=== PATIENT | female | born 1965 | race African-American/Black ===

== ENCOUNTER 2021-06-02 13:00 | Inpatient (IN) | payer OTHER ==
[2021-06-02 16:01] VITALS: BMI 20.9
[2021-06-02] MEDS ORDERED: MAGNESIUM CITRATE 300 ML BOTTLE PO PRN (17:17)
[2021-06-02] MEDS ORDERED: P-EPHED 60MG/TRIPROLIDI 2.5MG TABLET PO PRN (17:17)
[2021-06-02] MEDS ORDERED: MAGNESIUM HYDROX 2400MG/30ML ORAL SUSPENSION 30 ML CUP PO PRN (17:17)
[2021-06-02] MEDS ORDERED: LOPERAMIDE HCL 2 MG CAPSULE PO PRN (17:17)
[2021-06-02] MEDS ORDERED: NICOTINE 10 MG CARTRIDGE (INHALER) IH PRN (17:17)
[2021-06-02] MEDS ORDERED: guaiFENesin 200 MG/10 ML 10 ML UNIT-DOSE CUPS PO PRN (17:17)
[2021-06-02] MEDS ORDERED: ALBUTEROL SO4 HFA INHALER IH PRN (17:30)
[2021-06-02] MEDS ORDERED: SIMETHICONE 125 MG PO PRN (17:43)
[2021-06-02] MEDS ORDERED: diphenhydrAMINE HCL 25 MG CAPSULE (FP) PO PRN (17:43)
[2021-06-02] MEDS ORDERED: EMTRICITABINE 200MG/TENOFOVIR 300MG PO SCH (17:45)
[2021-06-02] MEDS ORDERED: ATAZANAVIR SO4 300 MG CAPSULE PO SCH (18:00)
[2021-06-02] MEDS ORDERED: SIMETHICONE 80 MG TAB.CHEW (FP) PO PRN (18:10)
[2021-06-02] MEDS: PANTOPRAZOLE 40 MG TABLET PO SCH (18:44)
[2021-06-02] MEDS: hydrOXYzine PAMOATE 25 MG CAPSULE (FP) PO SCH ×2 (18:44→21:10)
[2021-06-02] MEDS: BICTEGRAV/EMTRICIT/TENOFOV (BIKTARVY) 50-200-25 MG TABLET PO SCH (19:36)
[2021-06-02] MEDS: ACETAMINOPHEN 325 MG TABLET (FP) PO PRN (19:57)
[2021-06-02] MEDS: MELATONIN 5 MG TABLETS PO SCH (21:09)
[2021-06-02] MEDS: THIAMINE HCL 100 MG TABLET (FP) PO SCH (21:09)
[2021-06-02] MEDS ORDERED: PATIENT'S OWN MEDICATION (NON-FORMULARY) (Omeprazole 20 MG Capsule.Dr) PO SCH (22:00)
[2021-06-02 22:39] LABS: EPI CELLS 3 /uL (0-25.1); HYALINE CASTS 0 /uL (0-3.1); URINE APPEARANCE CLEAR; URINE BACTERIA 34 /uL (0-1359); URINE BILIRUBIN NEGATIVE (NEGATIVE); URINE COLOR YELLOW; URINE GLUCOSE (UA) NEGATIVE (NEGATIVE); URINE KETONE NEGATIVE (NEGATIVE); URINE LEUK ESTERASE 1+ (NEGATIVE); URINE NITRITE NEGATIVE (NEGATIVE); URINE PROTEIN NEGATIVE (NEGATIVE); URINE RBC 4 /uL (0-23.9); URINE UROBILINOGEN 0.2 mg/dL (0.2-1.0); URINE WBC 30 /uL (0-25.8)
[2021-06-03] MEDS: hydrOXYzine PAMOATE 25 MG CAPSULE (FP) PO SCH ×3 (06:42→13:25)
[2021-06-03 10:09] LABS: HEMATOCRIT 35.9 % (32.4-45.2); HEMOGLOBIN 12.4 GM/dL (10.7-15.3); MCHC 34.6 g/dl (32.0-36.0); MEAN CELL VOLUME 98.2 fl (80-96); MEAN PLT VOLUME 8.1 fl (7.5-11.1); PLATELET COUNT 321 10^3/uL (134-434); RBC 3.66 M/mm3 (3.60-5.2); WHITE BLOOD COUNT 4.4 K/mm3 (4.0-10.0)
[2021-06-03 10:29] LABS: CALCIUM 8.8 mg/dL (8.5-10.1)
[2021-06-03 10:30] LABS: ALBUMIN 3.4 g/dl (3.4-5.0); BLOOD UREA NITROGEN 16.5 mg/dL (7-18)
[2021-06-03 10:33] LABS: CREATININE 0.8 mg/dL (0.55-1.3)
[2021-06-03 10:35] LABS: TOT PROT 7.2 g/dl (6.4-8.2)
[2021-06-03] MEDS: PRENATAL VITAMINS W/ FOLIC ACID TABLET (FP) PO SCH (11:24)
[2021-06-03] MEDS: PANTOPRAZOLE 40 MG TABLET PO SCH (11:25)
[2021-06-03] MEDS: BICTEGRAV/EMTRICIT/TENOFOV (BIKTARVY) 50-200-25 MG TABLET PO SCH (11:25)
[2021-06-03] MEDS: IBUPROFEN 400 MG TABLET (FP) PO PRN ×2 (11:44→18:15)
[2021-06-03] MEDS: hydrOXYzine HCL 10 MG/5 ML LIQUID BULK BOTTLE PO PRN (18:15)
[2021-06-03] MEDS: MELATONIN 5 MG TABLETS PO SCH (21:33)
[2021-06-03] MEDS: THIAMINE HCL 100 MG TABLET (FP) PO SCH (21:33)
[2021-06-03] MEDS: ACETAMINOPHEN 325 MG TABLET (FP) PO PRN (21:34)
[2021-06-04] MEDS ORDERED: diphenhydrAMINE HCL 25 MG CAPSULE (FP) PO ONE (01:40)
[2021-06-04] MEDS: ACETAMINOPHEN 325 MG TABLET (FP) PO PRN (01:45)
[2021-06-04] MEDS: IBUPROFEN 400 MG TABLET (FP) PO PRN ×2 (10:30→19:02)
[2021-06-04] MEDS: PRENATAL VITAMINS W/ FOLIC ACID TABLET (FP) PO SCH (10:30)
[2021-06-04] MEDS: PANTOPRAZOLE 40 MG TABLET PO SCH (10:30)
[2021-06-04] MEDS: hydrOXYzine HCL 10 MG/5 ML LIQUID BULK BOTTLE PO PRN ×2 (10:32→21:58)
[2021-06-04] MEDS ORDERED: PT OWN MED DRAWER 7, Y5N ONE (10:33)
[2021-06-04] MEDS: BICTEGRAV/EMTRICIT/TENOFOV (BIKTARVY) 50-200-25 MG TABLET PO SCH (11:35)
[2021-06-04] MEDS: MELATONIN 5 MG TABLETS PO SCH (21:12)
[2021-06-04] MEDS: THIAMINE HCL 100 MG TABLET (FP) PO SCH (21:13)
[2021-06-05] MEDS: IBUPROFEN 400 MG TABLET (FP) PO PRN ×2 (10:07→18:45)
[2021-06-05] MEDS: PRENATAL VITAMINS W/ FOLIC ACID TABLET (FP) PO SCH (10:07)
[2021-06-05] MEDS: PANTOPRAZOLE 40 MG TABLET PO SCH (10:07)
[2021-06-05] MEDS: BICTEGRAV/EMTRICIT/TENOFOV (BIKTARVY) 50-200-25 MG TABLET PO SCH (11:06)
[2021-06-05] MEDS: THIAMINE HCL 100 MG TABLET (FP) PO SCH (21:14)
[2021-06-05] MEDS: MELATONIN 5 MG TABLETS PO SCH (21:14)
[2021-06-05] MEDS: hydrOXYzine HCL 10 MG/5 ML LIQUID BULK BOTTLE PO PRN (21:15)
[2021-06-05] MEDS: ACETAMINOPHEN 325 MG TABLET (FP) PO PRN (22:40)
[2021-06-06] MEDS: IBUPROFEN 400 MG TABLET (FP) PO PRN (06:56)
[2021-06-06] MEDS: BICTEGRAV/EMTRICIT/TENOFOV (BIKTARVY) 50-200-25 MG TABLET PO SCH (10:08)
[2021-06-06] MEDS: PRENATAL VITAMINS W/ FOLIC ACID TABLET (FP) PO SCH (10:08)
[2021-06-06] MEDS: PANTOPRAZOLE 40 MG TABLET PO SCH (10:08)
[2021-06-06] MEDS: ACETAMINOPHEN 325 MG TABLET (FP) PO PRN ×3 (10:09→19:51)
[2021-06-06] MEDS: THIAMINE HCL 100 MG TABLET (FP) PO SCH (21:13)
[2021-06-06] MEDS: MELATONIN 5 MG TABLETS PO SCH (21:13)
[2021-06-06] MEDS: hydrOXYzine HCL 10 MG/5 ML LIQUID BULK BOTTLE PO PRN (21:14)
[2021-06-07] MEDS: ACETAMINOPHEN 325 MG TABLET (FP) PO PRN ×3 (06:50→21:25)
[2021-06-07] MEDS: PRENATAL VITAMINS W/ FOLIC ACID TABLET (FP) PO SCH (10:05)
[2021-06-07] MEDS: PANTOPRAZOLE 40 MG TABLET PO SCH (10:05)
[2021-06-07] MEDS: BICTEGRAV/EMTRICIT/TENOFOV (BIKTARVY) 50-200-25 MG TABLET PO SCH (10:05)
[2021-06-07] MEDS: IBUPROFEN 400 MG TABLET (FP) PO PRN (10:06)
[2021-06-07] MEDS: THIAMINE HCL 100 MG TABLET (FP) PO SCH (21:22)
[2021-06-07] MEDS: MELATONIN 5 MG TABLETS PO SCH (21:22)
[2021-06-07] MEDS: MAG HYDROX/AL HYDROX/SIMETH 30 ML UNIT-DOSE CUP PO PRN (21:23)
[2021-06-07] MEDS: hydrOXYzine HCL 10 MG/5 ML LIQUID BULK BOTTLE PO PRN (21:24)
[2021-06-08] MEDS: ACETAMINOPHEN 325 MG TABLET (FP) PO PRN ×2 (06:45→21:35)
[2021-06-08] MEDS ORDERED: MASKS NR ONE (06:49)
[2021-06-08] MEDS: PANTOPRAZOLE 40 MG TABLET PO SCH (09:42)
[2021-06-08] MEDS: BICTEGRAV/EMTRICIT/TENOFOV (BIKTARVY) 50-200-25 MG TABLET PO SCH (09:42)
[2021-06-08] MEDS: PRENATAL VITAMINS W/ FOLIC ACID TABLET (FP) PO SCH (09:43)
[2021-06-08] MEDS: IBUPROFEN 400 MG TABLET (FP) PO PRN (09:45)
[2021-06-08] MEDS ORDERED: COLLOIDAL OATMEAL 1 BAR EACH TP PRN (10:09)
[2021-06-08] MEDS: NAPROXEN 500 MG TABLET PO SCH ×2 (10:52→21:31)
[2021-06-08] MEDS ORDERED: PT OWN MED DRAWER 7, Y5N ONE (19:48)
[2021-06-08] MEDS: diphenhydrAMINE HCL 25 MG CAPSULE (FP) PO SCH (21:31)
[2021-06-08] MEDS: THIAMINE HCL 100 MG TABLET (FP) PO SCH (21:31)
[2021-06-08] MEDS: MELATONIN 5 MG TABLETS PO SCH (21:31)
[2021-06-08] MEDS: LIDOCAINE HCL 5% TOP OINTMENT 50 GM TUBE TP SCH (21:33)
[2021-06-08] MEDS: MAG HYDROX/AL HYDROX/SIMETH 30 ML UNIT-DOSE CUP PO PRN (23:33)
[2021-06-09] MEDS: ACETAMINOPHEN 325 MG TABLET (FP) PO PRN ×2 (06:38→10:05)
[2021-06-09] MEDS: MAG HYDROX/AL HYDROX/SIMETH 30 ML UNIT-DOSE CUP PO PRN (06:41)
[2021-06-09 07:07] VITALS: TEMP 96.9
[2021-06-09] MEDS ORDERED: PT OWN MED DRAWER 7, Y5N ONE ×2 (09:06→21:37)
[2021-06-09] MEDS: NAPROXEN 500 MG TABLET PO SCH ×2 (10:05→21:35)
[2021-06-09] MEDS: PANTOPRAZOLE 40 MG TABLET PO SCH (10:05)
[2021-06-09] MEDS: BICTEGRAV/EMTRICIT/TENOFOV (BIKTARVY) 50-200-25 MG TABLET PO SCH (10:06)
[2021-06-09] MEDS: PRENATAL VITAMINS W/ FOLIC ACID TABLET (FP) PO SCH (10:06)
[2021-06-09] MEDS: THIAMINE HCL 100 MG TABLET (FP) PO SCH (21:35)
[2021-06-09] MEDS: diphenhydrAMINE HCL 25 MG CAPSULE (FP) PO SCH (21:35)
[2021-06-09] MEDS: MELATONIN 5 MG TABLETS PO SCH (21:35)
[2021-06-09] MEDS: hydrOXYzine HCL 10 MG/5 ML LIQUID BULK BOTTLE PO PRN (21:36)
[2021-06-09] MEDS: LIDOCAINE HCL 5% TOP OINTMENT 50 GM TUBE TP SCH (21:37)
[2021-06-10] MEDS: ACETAMINOPHEN 325 MG TABLET (FP) PO PRN ×2 (06:10→17:17)
[2021-06-10] MEDS: MAG HYDROX/AL HYDROX/SIMETH 30 ML UNIT-DOSE CUP PO PRN (06:10)
[2021-06-10 06:33] VITALS: BP 123/80; PULSE 82
[2021-06-10] MEDS: PANTOPRAZOLE 40 MG TABLET PO SCH (09:58)
[2021-06-10] MEDS: NAPROXEN 500 MG TABLET PO SCH ×2 (09:58→21:22)
[2021-06-10] MEDS: BICTEGRAV/EMTRICIT/TENOFOV (BIKTARVY) 50-200-25 MG TABLET PO SCH (09:58)
[2021-06-10] MEDS: PRENATAL VITAMINS W/ FOLIC ACID TABLET (FP) PO SCH (09:58)
[2021-06-10] MEDS ORDERED: PT OWN MED DRAWER 7, Y5N ONE ×3 (10:01→19:23)
[2021-06-10] MEDS: diphenhydrAMINE HCL 25 MG CAPSULE (FP) PO SCH (21:22)
[2021-06-10] MEDS: MELATONIN 5 MG TABLETS PO SCH (21:24)
[2021-06-10] MEDS: THIAMINE HCL 100 MG TABLET (FP) PO SCH (21:24)
[2021-06-10] MEDS: LIDOCAINE HCL 5% TOP OINTMENT 50 GM TUBE TP SCH (21:25)
[2021-06-11] MEDS: MAG HYDROX/AL HYDROX/SIMETH 30 ML UNIT-DOSE CUP PO PRN (03:30)
[2021-06-11] MEDS: ACETAMINOPHEN 325 MG TABLET (FP) PO PRN (03:31)
[2021-06-11] MEDS ORDERED: PT OWN MED DRAWER 7, Y5N ONE ×2 (06:07→08:52)
[2021-06-11] MEDS: PRENATAL VITAMINS W/ FOLIC ACID TABLET (FP) PO SCH (09:25)
[2021-06-11] MEDS: BICTEGRAV/EMTRICIT/TENOFOV (BIKTARVY) 50-200-25 MG TABLET PO SCH (09:26)
[2021-06-11] MEDS: PANTOPRAZOLE 40 MG TABLET PO SCH (09:26)
[2021-06-11] MEDS: NAPROXEN 500 MG TABLET PO SCH (09:26)
== END 2021-06-11 09:52 | disposition home or self-care (01) | DRG 772 ==
LOC: YASAS 13:00 → Y3W 16:51
PROVIDERS: ADMIT Allergy & Immunology; ATTEND Allergy & Immunology
PROC: HZ42ZZZ Group Counseling for Substance Abuse Treatment, Cognitive-Behavioral (ICD-10-PCS; principal; 2021-06-02)
DX: F10.20 Alcohol dependence, uncomplicated (principal); F14.20 Cocaine dependence, uncomplicated; F17.210 Nicotine dependence, cigarettes, uncomplicated; F10.24 Alcohol dependence with alcohol-induced mood disorder; F10.280 Alcohol dependence with alcohol-induced anxiety disorder; F10.282 Alcohol dependence with alcohol-induced sleep disorder; B20 Human immunodeficiency virus [HIV] disease; J45.909 Unspecified asthma, uncomplicated; K21.9 Gastro-esophageal reflux disease without esophagitis; D57.3 Sickle-cell trait; L29.9 Pruritus, unspecified; M79.10 Myalgia, unspecified site; M81.0 Age-related osteoporosis without current pathological fracture; Z86.19 Personal history of other infectious and parasitic diseases; Z56.0 Unemployment, unspecified
CPT/HCPCS: 36415; 71046-TC-FY; 80053; 81003; 85027; 86593; 86780; C9803; U0003; U0005

== ENCOUNTER 2021-07-31 13:23 | Inpatient (IN) | payer OTHER ==
[2021-07-31] MEDS ORDERED: MAGNESIUM CITRATE 300 ML BOTTLE PO PRN (15:34)
[2021-07-31] MEDS ORDERED: MENTHOL/PHENOL 1 EACH UD MM PRN (15:34)
[2021-07-31] MEDS ORDERED: MAGNESIUM HYDROX 2400MG/30ML ORAL SUSPENSION 30 ML CUP PO PRN (15:34)
[2021-07-31] MEDS ORDERED: P-EPHED 60MG/TRIPROLIDI 2.5MG TABLET PO PRN (15:34)
[2021-07-31] MEDS ORDERED: guaiFENesin 200 MG/10 ML 10 ML UNIT-DOSE CUPS PO PRN (15:34)
[2021-07-31] MEDS ORDERED: MAG HYDROX/AL HYDROX/SIMETH 30 ML UNIT-DOSE CUP PO PRN (15:34)
[2021-07-31] MEDS ORDERED: LOPERAMIDE HCL 2 MG CAPSULE PO PRN (15:34)
[2021-07-31] MEDS ORDERED: ALBUTEROL SO4 HFA INHALER IH PRN (15:52)
[2021-07-31 21:17] VITALS: BMI 20.5
[2021-08-01] MEDS: NAPROXEN 375 MG TABLET PO SCH ×3 (00:24→21:57)
[2021-08-01] MEDS: THIAMINE HCL 100 MG TABLET (FP) PO SCH ×2 (00:24→21:56)
[2021-08-01] MEDS: MELATONIN 5 MG TABLETS PO SCH ×2 (00:25→21:56)
[2021-08-01] MEDS ORDERED: ERGOCALCIFEROL (VIT D2) 50,000 UNIT (1.25 MG) CAPSULE PO SCH (10:00)
[2021-08-01] MEDS ORDERED: MULTIVITAMINS (DAILY MVI) TABLET (FP) PO SCH (11:00)
[2021-08-01] MEDS: PANTOPRAZOLE 40 MG TABLET PO SCH (11:15)
[2021-08-01] MEDS: COLLOIDAL OATMEAL 1 BAR EACH TP PRN (11:17)
[2021-08-01] MEDS: BICTEGRAV/EMTRICIT/TENOFOV (BIKTARVY) 50-200-25 MG TABLET PO SCH (11:18)
[2021-08-01] MEDS: PRENATAL VITAMINS W/ FOLIC ACID TABLET (FP) PO SCH (11:18)
[2021-08-01] MEDS: FLUTICASONE/SALMETEROL 100 MCG/50 MCG DISKUS IH SCH ×2 (14:28→21:56)
[2021-08-01] MEDS: ASCORBIC ACID 250 MG TABLET (FP) PO SCH (14:30)
[2021-08-01] MEDS: ACETAMINOPHEN 325 MG TABLET (FP) PO PRN (14:35)
[2021-08-01] MEDS: GABAPENTIN 300 MG CAPSULE PO SCH ×2 (14:35→21:56)
[2021-08-01 14:38] LABS: EOS % 7.7 % (0-4.5); HEMATOCRIT 33.9 % (32.4-45.2); HEMOGLOBIN 11.5 GM/dL (10.7-15.3); LYMPH % 31.2 % (8-40); MCH 33.1 pg (25.7-33.7); MEAN CELL VOLUME 97.2 fl (80-96); MEAN PLT VOLUME 8.5 fl (7.5-11.1); MONO % 10.4 % (3.8-10.2); NEUT % 49.7 % (42.8-82.8); PLATELET COUNT 387 10^3/uL (134-434); RBC 3.49 M/mm3 (3.60-5.2); RDW 14.2 % (11.6-15.6); WHITE BLOOD COUNT 4.4 K/mm3 (4.0-10.0)
[2021-08-01] MEDS: hydrOXYzine PAMOATE 25 MG CAPSULE (FP) PO PRN (21:56)
[2021-08-01] MEDS: METHYL SALICYLATE/MENTHOL OINT 30 GM TUBE TP SCH (21:56)
[2021-08-01] MEDS: SIMETHICONE 80 MG TAB.CHEW (FP) PO PRN (21:59)
[2021-08-01 23:00] LABS: BLOOD UREA NITROGEN 15.3 mg/dL (7-18); CREATININE 0.6 mg/dL (0.55-1.3)
[2021-08-01 23:01] LABS: ALBUMIN 3.6 g/dl (3.4-5.0); BILIRUBIN,TOTAL 0.2 mg/dL (0.2-1); CALCIUM 8.9 mg/dL (8.5-10.1)
[2021-08-02] MEDS: GABAPENTIN 300 MG CAPSULE PO SCH ×3 (06:57→21:52)
[2021-08-02] MEDS: PRENATAL VITAMINS W/ FOLIC ACID TABLET (FP) PO SCH (10:38)
[2021-08-02] MEDS: PANTOPRAZOLE 40 MG TABLET PO SCH (10:38)
[2021-08-02] MEDS: CALCIUM CARBONATE 650 MG TABLET PO SCH (10:39)
[2021-08-02] MEDS: VITAMIN B COMPLEX W/C COMBO TABLET (FP) PO SCH (10:39)
[2021-08-02] MEDS: FLUTICASONE/SALMETEROL 100 MCG/50 MCG DISKUS IH SCH ×2 (10:39→21:52)
[2021-08-02] MEDS: ASCORBIC ACID 250 MG TABLET (FP) PO SCH (10:39)
[2021-08-02] MEDS: NAPROXEN 375 MG TABLET PO SCH ×2 (10:40→21:54)
[2021-08-02] MEDS: METHYL SALICYLATE/MENTHOL OINT 30 GM TUBE TP SCH ×2 (10:42→21:52)
[2021-08-02] MEDS: BICTEGRAV/EMTRICIT/TENOFOV (BIKTARVY) 50-200-25 MG TABLET PO SCH (10:42)
[2021-08-02] MEDS: ACETAMINOPHEN 325 MG TABLET (FP) PO PRN (10:45)
[2021-08-02] MEDS: THIAMINE HCL 100 MG TABLET (FP) PO SCH (21:52)
[2021-08-02] MEDS: SIMETHICONE 80 MG TAB.CHEW (FP) PO PRN (21:52)
[2021-08-02] MEDS: hydrOXYzine PAMOATE 25 MG CAPSULE (FP) PO PRN (21:52)
[2021-08-02] MEDS: MELATONIN 5 MG TABLETS PO SCH (21:52)
[2021-08-03] MEDS: GABAPENTIN 300 MG CAPSULE PO SCH ×3 (06:42→21:17)
[2021-08-03] MEDS ORDERED: PT OWN MED DRAWER 7, Y5N ONE (09:23)
[2021-08-03] MEDS: BICTEGRAV/EMTRICIT/TENOFOV (BIKTARVY) 50-200-25 MG TABLET PO SCH (10:23)
[2021-08-03] MEDS: METHYL SALICYLATE/MENTHOL OINT 30 GM TUBE TP SCH (10:23)
[2021-08-03] MEDS: PRENATAL VITAMINS W/ FOLIC ACID TABLET (FP) PO SCH (10:23)
[2021-08-03] MEDS: PANTOPRAZOLE 40 MG TABLET PO SCH (10:23)
[2021-08-03] MEDS: NAPROXEN 375 MG TABLET PO SCH ×2 (10:24→21:16)
[2021-08-03] MEDS: CALCIUM CARBONATE 650 MG TABLET PO SCH (10:25)
[2021-08-03] MEDS: VITAMIN B COMPLEX W/C COMBO TABLET (FP) PO SCH (10:25)
[2021-08-03] MEDS: FLUTICASONE/SALMETEROL 100 MCG/50 MCG DISKUS IH SCH ×2 (10:26→21:17)
[2021-08-03] MEDS: ASCORBIC ACID 250 MG TABLET (FP) PO SCH (10:27)
[2021-08-03] MEDS: SIMETHICONE 80 MG TAB.CHEW (FP) PO PRN (10:30)
[2021-08-03] MEDS: ACETAMINOPHEN 325 MG TABLET (FP) PO PRN (13:55)
[2021-08-03] MEDS: LIDOCAINE 5% TOPICAL PATCH TP SCH (13:55)
[2021-08-03] MEDS: THIAMINE HCL 100 MG TABLET (FP) PO SCH (21:15)
[2021-08-03] MEDS: MELATONIN 5 MG TABLETS PO SCH (21:17)
[2021-08-03] MEDS: LIDOCAINE PATCH REMOVAL MC SCH (21:19)
[2021-08-04] MEDS: GABAPENTIN 300 MG CAPSULE PO SCH ×3 (06:27→21:02)
[2021-08-04] MEDS: ACETAMINOPHEN 325 MG TABLET (FP) PO PRN ×2 (06:32→23:34)
[2021-08-04] MEDS: PANTOPRAZOLE 40 MG TABLET PO SCH (10:28)
[2021-08-04] MEDS: PRENATAL VITAMINS W/ FOLIC ACID TABLET (FP) PO SCH (10:28)
[2021-08-04] MEDS: FLUTICASONE/SALMETEROL 100 MCG/50 MCG DISKUS IH SCH ×2 (10:29→21:03)
[2021-08-04] MEDS: BICTEGRAV/EMTRICIT/TENOFOV (BIKTARVY) 50-200-25 MG TABLET PO SCH (10:29)
[2021-08-04] MEDS: CALCIUM CARBONATE 650 MG TABLET PO SCH (10:29)
[2021-08-04] MEDS: LIDOCAINE 5% TOPICAL PATCH TP SCH (10:31)
[2021-08-04] MEDS: VITAMIN B COMPLEX W/C COMBO TABLET (FP) PO SCH (10:32)
[2021-08-04] MEDS: SIMETHICONE 80 MG TAB.CHEW (FP) PO PRN (10:59)
[2021-08-04] MEDS: NAPROXEN 375 MG TABLET PO SCH ×2 (10:59→21:02)
[2021-08-04] MEDS: ASCORBIC ACID 250 MG TABLET (FP) PO SCH (11:00)
[2021-08-04] MEDS ORDERED: PT OWN MED DRAWER 7, Y5N ONE ×2 (11:03→19:20)
[2021-08-04] MEDS: MELATONIN 5 MG TABLETS PO SCH (21:02)
[2021-08-04] MEDS: THIAMINE HCL 100 MG TABLET (FP) PO SCH (21:02)
[2021-08-04] MEDS: LIDOCAINE PATCH REMOVAL MC SCH (21:03)
[2021-08-04] MEDS: hydrOXYzine PAMOATE 25 MG CAPSULE (FP) PO PRN (23:34)
[2021-08-05] MEDS: GABAPENTIN 300 MG CAPSULE PO SCH ×3 (06:17→22:03)
[2021-08-05] MEDS: ACETAMINOPHEN 325 MG TABLET (FP) PO PRN (06:19)
[2021-08-05] MEDS: PANTOPRAZOLE 40 MG TABLET PO SCH (10:37)
[2021-08-05] MEDS: PRENATAL VITAMINS W/ FOLIC ACID TABLET (FP) PO SCH (10:37)
[2021-08-05] MEDS: NAPROXEN 375 MG TABLET PO SCH ×2 (10:38→22:02)
[2021-08-05] MEDS: FLUTICASONE/SALMETEROL 100 MCG/50 MCG DISKUS IH SCH ×2 (10:39→22:02)
[2021-08-05] MEDS: VITAMIN B COMPLEX W/C COMBO TABLET (FP) PO SCH (10:40)
[2021-08-05] MEDS: CALCIUM CARBONATE 650 MG TABLET PO SCH (10:41)
[2021-08-05] MEDS: LIDOCAINE 5% TOPICAL PATCH TP SCH (10:41)
[2021-08-05] MEDS: ASCORBIC ACID 250 MG TABLET (FP) PO SCH (10:42)
[2021-08-05] MEDS ORDERED: PT OWN MED DRAWER 7, Y5N ONE (10:55)
[2021-08-05] MEDS: BICTEGRAV/EMTRICIT/TENOFOV (BIKTARVY) 50-200-25 MG TABLET PO SCH (13:18)
[2021-08-05] MEDS: MELATONIN 5 MG TABLETS PO SCH (22:02)
[2021-08-05] MEDS: LIDOCAINE PATCH REMOVAL MC SCH (22:02)
[2021-08-05] MEDS: THIAMINE HCL 100 MG TABLET (FP) PO SCH (22:03)
[2021-08-05] MEDS: SIMETHICONE 80 MG TAB.CHEW (FP) PO PRN (22:06)
[2021-08-06] MEDS: GABAPENTIN 300 MG CAPSULE PO SCH ×3 (07:04→21:12)
[2021-08-06] MEDS: FLUTICASONE/SALMETEROL 100 MCG/50 MCG DISKUS IH SCH ×2 (10:33→21:10)
[2021-08-06] MEDS: NAPROXEN 375 MG TABLET PO SCH ×2 (10:33→21:11)
[2021-08-06] MEDS: CALCIUM CARBONATE 650 MG TABLET PO SCH (10:34)
[2021-08-06] MEDS: ASCORBIC ACID 250 MG TABLET (FP) PO SCH (10:34)
[2021-08-06] MEDS: PANTOPRAZOLE 40 MG TABLET PO SCH (10:34)
[2021-08-06] MEDS: VITAMIN B COMPLEX W/C COMBO TABLET (FP) PO SCH (10:34)
[2021-08-06] MEDS: LIDOCAINE 5% TOPICAL PATCH TP SCH (10:34)
[2021-08-06] MEDS: PRENATAL VITAMINS W/ FOLIC ACID TABLET (FP) PO SCH (10:34)
[2021-08-06] MEDS: BICTEGRAV/EMTRICIT/TENOFOV (BIKTARVY) 50-200-25 MG TABLET PO SCH (10:34)
[2021-08-06] MEDS: SIMETHICONE 80 MG TAB.CHEW (FP) PO PRN ×2 (10:36→21:13)
[2021-08-06] MEDS: BACITRACIN 0.9 GM PACKET TP SCH ×2 (12:34→22:27)
[2021-08-06] MEDS ORDERED: PT OWN MED DRAWER 7, Y5N ONE (20:02)
[2021-08-06] MEDS: MELATONIN 5 MG TABLETS PO SCH (21:11)
[2021-08-06] MEDS: THIAMINE HCL 100 MG TABLET (FP) PO SCH (21:12)
[2021-08-06] MEDS: hydrOXYzine PAMOATE 25 MG CAPSULE (FP) PO PRN (21:13)
[2021-08-06] MEDS: LIDOCAINE PATCH REMOVAL MC SCH (22:27)
[2021-08-07] MEDS: GABAPENTIN 300 MG CAPSULE PO SCH ×3 (07:15→21:24)
[2021-08-07] MEDS: BICTEGRAV/EMTRICIT/TENOFOV (BIKTARVY) 50-200-25 MG TABLET PO SCH (10:43)
[2021-08-07] MEDS: PRENATAL VITAMINS W/ FOLIC ACID TABLET (FP) PO SCH (10:43)
[2021-08-07] MEDS: PANTOPRAZOLE 40 MG TABLET PO SCH (10:43)
[2021-08-07] MEDS: BACITRACIN 0.9 GM PACKET TP SCH ×2 (10:43→21:25)
[2021-08-07] MEDS: CALCIUM CARBONATE 650 MG TABLET PO SCH (10:44)
[2021-08-07] MEDS: ASCORBIC ACID 250 MG TABLET (FP) PO SCH (10:44)
[2021-08-07] MEDS: FLUTICASONE/SALMETEROL 100 MCG/50 MCG DISKUS IH SCH ×2 (10:44→21:28)
[2021-08-07] MEDS: NAPROXEN 375 MG TABLET PO SCH ×2 (10:45→21:26)
[2021-08-07] MEDS: SIMETHICONE 80 MG TAB.CHEW (FP) PO PRN ×2 (10:46→21:29)
[2021-08-07] MEDS: VITAMIN B COMPLEX W/C COMBO TABLET (FP) PO SCH (10:47)
[2021-08-07] MEDS: LIDOCAINE 5% TOPICAL PATCH TP SCH (10:48)
[2021-08-07] MEDS: ACETAMINOPHEN 325 MG TABLET (FP) PO PRN (14:04)
[2021-08-07] MEDS: hydrOXYzine PAMOATE 25 MG CAPSULE (FP) PO PRN (21:24)
[2021-08-07] MEDS: COLLOIDAL OATMEAL 1 BAR EACH TP PRN (21:28)
[2021-08-07] MEDS: MELATONIN 5 MG TABLETS PO SCH (21:28)
[2021-08-07] MEDS: LIDOCAINE PATCH REMOVAL MC SCH (21:28)
[2021-08-07] MEDS: THIAMINE HCL 100 MG TABLET (FP) PO SCH (21:29)
[2021-08-08] MEDS: GABAPENTIN 300 MG CAPSULE PO SCH ×3 (07:11→22:05)
[2021-08-08] MEDS ORDERED: ERGOCALCIFEROL (VIT D2) 50,000 UNIT (1.25 MG) CAPSULE PO SCH (10:00)
[2021-08-08] MEDS: PRENATAL VITAMINS W/ FOLIC ACID TABLET (FP) PO SCH (10:27)
[2021-08-08] MEDS: LIDOCAINE 5% TOPICAL PATCH TP SCH (10:27)
[2021-08-08] MEDS: BACITRACIN 0.9 GM PACKET TP SCH ×2 (10:28→22:04)
[2021-08-08] MEDS: ASCORBIC ACID 250 MG TABLET (FP) PO SCH (10:29)
[2021-08-08] MEDS: NAPROXEN 375 MG TABLET PO SCH ×2 (10:29→22:06)
[2021-08-08] MEDS: VITAMIN B COMPLEX W/C COMBO TABLET (FP) PO SCH (10:29)
[2021-08-08] MEDS: CALCIUM CARBONATE 650 MG TABLET PO SCH (10:31)
[2021-08-08] MEDS: FLUTICASONE/SALMETEROL 100 MCG/50 MCG DISKUS IH SCH ×2 (10:31→22:13)
[2021-08-08] MEDS: PANTOPRAZOLE 40 MG TABLET PO SCH (10:33)
[2021-08-08] MEDS: BICTEGRAV/EMTRICIT/TENOFOV (BIKTARVY) 50-200-25 MG TABLET PO SCH (10:33)
[2021-08-08] MEDS ORDERED: PT OWN MED DRAWER 7, Y5N ONE ×2 (10:50→20:43)
[2021-08-08] MEDS: LIDOCAINE PATCH REMOVAL MC SCH (22:04)
[2021-08-08] MEDS: MELATONIN 5 MG TABLETS PO SCH (22:04)
[2021-08-08] MEDS: THIAMINE HCL 100 MG TABLET (FP) PO SCH (22:05)
[2021-08-08] MEDS: ACETAMINOPHEN 325 MG TABLET (FP) PO PRN (22:11)
[2021-08-09] MEDS: GABAPENTIN 300 MG CAPSULE PO SCH ×3 (07:23→22:10)
[2021-08-09] MEDS: PANTOPRAZOLE 40 MG TABLET PO SCH (10:29)
[2021-08-09] MEDS: PRENATAL VITAMINS W/ FOLIC ACID TABLET (FP) PO SCH (10:29)
[2021-08-09] MEDS: BICTEGRAV/EMTRICIT/TENOFOV (BIKTARVY) 50-200-25 MG TABLET PO SCH (10:29)
[2021-08-09] MEDS: BACITRACIN 0.9 GM PACKET TP SCH ×2 (10:30→22:11)
[2021-08-09] MEDS: CALCIUM CARBONATE 650 MG TABLET PO SCH (10:31)
[2021-08-09] MEDS: VITAMIN B COMPLEX W/C COMBO TABLET (FP) PO SCH (10:31)
[2021-08-09] MEDS: ASCORBIC ACID 250 MG TABLET (FP) PO SCH (10:31)
[2021-08-09] MEDS: NAPROXEN 375 MG TABLET PO SCH ×2 (10:32→22:10)
[2021-08-09] MEDS: LIDOCAINE 5% TOPICAL PATCH TP SCH (10:33)
[2021-08-09] MEDS: FLUTICASONE/SALMETEROL 100 MCG/50 MCG DISKUS IH SCH ×2 (10:35→22:12)
[2021-08-09] MEDS ORDERED: PT OWN MED DRAWER 7, Y5N ONE ×2 (10:45→20:53)
[2021-08-09] MEDS: MELATONIN 5 MG TABLETS PO SCH (22:11)
[2021-08-09] MEDS: hydrOXYzine PAMOATE 25 MG CAPSULE (FP) PO PRN (22:11)
[2021-08-09] MEDS: LIDOCAINE PATCH REMOVAL MC SCH (22:12)
[2021-08-09] MEDS: THIAMINE HCL 100 MG TABLET (FP) PO SCH (22:12)
[2021-08-10] MEDS: GABAPENTIN 300 MG CAPSULE PO SCH ×3 (06:38→21:19)
[2021-08-10] MEDS: ACETAMINOPHEN 325 MG TABLET (FP) PO PRN ×2 (06:40→23:52)
[2021-08-10] MEDS: PANTOPRAZOLE 40 MG TABLET PO SCH (10:43)
[2021-08-10] MEDS: CALCIUM CARBONATE 650 MG TABLET PO SCH (10:43)
[2021-08-10] MEDS: BACITRACIN 0.9 GM PACKET TP SCH ×2 (10:43→21:19)
[2021-08-10] MEDS: PRENATAL VITAMINS W/ FOLIC ACID TABLET (FP) PO SCH (10:43)
[2021-08-10] MEDS: BICTEGRAV/EMTRICIT/TENOFOV (BIKTARVY) 50-200-25 MG TABLET PO SCH (10:43)
[2021-08-10] MEDS: ASCORBIC ACID 250 MG TABLET (FP) PO SCH (10:43)
[2021-08-10] MEDS: NAPROXEN 375 MG TABLET PO SCH ×2 (10:44→21:19)
[2021-08-10] MEDS: LIDOCAINE 5% TOPICAL PATCH TP SCH (10:45)
[2021-08-10] MEDS: SIMETHICONE 80 MG TAB.CHEW (FP) PO PRN (10:46)
[2021-08-10] MEDS: VITAMIN B COMPLEX W/C COMBO TABLET (FP) PO SCH (10:46)
[2021-08-10] MEDS: FLUTICASONE/SALMETEROL 100 MCG/50 MCG DISKUS IH SCH ×2 (12:11→21:19)
[2021-08-10] MEDS: THIAMINE HCL 100 MG TABLET (FP) PO SCH (21:20)
[2021-08-10] MEDS: LIDOCAINE PATCH REMOVAL MC SCH (21:20)
[2021-08-10] MEDS: MELATONIN 5 MG TABLETS PO SCH (21:20)
[2021-08-11] MEDS: ACETAMINOPHEN 325 MG TABLET (FP) PO PRN ×3 (06:09→23:09)
[2021-08-11] MEDS: GABAPENTIN 300 MG CAPSULE PO SCH ×3 (06:10→21:15)
[2021-08-11] MEDS: FLUTICASONE/SALMETEROL 100 MCG/50 MCG DISKUS IH SCH ×2 (10:50→21:16)
[2021-08-11] MEDS: BACITRACIN 0.9 GM PACKET TP SCH ×2 (10:51→21:16)
[2021-08-11] MEDS: ASCORBIC ACID 250 MG TABLET (FP) PO SCH (10:51)
[2021-08-11] MEDS: VITAMIN B COMPLEX W/C COMBO TABLET (FP) PO SCH (10:51)
[2021-08-11] MEDS: PANTOPRAZOLE 40 MG TABLET PO SCH (10:51)
[2021-08-11] MEDS: PRENATAL VITAMINS W/ FOLIC ACID TABLET (FP) PO SCH (10:51)
[2021-08-11] MEDS: NAPROXEN 375 MG TABLET PO SCH ×2 (10:51→21:18)
[2021-08-11] MEDS: BICTEGRAV/EMTRICIT/TENOFOV (BIKTARVY) 50-200-25 MG TABLET PO SCH (10:51)
[2021-08-11] MEDS: CALCIUM CARBONATE 650 MG TABLET PO SCH (10:52)
[2021-08-11] MEDS: LIDOCAINE 5% TOPICAL PATCH TP SCH (10:52)
[2021-08-11] MEDS ORDERED: PT OWN MED DRAWER 7, Y5N ONE (15:39)
[2021-08-11] MEDS: SIMETHICONE 80 MG TAB.CHEW (FP) PO PRN (15:40)
[2021-08-11] MEDS: THIAMINE HCL 100 MG TABLET (FP) PO SCH (21:15)
[2021-08-11] MEDS: MELATONIN 5 MG TABLETS PO SCH (21:15)
[2021-08-11] MEDS: LIDOCAINE PATCH REMOVAL MC SCH (21:16)
[2021-08-11] MEDS: hydrOXYzine PAMOATE 25 MG CAPSULE (FP) PO PRN (21:19)
[2021-08-12] MEDS: GABAPENTIN 300 MG CAPSULE PO SCH ×3 (06:29→21:34)
[2021-08-12] MEDS: ACETAMINOPHEN 325 MG TABLET (FP) PO PRN ×2 (06:30→23:31)
[2021-08-12] MEDS ORDERED: PT OWN MED DRAWER 7, Y5N ONE (06:30)
[2021-08-12] MEDS: SIMETHICONE 80 MG TAB.CHEW (FP) PO PRN ×2 (06:31→09:43)
[2021-08-12] MEDS: FLUTICASONE/SALMETEROL 100 MCG/50 MCG DISKUS IH SCH ×2 (09:39→21:34)
[2021-08-12] MEDS: BACITRACIN 0.9 GM PACKET TP SCH ×2 (09:39→21:34)
[2021-08-12] MEDS: CALCIUM CARBONATE 650 MG TABLET PO SCH (09:40)
[2021-08-12] MEDS: NAPROXEN 375 MG TABLET PO SCH ×2 (09:40→21:34)
[2021-08-12] MEDS: BICTEGRAV/EMTRICIT/TENOFOV (BIKTARVY) 50-200-25 MG TABLET PO SCH (09:40)
[2021-08-12] MEDS: PANTOPRAZOLE 40 MG TABLET PO SCH (09:41)
[2021-08-12] MEDS: LIDOCAINE 5% TOPICAL PATCH TP SCH (09:41)
[2021-08-12] MEDS: ASCORBIC ACID 250 MG TABLET (FP) PO SCH (09:41)
[2021-08-12] MEDS: PRENATAL VITAMINS W/ FOLIC ACID TABLET (FP) PO SCH (09:41)
[2021-08-12] MEDS: VITAMIN B COMPLEX W/C COMBO TABLET (FP) PO SCH (09:41)
[2021-08-12] MEDS: THIAMINE HCL 100 MG TABLET (FP) PO SCH (21:34)
[2021-08-12] MEDS: hydrOXYzine PAMOATE 25 MG CAPSULE (FP) PO PRN (21:34)
[2021-08-12] MEDS: LIDOCAINE PATCH REMOVAL MC SCH (21:35)
[2021-08-12] MEDS: MELATONIN 5 MG TABLETS PO SCH (21:35)
[2021-08-13] MEDS: ACETAMINOPHEN 325 MG TABLET (FP) PO PRN (06:19)
[2021-08-13] MEDS: SIMETHICONE 80 MG TAB.CHEW (FP) PO PRN ×2 (06:19→09:20)
[2021-08-13] MEDS: GABAPENTIN 300 MG CAPSULE PO SCH (06:19)
[2021-08-13 07:22] VITALS: BP 125/82; PULSE 90; TEMP 94.6
[2021-08-13] MEDS: BACITRACIN 0.9 GM PACKET TP SCH (09:19)
[2021-08-13] MEDS: BICTEGRAV/EMTRICIT/TENOFOV (BIKTARVY) 50-200-25 MG TABLET PO SCH (09:19)
[2021-08-13] MEDS: FLUTICASONE/SALMETEROL 100 MCG/50 MCG DISKUS IH SCH (09:19)
[2021-08-13] MEDS: PANTOPRAZOLE 40 MG TABLET PO SCH (09:19)
[2021-08-13] MEDS: ASCORBIC ACID 250 MG TABLET (FP) PO SCH (09:19)
[2021-08-13] MEDS: VITAMIN B COMPLEX W/C COMBO TABLET (FP) PO SCH (09:20)
[2021-08-13] MEDS: CALCIUM CARBONATE 650 MG TABLET PO SCH (09:20)
[2021-08-13] MEDS: NAPROXEN 375 MG TABLET PO SCH (09:21)
[2021-08-13] MEDS: PRENATAL VITAMINS W/ FOLIC ACID TABLET (FP) PO SCH (09:22)
[2021-08-13] MEDS: LIDOCAINE 5% TOPICAL PATCH TP SCH (09:23)
== END 2021-08-13 09:30 | disposition home or self-care (01) | DRG 774 ==
LOC: YASAS 13:23 → Y5N 21:28
PROVIDERS: ADMIT Allergy & Immunology; ATTEND Allergy & Immunology
PROC: HZ2ZZZZ Detoxification Services for Substance Abuse Treatment (ICD-10-PCS; principal; 2021-07-31)
DX: F10.20 Alcohol dependence, uncomplicated (principal); F14.20 Cocaine dependence, uncomplicated; F12.20 Cannabis dependence, uncomplicated; F17.210 Nicotine dependence, cigarettes, uncomplicated; F19.282 Other psychoactive substance dependence with psychoactive substance-induced sleep disorder; F41.9 Anxiety disorder, unspecified; F32.9 Major depressive disorder, single episode, unspecified; B20 Human immunodeficiency virus [HIV] disease; J45.909 Unspecified asthma, uncomplicated; K21.9 Gastro-esophageal reflux disease without esophagitis; D57.3 Sickle-cell trait; M19.90 Unspecified osteoarthritis, unspecified site; Z99.89 Dependence on other enabling machines and devices
CPT/HCPCS: 36415; 80053; 85025; 86593; 86780; 93005; 93010; C9803; U0003; U0005

== ENCOUNTER 2021-09-10 13:27 | Inpatient (IN) | payer OTHER ==
[2021-09-10] MEDS ORDERED: IBUPROFEN 400 MG TABLET (FP) PO PRN (13:45)
[2021-09-10] MEDS ORDERED: LOPERAMIDE HCL 2 MG CAPSULE PO PRN (13:45)
[2021-09-10] MEDS ORDERED: P-EPHED 60MG/TRIPROLIDI 2.5MG TABLET PO PRN (13:45)
[2021-09-10] MEDS ORDERED: NICOTINE 10 MG CARTRIDGE (INHALER) IH PRN (13:45)
[2021-09-10] MEDS ORDERED: MAG HYDROX/AL HYDROX/SIMETH 30 ML UNIT-DOSE CUP PO PRN (13:45)
[2021-09-10] MEDS ORDERED: MAGNESIUM CITRATE 300 ML BOTTLE PO PRN (13:45)
[2021-09-10] MEDS ORDERED: guaiFENesin 200 MG/10 ML 10 ML UNIT-DOSE CUPS PO PRN (13:45)
[2021-09-10] MEDS ORDERED: MAGNESIUM HYDROX 2400MG/30ML ORAL SUSPENSION 30 ML CUP PO PRN (13:45)
[2021-09-10] MEDS ORDERED: SIMETHICONE 80 MG TAB.CHEW (FP) PO PRN (13:46)
[2021-09-10] MEDS ORDERED: PANTOPRAZOLE 20 MG TABLET PO SCH (14:00)
[2021-09-10 14:16] VITALS: BMI 21.1
[2021-09-10] MEDS ORDERED: COLLOIDAL OATMEAL 1 BAR EACH TP PRN (14:45)
[2021-09-10] MEDS ORDERED: ALBUTEROL SO4 HFA INHALER IH ONE (15:46)
[2021-09-10] MEDS: PRENATAL VITAMINS W/ FOLIC ACID TABLET (FP) PO SCH (15:56)
[2021-09-10] MEDS: hydrOXYzine PAMOATE 25 MG CAPSULE (FP) PO SCH ×3 (15:57→22:10)
[2021-09-10] MEDS: GABAPENTIN 300 MG CAPSULE PO SCH ×2 (15:57→22:10)
[2021-09-10] MEDS: ALBUTEROL SO4 HFA INHALER IH SCH ×3 (15:58→22:10)
[2021-09-10] MEDS: NICOTINE 7 MG/24 HOURS TOPICAL PATCH TD SCH (16:00)
[2021-09-10] MEDS: ACETAMINOPHEN 325 MG TABLET (FP) PO PRN (16:01)
[2021-09-10 17:39] LABS: HEMATOCRIT 35.1 % (32.4-45.2); HEMOGLOBIN 11.9 GM/dL (10.7-15.3); MEAN CELL VOLUME 94.2 fl (80-96); MEAN PLT VOLUME 7.5 fl (7.5-11.1); PLATELET COUNT 407 10^3/uL (134-434); RBC 3.73 M/mm3 (3.60-5.2); RDW 14.6 % (11.6-15.6); WHITE BLOOD COUNT 6.3 K/mm3 (4.0-10.0)
[2021-09-10 17:46] LABS: ALBUMIN 3.7 g/dl (3.4-5.0); CALCIUM 8.9 mg/dL (8.5-10.1)
[2021-09-10 17:49] LABS: CREATININE 0.8 mg/dL (0.55-1.3)
[2021-09-10 17:50] LABS: BILIRUBIN,TOTAL 0.8 mg/dL (0.2-1)
[2021-09-10 18:52] LABS: SYPHILIS W/ RPR CONF REACTIVE (NONREACTIVE)
[2021-09-10] MEDS: THIAMINE HCL 100 MG TABLET (FP) PO SCH (22:10)
[2021-09-10] MEDS: FLUTICASONE/SALMETEROL 100 MCG/50 MCG DISKUS IH SCH (22:10)
[2021-09-10] MEDS: MELATONIN 5 MG TABLETS PO SCH (22:11)
[2021-09-11] MEDS: ALBUTEROL SO4 HFA INHALER IH SCH ×7 (02:24→22:40)
[2021-09-11] MEDS: ACETAMINOPHEN 325 MG TABLET (FP) PO PRN (05:22)
[2021-09-11] MEDS: GABAPENTIN 300 MG CAPSULE PO SCH ×3 (05:24→22:41)
[2021-09-11] MEDS: hydrOXYzine PAMOATE 25 MG CAPSULE (FP) PO SCH ×5 (05:24→22:41)
[2021-09-11] MEDS: PANTOPRAZOLE 20 MG TABLET PO SCH (10:41)
[2021-09-11] MEDS: METHOCARBAMOL 500 MG TABLET PO PRN (10:41)
[2021-09-11] MEDS: CALCIUM 500MG/VIT-D 200 UNITS COMBO TABLET (FP) PO SCH (10:41)
[2021-09-11] MEDS: PRENATAL VITAMINS W/ FOLIC ACID TABLET (FP) PO SCH (10:41)
[2021-09-11] MEDS: BICTEGRAV/EMTRICIT/TENOFOV (BIKTARVY) 50-200-25 MG TABLET PO SCH (10:41)
[2021-09-11] MEDS: NICOTINE 7 MG/24 HOURS TOPICAL PATCH TD SCH (10:42)
[2021-09-11] MEDS: FLUTICASONE/SALMETEROL 100 MCG/50 MCG DISKUS IH SCH ×2 (10:42→22:40)
[2021-09-11] MEDS: THIAMINE HCL 100 MG TABLET (FP) PO SCH (22:41)
[2021-09-11] MEDS: MELATONIN 5 MG TABLETS PO SCH (22:41)
[2021-09-11] MEDS: LIDOCAINE PATCH REMOVAL MC SCH (22:49)
[2021-09-12] MEDS: ALBUTEROL SO4 HFA INHALER IH SCH ×6 (02:00→21:59)
[2021-09-12] MEDS: hydrOXYzine PAMOATE 25 MG CAPSULE (FP) PO SCH ×5 (05:40→21:59)
[2021-09-12] MEDS: GABAPENTIN 300 MG CAPSULE PO SCH ×3 (05:40→21:59)
[2021-09-12] MEDS: LIDOCAINE 5% TOPICAL PATCH TP SCH (10:49)
[2021-09-12] MEDS: METHOCARBAMOL 500 MG TABLET PO PRN ×2 (10:50→22:00)
[2021-09-12] MEDS: CALCIUM 500MG/VIT-D 200 UNITS COMBO TABLET (FP) PO SCH (10:50)
[2021-09-12] MEDS: BICTEGRAV/EMTRICIT/TENOFOV (BIKTARVY) 50-200-25 MG TABLET PO SCH (10:50)
[2021-09-12] MEDS: PANTOPRAZOLE 20 MG TABLET PO SCH (10:50)
[2021-09-12] MEDS: FLUTICASONE/SALMETEROL 100 MCG/50 MCG DISKUS IH SCH ×2 (10:50→21:59)
[2021-09-12] MEDS: PRENATAL VITAMINS W/ FOLIC ACID TABLET (FP) PO SCH (10:50)
[2021-09-12] MEDS: NICOTINE 7 MG/24 HOURS TOPICAL PATCH TD SCH (10:51)
[2021-09-12] MEDS ORDERED: ONDANSETRON *ODT* 4 MG TABLET SL PRN (13:12)
[2021-09-12] MEDS: PATIENT'S OWN MEDICATION (NON-FORMULARY) (Meloxicam [Meloxicam] 15 MG Tablet) PO SCH ×2 (13:42→13:48)
[2021-09-12] MEDS: MELATONIN 5 MG TABLETS PO SCH (21:59)
[2021-09-12] MEDS: THIAMINE HCL 100 MG TABLET (FP) PO SCH (21:59)
[2021-09-12] MEDS: LIDOCAINE PATCH REMOVAL MC SCH (21:59)
[2021-09-13] MEDS: ALBUTEROL SO4 HFA INHALER IH SCH ×6 (03:46→21:54)
[2021-09-13] MEDS: hydrOXYzine PAMOATE 25 MG CAPSULE (FP) PO SCH ×5 (06:08→21:53)
[2021-09-13] MEDS: GABAPENTIN 300 MG CAPSULE PO SCH ×3 (06:08→22:18)
[2021-09-13] MEDS: PRENATAL VITAMINS W/ FOLIC ACID TABLET (FP) PO SCH (10:36)
[2021-09-13] MEDS: LIDOCAINE 5% TOPICAL PATCH TP SCH (10:36)
[2021-09-13] MEDS: BICTEGRAV/EMTRICIT/TENOFOV (BIKTARVY) 50-200-25 MG TABLET PO SCH (10:37)
[2021-09-13] MEDS: PATIENT'S OWN MEDICATION (NON-FORMULARY) (Meloxicam [Meloxicam] 15 MG Tablet) PO SCH (10:37)
[2021-09-13] MEDS: METHOCARBAMOL 500 MG TABLET PO PRN (10:37)
[2021-09-13] MEDS: CALCIUM 500MG/VIT-D 200 UNITS COMBO TABLET (FP) PO SCH (10:37)
[2021-09-13] MEDS: PANTOPRAZOLE 20 MG TABLET PO SCH (10:37)
[2021-09-13] MEDS: NICOTINE 7 MG/24 HOURS TOPICAL PATCH TD SCH ×2 (10:38→10:50)
[2021-09-13] MEDS: FLUTICASONE/SALMETEROL 100 MCG/50 MCG DISKUS IH SCH ×2 (10:39→22:06)
[2021-09-13] MEDS: MELATONIN 5 MG TABLETS PO SCH (21:53)
[2021-09-13] MEDS: THIAMINE HCL 100 MG TABLET (FP) PO SCH (21:54)
[2021-09-13] MEDS: LIDOCAINE PATCH REMOVAL MC SCH (22:06)
[2021-09-14] MEDS: ALBUTEROL SO4 HFA INHALER IH SCH ×3 (02:56→10:42)
[2021-09-14] MEDS: GABAPENTIN 300 MG CAPSULE PO SCH (06:28)
[2021-09-14] MEDS: hydrOXYzine PAMOATE 25 MG CAPSULE (FP) PO SCH ×2 (06:28→10:42)
[2021-09-14 09:58] VITALS: BP 137/75; PULSE 76; TEMP 97.5
[2021-09-14] MEDS: BICTEGRAV/EMTRICIT/TENOFOV (BIKTARVY) 50-200-25 MG TABLET PO SCH (10:36)
[2021-09-14] MEDS: PRENATAL VITAMINS W/ FOLIC ACID TABLET (FP) PO SCH (10:36)
[2021-09-14] MEDS: CALCIUM 500MG/VIT-D 200 UNITS COMBO TABLET (FP) PO SCH (10:36)
[2021-09-14] MEDS: PANTOPRAZOLE 20 MG TABLET PO SCH (10:36)
[2021-09-14] MEDS: NICOTINE 7 MG/24 HOURS TOPICAL PATCH TD SCH (10:37)
[2021-09-14] MEDS: PATIENT'S OWN MEDICATION (NON-FORMULARY) (Meloxicam [Meloxicam] 15 MG Tablet) PO SCH (10:37)
[2021-09-14] MEDS: FLUTICASONE/SALMETEROL 100 MCG/50 MCG DISKUS IH SCH (10:42)
[2021-09-14] MEDS: LIDOCAINE 5% TOPICAL PATCH TP SCH (10:44)
== END 2021-09-14 12:34 | disposition other institution (70) | DRG 774 ==
LOC: YASAS 13:27 → Y6N 14:55
PROVIDERS: ADMIT Allergy & Immunology; ATTEND Allergy & Immunology
PROC: HZ2ZZZZ Detoxification Services for Substance Abuse Treatment (ICD-10-PCS; principal; 2021-09-10)
DX: F10.230 Alcohol dependence with withdrawal, uncomplicated (principal); F14.20 Cocaine dependence, uncomplicated; F17.213 Nicotine dependence, cigarettes, with withdrawal; F10.282 Alcohol dependence with alcohol-induced sleep disorder; F10.280 Alcohol dependence with alcohol-induced anxiety disorder; F10.24 Alcohol dependence with alcohol-induced mood disorder; F41.9 Anxiety disorder, unspecified; B20 Human immunodeficiency virus [HIV] disease; A53.0 Latent syphilis, unspecified as early or late; D57.3 Sickle-cell trait; J43.9 Emphysema, unspecified; J45.20 Mild intermittent asthma, uncomplicated; K21.9 Gastro-esophageal reflux disease without esophagitis; R74.8 Abnormal levels of other serum enzymes; R73.9 Hyperglycemia, unspecified; R76.11 Nonspecific reaction to tuberculin skin test without active tuberculosis; Z99.89 Dependence on other enabling machines and devices; Z86.19 Personal history of other infectious and parasitic diseases; Z86.69 Personal history of other diseases of the nervous system and sense organs; Z79.899 Other long term (current) drug therapy
CPT/HCPCS: 36415; 80053; 82962; 85027; 86593; 86780; 86803; 87811; C9803; U0003; U0005

== ENCOUNTER 2021-09-14 12:47 | Inpatient (IN) | payer OTHER ==
[~2021-09-14 12:47] MED LIST: IBUPROFEN 400 MG TABLET (FP) PO PRN; LOPERAMIDE HCL 2 MG CAPSULE PO PRN; MAG HYDROX/AL HYDROX/SIMETH 30 ML UNIT-DOSE CUP PO PRN; MAGNESIUM CITRATE 300 ML BOTTLE PO PRN; MAGNESIUM HYDROX 2400MG/30ML ORAL SUSPENSION 30 ML CUP PO PRN; NICOTINE 10 MG CARTRIDGE (INHALER) IH PRN; NICOTINE POLACRILEX 2 MG GUM BC PRN; P-EPHED 60MG/TRIPROLIDI 2.5MG TABLET PO PRN; guaiFENesin 200 MG/10 ML 10 ML UNIT-DOSE CUPS PO PRN
[2021-09-14] MEDS ORDERED: ALBUTEROL SO4 HFA INHALER IH PRN (12:49)
[2021-09-14] MEDS: GABAPENTIN 300 MG CAPSULE PO SCH ×2 (14:28→22:16)
[2021-09-14] MEDS: SIMETHICONE 80 MG TAB.CHEW (FP) PO PRN (22:16)
[2021-09-14] MEDS: MELATONIN 5 MG TABLETS PO SCH (22:16)
[2021-09-14] MEDS: THIAMINE HCL 100 MG TABLET (FP) PO SCH (22:16)
[2021-09-14] MEDS: ACETAMINOPHEN 325 MG TABLET (FP) PO PRN (22:17)
[2021-09-14] MEDS: FLUTICASONE/SALMETEROL 100 MCG/50 MCG DISKUS IH SCH (23:14)
[2021-09-15] MEDS: SIMETHICONE 80 MG TAB.CHEW (FP) PO PRN (06:05)
[2021-09-15] MEDS: GABAPENTIN 300 MG CAPSULE PO SCH ×3 (06:05→21:57)
[2021-09-15] MEDS: BICTEGRAV/EMTRICIT/TENOFOV (BIKTARVY) 50-200-25 MG TABLET PO SCH (10:05)
[2021-09-15] MEDS: FLUTICASONE/SALMETEROL 100 MCG/50 MCG DISKUS IH SCH ×2 (10:05→21:59)
[2021-09-15] MEDS: PRENATAL VITAMINS W/ FOLIC ACID TABLET (FP) PO SCH (10:06)
[2021-09-15] MEDS: NICOTINE 7 MG/24 HOURS TOPICAL PATCH TD SCH (10:06)
[2021-09-15] MEDS: CALCIUM 500MG/VIT-D 200 UNITS COMBO TABLET (FP) PO SCH (10:06)
[2021-09-15] MEDS: PATIENT'S OWN MEDICATION (NON-FORMULARY) (Meloxicam [Meloxicam] 15 MG Tablet) PO PRN (10:07)
[2021-09-15] MEDS: ACETAMINOPHEN 325 MG TABLET (FP) PO PRN ×2 (10:09→22:01)
[2021-09-15] MEDS: LIDOCAINE 5% TOPICAL PATCH TP SCH (10:54)
[2021-09-15] MEDS: MELATONIN 5 MG TABLETS PO SCH (21:56)
[2021-09-15] MEDS: LIDOCAINE PATCH REMOVAL MC SCH (21:57)
[2021-09-15] MEDS: THIAMINE HCL 100 MG TABLET (FP) PO SCH (21:57)
[2021-09-15] MEDS: hydrOXYzine PAMOATE 25 MG CAPSULE (FP) PO PRN (22:03)
[2021-09-16] MEDS: ACETAMINOPHEN 325 MG TABLET (FP) PO PRN (06:20)
[2021-09-16] MEDS: GABAPENTIN 300 MG CAPSULE PO SCH ×3 (06:20→21:38)
[2021-09-16] MEDS: hydrOXYzine PAMOATE 25 MG CAPSULE (FP) PO PRN ×3 (06:24→21:38)
[2021-09-16] MEDS ORDERED: COLLOIDAL OATMEAL 1 BAR EACH TP PRN (09:49)
[2021-09-16] MEDS: FLUTICASONE/SALMETEROL 100 MCG/50 MCG DISKUS IH SCH ×2 (10:30→21:37)
[2021-09-16] MEDS: CALCIUM 500MG/VIT-D 200 UNITS COMBO TABLET (FP) PO SCH (10:31)
[2021-09-16] MEDS: NICOTINE 7 MG/24 HOURS TOPICAL PATCH TD SCH (10:31)
[2021-09-16] MEDS: PRENATAL VITAMINS W/ FOLIC ACID TABLET (FP) PO SCH (10:31)
[2021-09-16] MEDS: LIDOCAINE 5% TOPICAL PATCH TP SCH (10:31)
[2021-09-16] MEDS: PATIENT'S OWN MEDICATION (NON-FORMULARY) (Meloxicam [Meloxicam] 15 MG Tablet) PO PRN (10:33)
[2021-09-16] MEDS: BICTEGRAV/EMTRICIT/TENOFOV (BIKTARVY) 50-200-25 MG TABLET PO SCH (10:35)
[2021-09-16] MEDS: BACITRACIN 0.9 GM PACKET TP SCH (12:22)
[2021-09-16] MEDS: LIDOCAINE PATCH REMOVAL MC SCH (21:37)
[2021-09-16] MEDS: THIAMINE HCL 100 MG TABLET (FP) PO SCH (21:38)
[2021-09-16] MEDS: SIMETHICONE 80 MG TAB.CHEW (FP) PO PRN (21:38)
[2021-09-16] MEDS: MELATONIN 5 MG TABLETS PO SCH (21:38)
[2021-09-17] MEDS: GABAPENTIN 300 MG CAPSULE PO SCH (06:25)
[2021-09-17] MEDS: hydrOXYzine PAMOATE 25 MG CAPSULE (FP) PO PRN (06:25)
[2021-09-17 08:24] VITALS: BP 120/72; PULSE 88; TEMP 96.3
[2021-09-17] MEDS: FLUTICASONE/SALMETEROL 100 MCG/50 MCG DISKUS IH SCH (09:48)
[2021-09-17] MEDS: PATIENT'S OWN MEDICATION (NON-FORMULARY) (Meloxicam [Meloxicam] 15 MG Tablet) PO PRN (09:48)
[2021-09-17] MEDS: BACITRACIN 0.9 GM PACKET TP SCH (09:48)
[2021-09-17] MEDS: PRENATAL VITAMINS W/ FOLIC ACID TABLET (FP) PO SCH (09:48)
[2021-09-17] MEDS: CALCIUM 500MG/VIT-D 200 UNITS COMBO TABLET (FP) PO SCH (09:49)
[2021-09-17] MEDS: NICOTINE 7 MG/24 HOURS TOPICAL PATCH TD SCH (09:49)
[2021-09-17] MEDS: BICTEGRAV/EMTRICIT/TENOFOV (BIKTARVY) 50-200-25 MG TABLET PO SCH (09:50)
[2021-09-17] MEDS: LIDOCAINE 5% TOPICAL PATCH TP SCH ×2 (09:51→09:54)
== END 2021-09-17 10:50 | disposition home or self-care (01) | DRG 774 ==
LOC: YASAS 12:47 → Y5N 12:53
PROVIDERS: ADMIT Allergy & Immunology; ATTEND Allergy & Immunology
DX: F10.20 Alcohol dependence, uncomplicated (principal); F14.20 Cocaine dependence, uncomplicated; F17.210 Nicotine dependence, cigarettes, uncomplicated; B20 Human immunodeficiency virus [HIV] disease; J43.9 Emphysema, unspecified; J45.909 Unspecified asthma, uncomplicated; K21.9 Gastro-esophageal reflux disease without esophagitis; Z86.19 Personal history of other infectious and parasitic diseases; Z99.89 Dependence on other enabling machines and devices

== ENCOUNTER 2022-02-24 13:14 | Inpatient (IN) | payer OTHER ==
[2022-02-24] MEDS ORDERED: BISMUTH SUBSALICYLATE 262 MG/15 ML BTL PO PRN (13:33)
[2022-02-24] MEDS ORDERED: NICOTINE 10 MG CARTRIDGE (INHALER) IH PRN (13:33)
[2022-02-24] MEDS ORDERED: chlordiazePOXIDE HCL 25 MG CAPSULE PO PRN (13:33)
[2022-02-24] MEDS ORDERED: MAGNESIUM HYDROX 2400MG/30ML ORAL SUSPENSION 30 ML CUP PO PRN (13:33)
[2022-02-24] MEDS ORDERED: LOPERAMIDE HCL 2 MG CAPSULE PO PRN (13:33)
[2022-02-24] MEDS ORDERED: MAGNESIUM CITRATE 300 ML BOTTLE PO PRN (13:33)
[2022-02-24] MEDS ORDERED: ONDANSETRON *ODT* 4 MG TABLET SL PRN (13:33)
[2022-02-24] MEDS ORDERED: BENZOCAINE/MENTHOL (CHLORASEPTIC ) LOZENGE MM PRN (13:33)
[2022-02-24] MEDS ORDERED: ACETAMINOPHEN 325 MG TABLET (FP) PO PRN (13:33)
[2022-02-24] MEDS ORDERED: DICYCLOMINE HCL 10 MG CAPSULE PO PRN (13:33)
[2022-02-24 13:57] VITALS: BMI 20.2
[2022-02-24] MEDS ORDERED: BICTEGRAV/EMTRICIT/TENOFOV (BIKTARVY) 50-200-25 MG TABLET PO SCH (16:15)
[2022-02-24] MEDS ORDERED: PATIENT'S OWN MEDICATION (NON-FORMULARY) (Meloxicam [Meloxicam] 15 MG Tablet) PO SCH (16:15)
[2022-02-24 17:11] LABS: HEMATOCRIT 36.9 % (32.4-45.2); HEMOGLOBIN 12.4 GM/dL (10.7-15.3); MCH 32.3 pg (25.7-33.7); MCHC 33.5 g/dl (32.0-36.0); MEAN CELL VOLUME 96.4 fl (80-96); MEAN PLT VOLUME 7.8 fl (7.5-11.1); PLATELET COUNT 400 10^3/uL (134-434); RBC 3.82 M/mm3 (3.60-5.2); RDW 13.8 % (11.6-15.6)
[2022-02-24 17:41] LABS: CALCIUM 9.1 mg/dL (8.5-10.1)
[2022-02-24 17:42] LABS: ALBUMIN 3.9 g/dl (3.4-5.0); BLOOD UREA NITROGEN 14.1 mg/dL (7-18)
[2022-02-24 17:46] LABS: CREATININE 0.9 mg/dL (0.55-1.3)
[2022-02-24 17:47] LABS: BILIRUBIN,TOTAL 0.6 mg/dL (0.2-1); TOT PROT 7.8 g/dl (6.4-8.2)
[2022-02-24] MEDS ORDERED: chlordiazePOXIDE HCL 25 MG CAPSULE ONE (17:54)
[2022-02-24] MEDS ORDERED: hydrOXYzine PAMOATE 25 MG CAPSULE (FP) PO ONE (17:54)
[2022-02-24] MEDS ORDERED: IBUPROFEN 400 MG TABLET (FP) PO ONE (17:55)
[2022-02-24] MEDS: chlordiazePOXIDE HCL 25 MG CAPSULE PO SCH ×2 (18:05→23:20)
[2022-02-24] MEDS: IBUPROFEN 400 MG TABLET (FP) PO PRN (18:06)
[2022-02-24] MEDS: hydrOXYzine PAMOATE 25 MG CAPSULE (FP) PO SCH ×2 (18:07→23:20)
[2022-02-24] MEDS: MELATONIN 5 MG TABLETS PO SCH (23:19)
[2022-02-24] MEDS: BICTEGRAV/EMTRICIT/TENOFOV (BIKTARVY) 50-200-25 MG TABLET PO SCH (23:20)
[2022-02-24] MEDS: THIAMINE HCL 100 MG TABLET (FP) PO SCH (23:20)
[2022-02-24] MEDS: GABAPENTIN 300 MG CAPSULE PO SCH (23:20)
[2022-02-24] MEDS ORDERED: ACETAMINOPHEN 325 MG TABLET (FP) ONE (23:36)
[2022-02-24] MEDS: ACETAMINOPHEN 325 MG TABLET (FP) PO PRN (23:37)
[2022-02-25] MEDS: chlordiazePOXIDE HCL 25 MG CAPSULE PO SCH ×3 (06:00→19:08)
[2022-02-25] MEDS: GABAPENTIN 300 MG CAPSULE PO SCH ×2 (07:00→13:42)
[2022-02-25] MEDS: hydrOXYzine PAMOATE 25 MG CAPSULE (FP) PO SCH ×5 (07:00→19:08)
[2022-02-25] MEDS ORDERED: GABAPENTIN 100 MG CAPSULE ONE (07:52)
[2022-02-25] MEDS: PRENATAL VITAMINS W/ FOLIC ACID TABLET (FP) PO SCH ×2 (09:21→12:17)
[2022-02-25] MEDS ORDERED: hydrOXYzine PAMOATE 25 MG CAPSULE (FP) PO ONE (10:09)
[2022-02-25] MEDS ORDERED: chlordiazePOXIDE HCL 25 MG CAPSULE ONE (10:09)
[2022-02-25] MEDS ORDERED: NICOTINE 7 MG/24 HOURS TOPICAL PATCH TD ONE (10:09)
[2022-02-25] MEDS ORDERED: IBUPROFEN 400 MG TABLET (FP) PO ONE (10:13)
[2022-02-25] MEDS: NICOTINE 7 MG/24 HOURS TOPICAL PATCH TD SCH (10:16)
[2022-02-25] MEDS: IBUPROFEN 400 MG TABLET (FP) PO PRN (10:17)
[2022-02-25] MEDS: PANTOPRAZOLE 20 MG TABLET PO SCH (12:17)
[2022-02-25] MEDS: METHOCARBAMOL 500 MG TABLET PO PRN (12:18)
[2022-02-25] MEDS: BICTEGRAV/EMTRICIT/TENOFOV (BIKTARVY) 50-200-25 MG TABLET PO SCH (12:18)
[2022-02-25] MEDS: ALBUTEROL SO4 HFA INHALER IH PRN (12:20)
[2022-02-25] MEDS: FLUTICASONE/SALMETEROL 100 MCG/50 MCG DISKUS IH SCH (12:22)
[2022-02-25] MEDS ORDERED: COLLOIDAL OATMEAL 1 BAR EACH TP PRN (12:29)
[2022-02-26] MEDS: FLUTICASONE/SALMETEROL 100 MCG/50 MCG DISKUS IH SCH ×3 (00:06→22:04)
[2022-02-26] MEDS: chlordiazePOXIDE HCL 25 MG CAPSULE PO SCH ×6 (00:06→23:02)
[2022-02-26] MEDS: MELATONIN 5 MG TABLETS PO SCH ×2 (00:06→23:02)
[2022-02-26] MEDS: GABAPENTIN 300 MG CAPSULE PO SCH ×4 (00:07→23:02)
[2022-02-26] MEDS: hydrOXYzine PAMOATE 25 MG CAPSULE (FP) PO SCH ×6 (00:07→23:02)
[2022-02-26] MEDS: THIAMINE HCL 100 MG TABLET (FP) PO SCH ×2 (00:08→23:02)
[2022-02-26] MEDS: IBUPROFEN 400 MG TABLET (FP) PO PRN ×4 (00:49→19:29)
[2022-02-26] MEDS: PRENATAL VITAMINS W/ FOLIC ACID TABLET (FP) PO SCH (10:30)
[2022-02-26] MEDS: PANTOPRAZOLE 20 MG TABLET PO SCH (10:30)
[2022-02-26] MEDS: BICTEGRAV/EMTRICIT/TENOFOV (BIKTARVY) 50-200-25 MG TABLET PO SCH (10:30)
[2022-02-26] MEDS: NICOTINE 7 MG/24 HOURS TOPICAL PATCH TD SCH (10:32)
[2022-02-26] MEDS: ACETAMINOPHEN 325 MG TABLET (FP) PO PRN (10:34)
[2022-02-26] MEDS ORDERED: ZIPRASIDONE 40 MG CAPSULE PO SCH (17:00)
[2022-02-26] MEDS: ZIPRASIDONE 20 MG CAPSULE PO SCH (18:42)
[2022-02-26] MEDS: MAG HYDROX/AL HYDROX/SIMETH 30 ML UNIT-DOSE CUP PO PRN (20:44)
[2022-02-27] MEDS ORDERED: chlordiazePOXIDE HCL 10 MG CAPSULE PO PRN
[2022-02-27] MEDS: IBUPROFEN 400 MG TABLET (FP) PO PRN ×2 (04:03→17:22)
[2022-02-27] MEDS: chlordiazePOXIDE HCL 10 MG CAPSULE PO SCH ×4 (05:56→22:42)
[2022-02-27] MEDS: hydrOXYzine PAMOATE 25 MG CAPSULE (FP) PO SCH ×2 (05:56→10:18)
[2022-02-27] MEDS: GABAPENTIN 300 MG CAPSULE PO SCH ×3 (05:56→22:42)
[2022-02-27] MEDS: ZIPRASIDONE 20 MG CAPSULE PO SCH ×2 (10:17→17:21)
[2022-02-27] MEDS: PRENATAL VITAMINS W/ FOLIC ACID TABLET (FP) PO SCH (10:17)
[2022-02-27] MEDS: PANTOPRAZOLE 20 MG TABLET PO SCH (10:18)
[2022-02-27] MEDS: BICTEGRAV/EMTRICIT/TENOFOV (BIKTARVY) 50-200-25 MG TABLET PO SCH (10:18)
[2022-02-27] MEDS: FLUTICASONE/SALMETEROL 100 MCG/50 MCG DISKUS IH SCH ×2 (10:18→22:42)
[2022-02-27] MEDS: NICOTINE 7 MG/24 HOURS TOPICAL PATCH TD SCH (10:19)
[2022-02-27] MEDS: MAG HYDROX/AL HYDROX/SIMETH 30 ML UNIT-DOSE CUP PO PRN (11:13)
[2022-02-27] MEDS: LIDOCAINE 5% TOPICAL PATCH TP SCH (12:39)
[2022-02-27] MEDS: MELATONIN 5 MG TABLETS PO SCH (22:41)
[2022-02-27] MEDS: hydrOXYzine PAMOATE 25 MG CAPSULE (FP) PO PRN (22:41)
[2022-02-27] MEDS: LIDOCAINE PATCH REMOVAL MC SCH (22:42)
[2022-02-27] MEDS: THIAMINE HCL 100 MG TABLET (FP) PO SCH (22:42)
[2022-02-28] MEDS: GABAPENTIN 300 MG CAPSULE PO SCH ×3 (06:02→22:15)
[2022-02-28] MEDS: chlordiazePOXIDE HCL 10 MG CAPSULE PO SCH ×2 (06:02→18:37)
[2022-02-28] MEDS: LIDOCAINE 5% TOPICAL PATCH TP SCH (10:59)
[2022-02-28] MEDS: METHOCARBAMOL 500 MG TABLET PO PRN (11:00)
[2022-02-28] MEDS: PRENATAL VITAMINS W/ FOLIC ACID TABLET (FP) PO SCH (11:00)
[2022-02-28] MEDS: PANTOPRAZOLE 20 MG TABLET PO SCH (11:00)
[2022-02-28] MEDS: hydrOXYzine PAMOATE 25 MG CAPSULE (FP) PO PRN ×3 (11:00→22:15)
[2022-02-28] MEDS: IBUPROFEN 400 MG TABLET (FP) PO PRN ×2 (11:00→22:15)
[2022-02-28] MEDS: FLUTICASONE/SALMETEROL 100 MCG/50 MCG DISKUS IH SCH ×2 (11:01→22:53)
[2022-02-28] MEDS: ZIPRASIDONE 20 MG CAPSULE PO SCH ×2 (11:01→18:38)
[2022-02-28] MEDS: NICOTINE 7 MG/24 HOURS TOPICAL PATCH TD SCH (11:02)
[2022-02-28] MEDS: BICTEGRAV/EMTRICIT/TENOFOV (BIKTARVY) 50-200-25 MG TABLET PO SCH (12:47)
[2022-02-28] MEDS: MELATONIN 5 MG TABLETS PO SCH (22:15)
[2022-02-28] MEDS: THIAMINE HCL 100 MG TABLET (FP) PO SCH (22:15)
[2022-02-28] MEDS: LIDOCAINE PATCH REMOVAL MC SCH (22:54)
[2022-03-01] MEDS ORDERED: chlordiazePOXIDE HCL 10 MG CAPSULE PO ONE (05:00)
[2022-03-01] MEDS: GABAPENTIN 300 MG CAPSULE PO SCH ×2 (07:00→14:42)
[2022-03-01] MEDS: ZIPRASIDONE 20 MG CAPSULE PO SCH ×2 (10:23→18:26)
[2022-03-01] MEDS: FLUTICASONE/SALMETEROL 100 MCG/50 MCG DISKUS IH SCH (10:23)
[2022-03-01] MEDS: ALBUTEROL SO4 HFA INHALER IH PRN (10:24)
[2022-03-01] MEDS: LIDOCAINE 5% TOPICAL PATCH TP SCH (10:26)
[2022-03-01] MEDS: NICOTINE 7 MG/24 HOURS TOPICAL PATCH TD SCH (10:47)
[2022-03-01] MEDS: IBUPROFEN 400 MG TABLET (FP) PO PRN ×2 (10:50→18:28)
[2022-03-01] MEDS: PRENATAL VITAMINS W/ FOLIC ACID TABLET (FP) PO SCH (10:52)
[2022-03-01] MEDS: BICTEGRAV/EMTRICIT/TENOFOV (BIKTARVY) 50-200-25 MG TABLET PO SCH (11:42)
[2022-03-01] MEDS: PANTOPRAZOLE 20 MG TABLET PO SCH (11:42)
[2022-03-01 13:04] VITALS: BP 131/71; PULSE 90
[2022-03-01 18:06] VITALS: TEMP 97.8
[2022-03-01] MEDS: hydrOXYzine PAMOATE 25 MG CAPSULE (FP) PO PRN (18:26)
== END 2022-03-01 20:05 | disposition other institution (70) | DRG 774 ==
LOC: YASAS 13:14 → Y6N 02-25 11:22
PROVIDERS: ADMIT Allergy & Immunology; ATTEND Allergy & Immunology
PROC: HZ2ZZZZ Detoxification Services for Substance Abuse Treatment (ICD-10-PCS; principal; 2022-02-25)
DX: F10.230 Alcohol dependence with withdrawal, uncomplicated (principal); F14.20 Cocaine dependence, uncomplicated; F17.210 Nicotine dependence, cigarettes, uncomplicated; F25.9 Schizoaffective disorder, unspecified; F31.9 Bipolar disorder, unspecified; F19.24 Other psychoactive substance dependence with psychoactive substance-induced mood disorder; B20 Human immunodeficiency virus [HIV] disease; J43.9 Emphysema, unspecified; J45.20 Mild intermittent asthma, uncomplicated; K21.9 Gastro-esophageal reflux disease without esophagitis; D57.3 Sickle-cell trait; M25.552 Pain in left hip; Z86.69 Personal history of other diseases of the nervous system and sense organs; Z86.19 Personal history of other infectious and parasitic diseases; Z86.11 Personal history of tuberculosis; Z99.89 Dependence on other enabling machines and devices; W19.XXXA Unspecified fall, initial encounter; Y92.238 Other place in hospital as the place of occurrence of the external cause; Z91.018 Allergy to other foods
CPT/HCPCS: 36415; 80053; 85027; 86593; 86780; C9803-CS; Q0162; U0003; U0005

== ENCOUNTER 2022-03-01 21:37 | Inpatient (IN) | payer OTHER ==
[2022-03-02 07:14] VITALS: BP 156/100; PULSE 83; TEMP 97.3
[2022-03-02] MEDS ORDERED: ALBUTEROL SO4 HFA INHALER IH PRN (07:18)
[2022-03-02] MEDS ORDERED: LOPERAMIDE HCL 2 MG CAPSULE PO PRN (07:20)
[2022-03-02] MEDS ORDERED: MAGNESIUM HYDROX 2400MG/30ML ORAL SUSPENSION 30 ML CUP PO PRN (07:20)
[2022-03-02] MEDS ORDERED: NICOTINE 10 MG CARTRIDGE (INHALER) IH PRN (07:20)
[2022-03-02] MEDS ORDERED: ACETAMINOPHEN 325 MG TABLET (FP) PO PRN (07:20)
[2022-03-02] MEDS ORDERED: MAGNESIUM CITRATE 300 ML BOTTLE PO PRN (07:20)
[2022-03-02] MEDS ORDERED: MAG HYDROX/AL HYDROX/SIMETH 30 ML UNIT-DOSE CUP PO PRN (07:20)
[2022-03-02] MEDS ORDERED: BENZOCAINE/MENTHOL (CHLORASEPTIC ) LOZENGE MM PRN (07:20)
[2022-03-02] MEDS ORDERED: IBUPROFEN 400 MG TABLET (FP) PO PRN (07:20)
[2022-03-02] MEDS ORDERED: P-EPHED 60MG/TRIPROLIDI 2.5MG TABLET PO PRN (07:20)
[2022-03-02] MEDS ORDERED: guaiFENesin 200 MG/10 ML 10 ML UNIT-DOSE CUPS PO PRN (07:20)
[2022-03-02] MEDS ORDERED: cloNIDine HCL 0.1 MG TABLET PO ONE (07:30)
[2022-03-02] MEDS ORDERED: PRENATAL VITAMINS W/ FOLIC ACID TABLET (FP) PO SCH (10:00)
[2022-03-02] MEDS ORDERED: hydrOXYzine PAMOATE 25 MG CAPSULE (FP) PO SCH (10:00)
[2022-03-02] MEDS ORDERED: FLUTICASONE/SALMETEROL 100 MCG/50 MCG DISKUS IH SCH (10:00)
[2022-03-02] MEDS ORDERED: NICOTINE 7 MG/24 HOURS TOPICAL PATCH TD SCH (10:00)
[2022-03-02] MEDS ORDERED: THIAMINE HCL 100 MG TABLET (FP) PO SCH (22:00)
[2022-03-02] MEDS ORDERED: MELATONIN 5 MG TABLETS PO SCH (22:00)
== END 2022-03-02 11:13 | disposition home or self-care (01) | DRG 772 ==
LOC: YASAS 21:37 → Y5N 21:38
PROVIDERS: ADMIT Allergy & Immunology; ATTEND Allergy & Immunology
PROC: HZ42ZZZ Group Counseling for Substance Abuse Treatment, Cognitive-Behavioral (ICD-10-PCS; principal; 2022-03-01)
DX: F10.20 Alcohol dependence, uncomplicated (principal); F14.20 Cocaine dependence, uncomplicated; F17.210 Nicotine dependence, cigarettes, uncomplicated; B20 Human immunodeficiency virus [HIV] disease; J44.9 Chronic obstructive pulmonary disease, unspecified; K21.9 Gastro-esophageal reflux disease without esophagitis; Z86.19 Personal history of other infectious and parasitic diseases; Z99.89 Dependence on other enabling machines and devices
CPT/HCPCS: J0735

== ENCOUNTER 2022-03-26 13:14 | Inpatient (IN) | payer OTHER ==
[2022-03-26 15:34] VITALS: BMI 20.4
[2022-03-26] MEDS ORDERED: ALBUTEROL SO4 HFA INHALER IH PRN (16:26)
[2022-03-26] MEDS ORDERED: guaiFENesin 200 MG/10 ML 10 ML UNIT-DOSE CUPS PO PRN (16:30)
[2022-03-26] MEDS ORDERED: ONDANSETRON *ODT* 4 MG TABLET SL PRN (16:30)
[2022-03-26] MEDS ORDERED: MAGNESIUM CITRATE 300 ML BOTTLE PO PRN (16:30)
[2022-03-26] MEDS ORDERED: ACETAMINOPHEN 325 MG TABLET (FP) PO PRN (16:30)
[2022-03-26] MEDS ORDERED: P-EPHED 60MG/TRIPROLIDI 2.5MG TABLET PO PRN (16:30)
[2022-03-26] MEDS ORDERED: BISMUTH SUBSALICYLATE 524 MG/30 ML PO PRN (16:30)
[2022-03-26] MEDS ORDERED: NICOTINE POLACRILEX 2 MG GUM BUC PRN (16:30)
[2022-03-26] MEDS ORDERED: MAGNESIUM HYDROX 2400MG/30ML ORAL SUSPENSION 30 ML CUP PO PRN (16:30)
[2022-03-26] MEDS ORDERED: DICYCLOMINE HCL 10 MG CAPSULE PO PRN (16:30)
[2022-03-26] MEDS ORDERED: LOPERAMIDE HCL 2 MG CAPSULE PO PRN (16:30)
[2022-03-26] MEDS ORDERED: BENZOCAINE/MENTHOL (CHLORASEPTIC ) LOZENGE MM PRN (16:30)
[2022-03-26] MEDS: IBUPROFEN 400 MG TABLET (FP) PO PRN (21:10)
[2022-03-26] MEDS: METHOCARBAMOL 500 MG TABLET PO PRN (21:10)
[2022-03-26] MEDS: MAG HYDROX/AL HYDROX/SIMETH 30 ML UNIT-DOSE CUP PO PRN (21:14)
[2022-03-26] MEDS: diazePAM 5 MG TABLET PO SCH ×2 (21:16→22:35)
[2022-03-26] MEDS: MELATONIN 5 MG TABLETS PO PRN (22:35)
[2022-03-26] MEDS: THIAMINE HCL 100 MG TABLET (FP) PO SCH (22:35)
[2022-03-26] MEDS: FLUTICASONE/SALMETEROL 100 MCG/50 MCG DISKUS IH SCH (22:35)
[2022-03-27] MEDS: ACETAMINOPHEN 325 MG TABLET (FP) PO PRN ×2 (02:48→06:29)
[2022-03-27] MEDS: METHOCARBAMOL 500 MG TABLET PO PRN (06:29)
[2022-03-27] MEDS: diazePAM 5 MG TABLET PO SCH ×4 (06:32→22:30)
[2022-03-27] MEDS: FLUTICASONE/SALMETEROL 100 MCG/50 MCG DISKUS IH SCH ×2 (11:11→22:31)
[2022-03-27] MEDS: PRENATAL VITAMINS W/ FOLIC ACID TABLET (FP) PO SCH (11:11)
[2022-03-27] MEDS: MAG HYDROX/AL HYDROX/SIMETH 30 ML UNIT-DOSE CUP PO PRN (15:11)
[2022-03-27] MEDS: BICTEGRAV/EMTRICIT/TENOFOV (BIKTARVY) 50-200-25 MG TABLET PO SCH (16:06)
[2022-03-27] MEDS ORDERED: COLLOIDAL OATMEAL 1 BAR EACH TP PRN (18:37)
[2022-03-27] MEDS: FAMOTIDINE 20 MG TABLET PO SCH (18:49)
[2022-03-27] MEDS: GABAPENTIN 300 MG CAPSULE PO SCH (22:28)
[2022-03-27] MEDS: THIAMINE HCL 100 MG TABLET (FP) PO SCH (22:28)
[2022-03-28] MEDS: GABAPENTIN 300 MG CAPSULE PO SCH ×3 (06:10→23:08)
[2022-03-28] MEDS: diazePAM 5 MG TABLET PO SCH ×3 (06:11→23:08)
[2022-03-28] MEDS: ACETAMINOPHEN 325 MG TABLET (FP) PO PRN ×2 (06:12→18:10)
[2022-03-28] MEDS ORDERED: SIMETHICONE 80 MG TAB.CHEW (FP) PO PRN (10:09)
[2022-03-28] MEDS: FLUTICASONE/SALMETEROL 100 MCG/50 MCG DISKUS IH SCH ×2 (10:33→23:08)
[2022-03-28] MEDS: PRENATAL VITAMINS W/ FOLIC ACID TABLET (FP) PO SCH (10:34)
[2022-03-28] MEDS: FAMOTIDINE 20 MG TABLET PO SCH (10:34)
[2022-03-28] MEDS: BICTEGRAV/EMTRICIT/TENOFOV (BIKTARVY) 50-200-25 MG TABLET PO SCH (10:34)
[2022-03-28] MEDS: diazePAM 5 MG TABLET PO PRN (10:36)
[2022-03-28] MEDS: MAG HYDROX/AL HYDROX/SIMETH 30 ML UNIT-DOSE CUP PO PRN (10:38)
[2022-03-28] MEDS: THIAMINE HCL 100 MG TABLET (FP) PO SCH (23:08)
[2022-03-29] MEDS: METHOCARBAMOL 500 MG TABLET PO PRN ×2 (04:39→10:35)
[2022-03-29] MEDS: IBUPROFEN 400 MG TABLET (FP) PO PRN ×2 (04:40→17:36)
[2022-03-29] MEDS: diazePAM 5 MG TABLET PO SCH ×2 (06:29→17:35)
[2022-03-29] MEDS: GABAPENTIN 300 MG CAPSULE PO SCH ×3 (06:29→22:28)
[2022-03-29] MEDS: FLUTICASONE/SALMETEROL 100 MCG/50 MCG DISKUS IH SCH ×2 (10:32→22:28)
[2022-03-29] MEDS: BICTEGRAV/EMTRICIT/TENOFOV (BIKTARVY) 50-200-25 MG TABLET PO SCH (10:35)
[2022-03-29] MEDS: FAMOTIDINE 20 MG TABLET PO SCH (10:35)
[2022-03-29] MEDS: diazePAM 5 MG TABLET PO PRN (10:35)
[2022-03-29] MEDS: PRENATAL VITAMINS W/ FOLIC ACID TABLET (FP) PO SCH (10:35)
[2022-03-29] MEDS: THIAMINE HCL 100 MG TABLET (FP) PO SCH (22:28)
[2022-03-29] MEDS: MELATONIN 5 MG TABLETS PO PRN (22:28)
[2022-03-30] MEDS: GABAPENTIN 300 MG CAPSULE PO SCH ×2 (05:41→13:58)
[2022-03-30] MEDS: IBUPROFEN 400 MG TABLET (FP) PO PRN (05:42)
[2022-03-30] MEDS ORDERED: diazePAM 5 MG TABLET PO ONE (06:00)
[2022-03-30] MEDS: FAMOTIDINE 20 MG TABLET PO SCH (10:38)
[2022-03-30] MEDS: FLUTICASONE/SALMETEROL 100 MCG/50 MCG DISKUS IH SCH (10:38)
[2022-03-30] MEDS: PRENATAL VITAMINS W/ FOLIC ACID TABLET (FP) PO SCH (10:38)
[2022-03-30] MEDS: BICTEGRAV/EMTRICIT/TENOFOV (BIKTARVY) 50-200-25 MG TABLET PO SCH (10:38)
[2022-03-30 12:46] VITALS: BP 105/84; PULSE 91; TEMP 98.7
== END 2022-03-30 13:53 | disposition other institution (70) | DRG 774 ==
LOC: YASAS 13:14 → Y3N 19:42
PROVIDERS: ADMIT Allergy & Immunology; ATTEND Surgery
PROC: HZ2ZZZZ Detoxification Services for Substance Abuse Treatment (ICD-10-PCS; principal; 2022-03-26)
DX: F10.230 Alcohol dependence with withdrawal, uncomplicated (principal); F14.20 Cocaine dependence, uncomplicated; F12.20 Cannabis dependence, uncomplicated; F17.210 Nicotine dependence, cigarettes, uncomplicated; F25.9 Schizoaffective disorder, unspecified; B20 Human immunodeficiency virus [HIV] disease; J43.9 Emphysema, unspecified; K21.9 Gastro-esophageal reflux disease without esophagitis; M16.0 Bilateral primary osteoarthritis of hip; Z88.8 Allergy status to other drugs, medicaments and biological substances; Z91.014 Allergy to mammalian meats
CPT/HCPCS: 87811; C9803-CS; U0003; U0005

== ENCOUNTER 2022-03-30 14:05 | Inpatient (IN) | payer OTHER ==
[2022-03-30] MEDS ORDERED: P-EPHED 60MG/TRIPROLIDI 2.5MG TABLET PO PRN (15:09)
[2022-03-30] MEDS ORDERED: hydrOXYzine PAMOATE 25 MG CAPSULE (FP) PO PRN (15:09)
[2022-03-30] MEDS ORDERED: guaiFENesin 200 MG/10 ML 10 ML UNIT-DOSE CUPS PO PRN (15:09)
[2022-03-30] MEDS ORDERED: BENZOCAINE/MENTHOL (CHLORASEPTIC ) LOZENGE MM PRN (15:09)
[2022-03-30] MEDS ORDERED: LOPERAMIDE HCL 2 MG CAPSULE PO PRN (15:09)
[2022-03-30] MEDS ORDERED: MAGNESIUM HYDROX 2400MG/30ML ORAL SUSPENSION 30 ML CUP PO PRN (15:09)
[2022-03-30] MEDS ORDERED: MAGNESIUM CITRATE 300 ML BOTTLE PO PRN (15:09)
[2022-03-30] MEDS ORDERED: IBUPROFEN 400 MG TABLET (FP) PO PRN (15:09)
[2022-03-30] MEDS ORDERED: ALBUTEROL SO4 HFA INHALER IH PRN (15:11)
[2022-03-30] MEDS ORDERED: DOCUSATE SODIUM 100 MG CAPSULE (FP) PO PRN (15:11)
[2022-03-30] MEDS: MELATONIN 5 MG TABLETS PO SCH (21:22)
[2022-03-30] MEDS: GABAPENTIN 300 MG CAPSULE PO SCH (21:23)
[2022-03-30] MEDS: THIAMINE HCL 100 MG TABLET (FP) PO SCH (21:23)
[2022-03-30] MEDS: ACETAMINOPHEN 325 MG TABLET (FP) PO PRN (21:25)
[2022-03-30] MEDS: BUDESONIDE/FORMETEROL FUMARATE 80/4.5 mcg INHALER IH SCH (21:27)
[2022-03-30] MEDS ORDERED: ZIPRASIDONE 20 MG CAPSULE PO SCH (22:00)
[2022-03-31] MEDS: GABAPENTIN 300 MG CAPSULE PO SCH ×3 (06:32→21:32)
[2022-03-31] MEDS ORDERED: BICTEGRAV/EMTRICIT/TENOFOV (BIKTARVY) 50-200-25 MG TABLET PO SCH (08:00)
[2022-03-31] MEDS: NICOTINE 7 MG/24 HOURS TOPICAL PATCH TD SCH (10:05)
[2022-03-31] MEDS: FAMOTIDINE 20 MG TABLET PO SCH (10:05)
[2022-03-31] MEDS: PRENATAL VITAMINS W/ FOLIC ACID TABLET (FP) PO SCH (10:05)
[2022-03-31] MEDS: BUDESONIDE/FORMETEROL FUMARATE 80/4.5 mcg INHALER IH SCH ×2 (10:06→21:33)
[2022-03-31] MEDS: ACETAMINOPHEN 325 MG TABLET (FP) PO PRN (10:07)
[2022-03-31] MEDS ORDERED: FLUTICASONE IH SCH (11:00)
[2022-03-31] MEDS ORDERED: [UNRECOGNIZED DRUG - OTHER] IH SCH (11:00)
[2022-03-31] MEDS ORDERED: SALMETEROL IH SCH (11:00)
[2022-03-31] MEDS: CALCIUM 500MG/VIT-D 200 UNITS COMBO TABLET (FP) PO SCH (12:20)
[2022-03-31] MEDS: LIDOCAINE 5% TOPICAL PATCH TP SCH (12:20)
[2022-03-31] MEDS: DOLUTEGRAVIR SODIUM 50 MG TABLET (NON-FORMULARY) PO SCH (13:08)
[2022-03-31] MEDS: LIDOCAINE PATCH REMOVAL MC SCH (21:32)
[2022-03-31] MEDS: MELATONIN 5 MG TABLETS PO SCH (21:32)
[2022-03-31] MEDS: THIAMINE HCL 100 MG TABLET (FP) PO SCH (21:32)
[2022-03-31] MEDS: MAG HYDROX/AL HYDROX/SIMETH 30 ML UNIT-DOSE CUP PO PRN (21:36)
[2022-04-01] MEDS: ACETAMINOPHEN 325 MG TABLET (FP) PO PRN ×2 (06:12→10:58)
[2022-04-01] MEDS: GABAPENTIN 300 MG CAPSULE PO SCH ×3 (06:12→21:54)
[2022-04-01] MEDS: ZIPRASIDONE 20 MG CAPSULE PO SCH ×2 (08:11→18:14)
[2022-04-01] MEDS ORDERED: DICLOFENAC SODIUM 25 MG TABLET.DR PO SCH (10:24)
[2022-04-01] MEDS: PRENATAL VITAMINS W/ FOLIC ACID TABLET (FP) PO SCH (10:35)
[2022-04-01] MEDS: CALCIUM 500MG/VIT-D 200 UNITS COMBO TABLET (FP) PO SCH (10:35)
[2022-04-01] MEDS: LIDOCAINE 5% TOPICAL PATCH TP SCH (10:35)
[2022-04-01] MEDS: NICOTINE 7 MG/24 HOURS TOPICAL PATCH TD SCH (10:35)
[2022-04-01] MEDS: FAMOTIDINE 20 MG TABLET PO SCH (10:35)
[2022-04-01] MEDS: BUDESONIDE/FORMETEROL FUMARATE 80/4.5 mcg INHALER IH SCH ×2 (10:36→22:00)
[2022-04-01] MEDS: DOLUTEGRAVIR SODIUM 50 MG TABLET (NON-FORMULARY) PO SCH (10:36)
[2022-04-01] MEDS: NICOTINE 10 MG CARTRIDGE (INHALER) IH PRN (10:37)
[2022-04-01] MEDS: MELATONIN 5 MG TABLETS PO SCH (21:54)
[2022-04-01] MEDS: THIAMINE HCL 100 MG TABLET (FP) PO SCH (21:54)
[2022-04-01] MEDS: DICLOFENAC SODIUM 25 MG TABLET.DR PO SCH (21:56)
[2022-04-01] MEDS: MAG HYDROX/AL HYDROX/SIMETH 30 ML UNIT-DOSE CUP PO PRN (21:59)
[2022-04-01] MEDS: LIDOCAINE PATCH REMOVAL MC SCH (22:00)
[2022-04-02] MEDS: GABAPENTIN 300 MG CAPSULE PO SCH ×3 (06:57→21:51)
[2022-04-02] MEDS: ACETAMINOPHEN 325 MG TABLET (FP) PO PRN (07:00)
[2022-04-02] MEDS ORDERED: ERGOCALCIFEROL (VIT D2) 50,000 UNIT (1.25 MG) CAPSULE PO SCH (10:00)
[2022-04-02] MEDS: FAMOTIDINE 20 MG TABLET PO SCH (10:14)
[2022-04-02] MEDS: BUDESONIDE/FORMETEROL FUMARATE 80/4.5 mcg INHALER IH SCH ×2 (10:14→22:30)
[2022-04-02] MEDS: PRENATAL VITAMINS W/ FOLIC ACID TABLET (FP) PO SCH (10:14)
[2022-04-02] MEDS: ZIPRASIDONE 20 MG CAPSULE PO SCH ×2 (10:14→17:46)
[2022-04-02] MEDS: CALCIUM 500MG/VIT-D 200 UNITS COMBO TABLET (FP) PO SCH (10:15)
[2022-04-02] MEDS: DOLUTEGRAVIR SODIUM 50 MG TABLET (NON-FORMULARY) PO SCH (10:16)
[2022-04-02] MEDS: NICOTINE 7 MG/24 HOURS TOPICAL PATCH TD SCH (10:16)
[2022-04-02] MEDS: LIDOCAINE 5% TOPICAL PATCH TP SCH (10:16)
[2022-04-02] MEDS: DICLOFENAC SODIUM 25 MG TABLET.DR PO SCH ×2 (10:17→21:53)
[2022-04-02] MEDS: NICOTINE 10 MG CARTRIDGE (INHALER) IH PRN (15:02)
[2022-04-02] MEDS: THIAMINE HCL 100 MG TABLET (FP) PO SCH (21:51)
[2022-04-02] MEDS: LIDOCAINE PATCH REMOVAL MC SCH (22:30)
[2022-04-02] MEDS: MELATONIN 5 MG TABLETS PO SCH (22:30)
[2022-04-02] MEDS: MAG HYDROX/AL HYDROX/SIMETH 30 ML UNIT-DOSE CUP PO PRN (22:41)
[2022-04-03] MEDS: ACETAMINOPHEN 325 MG TABLET (FP) PO PRN (06:34)
[2022-04-03] MEDS: GABAPENTIN 300 MG CAPSULE PO SCH ×3 (06:35→21:27)
[2022-04-03] MEDS: FAMOTIDINE 20 MG TABLET PO SCH (10:09)
[2022-04-03] MEDS: PRENATAL VITAMINS W/ FOLIC ACID TABLET (FP) PO SCH (10:09)
[2022-04-03] MEDS: CALCIUM 500MG/VIT-D 200 UNITS COMBO TABLET (FP) PO SCH (10:10)
[2022-04-03] MEDS: NICOTINE 7 MG/24 HOURS TOPICAL PATCH TD SCH (10:11)
[2022-04-03] MEDS: LIDOCAINE 5% TOPICAL PATCH TP SCH (10:11)
[2022-04-03] MEDS: ZIPRASIDONE 20 MG CAPSULE PO SCH ×2 (10:11→21:27)
[2022-04-03] MEDS: DOLUTEGRAVIR SODIUM 50 MG TABLET (NON-FORMULARY) PO SCH (10:13)
[2022-04-03] MEDS: BUDESONIDE/FORMETEROL FUMARATE 80/4.5 mcg INHALER IH SCH ×2 (10:17→21:27)
[2022-04-03] MEDS: DICLOFENAC SODIUM 25 MG TABLET.DR PO SCH ×2 (10:17→21:28)
[2022-04-03] MEDS: LIDOCAINE PATCH REMOVAL MC SCH (21:27)
[2022-04-03] MEDS: THIAMINE HCL 100 MG TABLET (FP) PO SCH (21:27)
[2022-04-03] MEDS: MELATONIN 5 MG TABLETS PO SCH (22:27)
[2022-04-04] MEDS: GABAPENTIN 300 MG CAPSULE PO SCH ×3 (06:53→21:44)
[2022-04-04] MEDS: BUDESONIDE/FORMETEROL FUMARATE 80/4.5 mcg INHALER IH SCH ×2 (10:07→21:44)
[2022-04-04] MEDS: PRENATAL VITAMINS W/ FOLIC ACID TABLET (FP) PO SCH (10:07)
[2022-04-04] MEDS: FAMOTIDINE 20 MG TABLET PO SCH (10:08)
[2022-04-04] MEDS: DOLUTEGRAVIR SODIUM 50 MG TABLET (NON-FORMULARY) PO SCH (10:09)
[2022-04-04] MEDS: CALCIUM 500MG/VIT-D 200 UNITS COMBO TABLET (FP) PO SCH (10:09)
[2022-04-04] MEDS: ZIPRASIDONE 20 MG CAPSULE PO SCH ×2 (10:10→17:30)
[2022-04-04] MEDS: NICOTINE 7 MG/24 HOURS TOPICAL PATCH TD SCH (10:10)
[2022-04-04] MEDS: LIDOCAINE 5% TOPICAL PATCH TP SCH (10:10)
[2022-04-04] MEDS: NICOTINE 10 MG CARTRIDGE (INHALER) IH PRN (10:10)
[2022-04-04] MEDS: DICLOFENAC SODIUM 25 MG TABLET.DR PO SCH ×2 (10:11→22:12)
[2022-04-04] MEDS: ACETAMINOPHEN 325 MG TABLET (FP) PO PRN ×2 (10:12→21:46)
[2022-04-04] MEDS: MELATONIN 5 MG TABLETS PO SCH (21:43)
[2022-04-04] MEDS: LIDOCAINE PATCH REMOVAL MC SCH (21:43)
[2022-04-04] MEDS: THIAMINE HCL 100 MG TABLET (FP) PO SCH (21:44)
[2022-04-05] MEDS: GABAPENTIN 300 MG CAPSULE PO SCH (06:26)
[2022-04-05] MEDS: MAG HYDROX/AL HYDROX/SIMETH 30 ML UNIT-DOSE CUP PO PRN (06:28)
[2022-04-05] MEDS: ZIPRASIDONE 20 MG CAPSULE PO SCH (07:01)
[2022-04-05 07:18] VITALS: BP 131/93; PULSE 87; TEMP 96.9
[2022-04-05] MEDS: PRENATAL VITAMINS W/ FOLIC ACID TABLET (FP) PO SCH (09:37)
[2022-04-05] MEDS: FAMOTIDINE 20 MG TABLET PO SCH (09:39)
[2022-04-05] MEDS: BUDESONIDE/FORMETEROL FUMARATE 80/4.5 mcg INHALER IH SCH (09:40)
[2022-04-05] MEDS: CALCIUM 500MG/VIT-D 200 UNITS COMBO TABLET (FP) PO SCH (09:40)
[2022-04-05] MEDS: DOLUTEGRAVIR SODIUM 50 MG TABLET (NON-FORMULARY) PO SCH (09:40)
[2022-04-05] MEDS: NICOTINE 7 MG/24 HOURS TOPICAL PATCH TD SCH (09:41)
[2022-04-05] MEDS: LIDOCAINE 5% TOPICAL PATCH TP SCH (09:41)
[2022-04-05] MEDS: DICLOFENAC SODIUM 25 MG TABLET.DR PO SCH (09:41)
== END 2022-04-05 10:00 | disposition home or self-care (01) | DRG 772 ==
LOC: YASAS 14:05 → Y5N 14:06
PROVIDERS: ADMIT Allergy & Immunology; ATTEND Psychiatry & Neurology Pain Medicine
PROC: HZ42ZZZ Group Counseling for Substance Abuse Treatment, Cognitive-Behavioral (ICD-10-PCS; principal; 2022-03-30)
DX: F10.20 Alcohol dependence, uncomplicated (principal); F14.20 Cocaine dependence, uncomplicated; F12.20 Cannabis dependence, uncomplicated; F17.210 Nicotine dependence, cigarettes, uncomplicated; F20.9 Schizophrenia, unspecified; F31.9 Bipolar disorder, unspecified; B20 Human immunodeficiency virus [HIV] disease; J43.9 Emphysema, unspecified; G47.00 Insomnia, unspecified; G62.9 Polyneuropathy, unspecified; Z86.19 Personal history of other infectious and parasitic diseases; Z99.89 Dependence on other enabling machines and devices; Z88.8 Allergy status to other drugs, medicaments and biological substances; Z91.014 Allergy to mammalian meats
CPT/HCPCS: 93005; 93010

== ENCOUNTER 2022-06-30 12:20 | Inpatient (IN) | payer OTHER ==
[2022-06-30 13:34] VITALS: BMI 20.4
[2022-06-30] MEDS ORDERED: MAGNESIUM CITRATE 300 ML BOTTLE PO PRN (13:49)
[2022-06-30] MEDS ORDERED: MAGNESIUM HYDROX 2400MG/30ML ORAL SUSPENSION 30 ML CUP PO PRN (13:49)
[2022-06-30] MEDS ORDERED: LOPERAMIDE HCL 2 MG CAPSULE PO PRN (13:49)
[2022-06-30] MEDS ORDERED: BENZOCAINE/MENTHOL (CHLORASEPTIC ) LOZENGE MM PRN (13:49)
[2022-06-30] MEDS ORDERED: MAG HYDROX/AL HYDROX/SIMETH 30 ML UNIT-DOSE CUP PO PRN (13:49)
[2022-06-30] MEDS ORDERED: IBUPROFEN 600 MG TABLET (FP) PO PRN (13:49)
[2022-06-30] MEDS ORDERED: ONDANSETRON *ODT* 4 MG TABLET SL PRN (13:49)
[2022-06-30] MEDS ORDERED: BISMUTH SUBSALICYLATE 524 MG/30 ML PO PRN (13:49)
[2022-06-30] MEDS ORDERED: IBUPROFEN 400 MG TABLET (FP) PO PRN (13:49)
[2022-06-30] MEDS ORDERED: DICYCLOMINE HCL 10 MG CAPSULE PO PRN (13:49)
[2022-06-30] MEDS ORDERED: diazePAM 5 MG TABLET PO PRN (13:49)
[2022-06-30] MEDS ORDERED: NICOTINE 10 MG CARTRIDGE (INHALER) IH PRN (13:49)
[2022-06-30] MEDS ORDERED: ACETAMINOPHEN 325 MG TABLET (FP) PO PRN (13:49)
[2022-06-30] MEDS ORDERED: ALBUTEROL SO4 HFA INHALER IH PRN (13:52)
[2022-06-30] MEDS ORDERED: DOCUSATE SODIUM 100 MG CAPSULE (FP) PO PRN (13:52)
[2022-06-30] MEDS: PRENATAL VITAMINS W/ FOLIC ACID TABLET (FP) PO SCH (15:16)
[2022-06-30] MEDS: hydrOXYzine PAMOATE 25 MG CAPSULE (FP) PO SCH ×3 (15:16→22:49)
[2022-06-30] MEDS: NICOTINE 7 MG/24 HOURS TOPICAL PATCH TD SCH (15:24)
[2022-06-30 15:46] LABS: HEMATOCRIT 35.8 % (32.4-45.2); HEMOGLOBIN 12.2 GM/dL (10.7-15.3); MCH 33.3 pg (25.7-33.7); MCHC 34.1 g/dl (32.0-36.0); MEAN CELL VOLUME 97.8 fl (80-96); MEAN PLT VOLUME 7.7 fl (7.5-11.1); PLATELET COUNT 403 10^3/uL (134-434); RBC 3.66 M/mm3 (3.60-5.2); RDW 13.9 % (11.6-15.6); WHITE BLOOD COUNT 19.8 K/mm3 (4.0-10.0)
[2022-06-30 16:16] LABS: ALBUMIN 4.1 g/dl (3.4-5.0); BLOOD UREA NITROGEN 20.1 mg/dL (7-18); CALCIUM 9.6 mg/dL (8.5-10.1)
[2022-06-30 16:20] LABS: TOT PROT 8.2 g/dl (6.4-8.2)
[2022-06-30] MEDS: diazePAM 5 MG TABLET PO SCH ×2 (17:45→23:11)
[2022-06-30] MEDS: METHOCARBAMOL 500 MG TABLET PO PRN ×2 (17:45→22:50)
[2022-06-30] MEDS: MELATONIN 5 MG TABLETS PO SCH (22:48)
[2022-06-30] MEDS: ARTIFICIAL TEARS (POLYVINYL ALCOHOL) OPTH DROPS OD SCH (22:48)
[2022-06-30] MEDS: THIAMINE HCL 100 MG TABLET (FP) PO SCH (22:48)
[2022-06-30] MEDS: ZIPRASIDONE 20 MG CAPSULE PO SCH (23:10)
[2022-06-30] MEDS: SENNOSIDES 8.6MG TABLET (FP) PO SCH (23:10)
[2022-07-01] MEDS: diazePAM 5 MG TABLET PO SCH ×5 (06:17→22:54)
[2022-07-01] MEDS: hydrOXYzine PAMOATE 25 MG CAPSULE (FP) PO SCH ×5 (06:18→22:53)
[2022-07-01] MEDS ORDERED: PATIENT'S OWN MEDICATION (NON-FORMULARY) (Meloxicam [Mobic] 15 MG Tablet) PO SCH (10:00)
[2022-07-01] MEDS ORDERED: ERGOCALCIFEROL (VIT D2) 50,000 UNIT (1.25 MG) CAPSULE PO SCH (10:00)
[2022-07-01] MEDS ORDERED: PATIENT'S OWN MEDICATION (NON-FORMULARY) (Dolutegravir Sodium/Lamivudine [Dovato 50-300 Mg PO SCH (10:00)
[2022-07-01] MEDS: NICOTINE 7 MG/24 HOURS TOPICAL PATCH TD SCH (10:54)
[2022-07-01] MEDS: COLLOIDAL OATMEAL 1 BAR EACH TP PRN (10:56)
[2022-07-01] MEDS: PANTOPRAZOLE 20 MG TABLET PO SCH (10:58)
[2022-07-01] MEDS: CALCIUM 500MG/VIT-D 200 UNITS COMBO TABLET (FP) PO SCH (10:58)
[2022-07-01] MEDS: METHOCARBAMOL 500 MG TABLET PO PRN (11:00)
[2022-07-01] MEDS: BUDESONIDE/FORMETEROL FUMARATE 80/4.5 mcg INHALER IH SCH (11:00)
[2022-07-01] MEDS: PRENATAL VITAMINS W/ FOLIC ACID TABLET (FP) PO SCH (11:17)
[2022-07-01] MEDS: DOLUTEGRAVIR SODIUM 50 MG TABLET (NON-FORMULARY) PO SCH (11:17)
[2022-07-01] MEDS: ZIPRASIDONE 20 MG CAPSULE PO SCH (11:18)
[2022-07-01] MEDS: ARTIFICIAL TEARS (POLYVINYL ALCOHOL) OPTH DROPS OD SCH (11:21)
[2022-07-01] MEDS: GABAPENTIN 300 MG CAPSULE PO SCH ×2 (13:37→22:54)
[2022-07-01] MEDS: THIAMINE HCL 100 MG TABLET (FP) PO SCH (22:53)
[2022-07-01] MEDS: SENNOSIDES 8.6MG TABLET (FP) PO SCH (22:54)
[2022-07-01] MEDS: MELATONIN 5 MG TABLETS PO SCH (22:54)
[2022-07-02] MEDS: ARTIFICIAL TEARS (POLYVINYL ALCOHOL) OPTH DROPS OD SCH ×2 (00:23→12:19)
[2022-07-02] MEDS: hydrOXYzine PAMOATE 25 MG CAPSULE (FP) PO SCH ×3 (06:09→13:24)
[2022-07-02] MEDS: diazePAM 5 MG TABLET PO SCH ×2 (06:09→13:22)
[2022-07-02] MEDS: GABAPENTIN 300 MG CAPSULE PO SCH ×2 (06:09→13:22)
[2022-07-02] MEDS: ACETAMINOPHEN 325 MG TABLET (FP) PO PRN (06:11)
[2022-07-02] MEDS: METHOCARBAMOL 500 MG TABLET PO PRN ×2 (06:16→13:22)
[2022-07-02 11:13] LABS: BASO % 0.8 % (0-2.0); EOS % 2.4 % (0-4.5); HEMATOCRIT 35.3 % (32.4-45.2); HEMOGLOBIN 11.6 GM/dL (10.7-15.3); LYMPH % 31.9 % (8-40); MCH 32.6 pg (25.7-33.7); MCHC 32.9 g/dl (32.0-36.0); MEAN CELL VOLUME 98.9 fl (80-96); MONO % 9.6 % (3.8-10.2); NEUT % 55.3 % (42.8-82.8); PLATELET COUNT 361 10^3/uL (134-434); RBC 3.57 M/mm3 (3.60-5.2); RDW 13.8 % (11.6-15.6)
[2022-07-02] MEDS: NICOTINE 7 MG/24 HOURS TOPICAL PATCH TD SCH (11:54)
[2022-07-02] MEDS: CALCIUM 500MG/VIT-D 200 UNITS COMBO TABLET (FP) PO SCH (12:18)
[2022-07-02] MEDS: BUDESONIDE/FORMETEROL FUMARATE 80/4.5 mcg INHALER IH SCH (12:18)
[2022-07-02] MEDS: PANTOPRAZOLE 20 MG TABLET PO SCH (12:18)
[2022-07-02] MEDS: PRENATAL VITAMINS W/ FOLIC ACID TABLET (FP) PO SCH (12:18)
[2022-07-02] MEDS: DOLUTEGRAVIR SODIUM 50 MG TABLET (NON-FORMULARY) PO SCH (12:20)
[2022-07-03] MEDS: hydrOXYzine PAMOATE 25 MG CAPSULE (FP) PO SCH ×7 (00:34→23:12)
[2022-07-03] MEDS: ARTIFICIAL TEARS (POLYVINYL ALCOHOL) OPTH DROPS OD SCH ×3 (00:35→23:11)
[2022-07-03] MEDS: MELATONIN 5 MG TABLETS PO SCH ×2 (00:35→23:11)
[2022-07-03] MEDS: SENNOSIDES 8.6MG TABLET (FP) PO SCH ×2 (00:37→23:12)
[2022-07-03] MEDS: GABAPENTIN 300 MG CAPSULE PO SCH ×4 (00:37→23:12)
[2022-07-03] MEDS: diazePAM 5 MG TABLET PO SCH ×3 (00:38→17:58)
[2022-07-03] MEDS: THIAMINE HCL 100 MG TABLET (FP) PO SCH ×2 (00:38→23:12)
[2022-07-03] MEDS: ACETAMINOPHEN 325 MG TABLET (FP) PO PRN (00:39)
[2022-07-03] MEDS: DOLUTEGRAVIR SODIUM 50 MG TABLET (NON-FORMULARY) PO SCH (07:02)
[2022-07-03] MEDS: NICOTINE 7 MG/24 HOURS TOPICAL PATCH TD SCH (10:30)
[2022-07-03] MEDS: PRENATAL VITAMINS W/ FOLIC ACID TABLET (FP) PO SCH (10:30)
[2022-07-03] MEDS: CALCIUM 500MG/VIT-D 200 UNITS COMBO TABLET (FP) PO SCH (10:30)
[2022-07-03] MEDS: PANTOPRAZOLE 20 MG TABLET PO SCH (10:30)
[2022-07-03] MEDS: BUDESONIDE/FORMETEROL FUMARATE 80/4.5 mcg INHALER IH SCH (10:31)
[2022-07-03] MEDS: METHOCARBAMOL 500 MG TABLET PO PRN (17:59)
[2022-07-04] MEDS ORDERED: diazePAM 5 MG TABLET PO ONE (06:00)
[2022-07-04] MEDS: GABAPENTIN 300 MG CAPSULE PO SCH (07:01)
[2022-07-04] MEDS: hydrOXYzine PAMOATE 25 MG CAPSULE (FP) PO SCH ×2 (07:01→09:37)
[2022-07-04] MEDS: DOLUTEGRAVIR SODIUM 50 MG TABLET (NON-FORMULARY) PO SCH (07:02)
[2022-07-04 09:31] VITALS: BP 122/82; PULSE 91; RESP 17; TEMP 98.1
[2022-07-04] MEDS: CALCIUM 500MG/VIT-D 200 UNITS COMBO TABLET (FP) PO SCH (09:36)
[2022-07-04] MEDS: COLLOIDAL OATMEAL 1 BAR EACH TP PRN (09:36)
[2022-07-04] MEDS: PANTOPRAZOLE 20 MG TABLET PO SCH (09:36)
[2022-07-04] MEDS: PRENATAL VITAMINS W/ FOLIC ACID TABLET (FP) PO SCH (09:36)
[2022-07-04] MEDS: BUDESONIDE/FORMETEROL FUMARATE 80/4.5 mcg INHALER IH SCH (09:36)
[2022-07-04] MEDS: NICOTINE 7 MG/24 HOURS TOPICAL PATCH TD SCH (09:38)
[2022-07-04] MEDS: ARTIFICIAL TEARS (POLYVINYL ALCOHOL) OPTH DROPS OD SCH (09:38)
== END 2022-07-04 10:49 | disposition home or self-care (01) | DRG 774 ==
LOC: YASAS 12:20 → Y6N 14:11
PROVIDERS: ADMIT Allergy & Immunology; ATTEND Surgery
PROC: HZ2ZZZZ Detoxification Services for Substance Abuse Treatment (ICD-10-PCS; principal; 2022-06-30)
DX: F10.230 Alcohol dependence with withdrawal, uncomplicated (principal); F14.20 Cocaine dependence, uncomplicated; F17.210 Nicotine dependence, cigarettes, uncomplicated; F25.9 Schizoaffective disorder, unspecified; B20 Human immunodeficiency virus [HIV] disease; J45.20 Mild intermittent asthma, uncomplicated; J43.9 Emphysema, unspecified; M16.0 Bilateral primary osteoarthritis of hip; K21.9 Gastro-esophageal reflux disease without esophagitis; G47.00 Insomnia, unspecified; R26.2 Difficulty in walking, not elsewhere classified; Z99.89 Dependence on other enabling machines and devices; Z88.8 Allergy status to other drugs, medicaments and biological substances; Z91.018 Allergy to other foods; Z86.19 Personal history of other infectious and parasitic diseases; Z86.16 Personal history of COVID-19
CPT/HCPCS: 36415; 80053; 82962; 85025; 85027; 86593; 86780; C9803-CS; U0003; U0005

== ENCOUNTER 2023-04-19 16:17 | Inpatient (IN) | payer OTHER ==
[2023-04-19 18:33] VITALS: BMI 18.8
[2023-04-19] MEDS ORDERED: LOPERAMIDE HCL 2 MG CAPSULE PO PRN (21:07)
[2023-04-19] MEDS ORDERED: POLYETHYLENE GLYCOL (HEALTHYLAX) 3350 17 GM PACKET PO PRN (21:07)
[2023-04-19] MEDS ORDERED: P-EPHED 60MG/TRIPROLIDI 2.5MG TABLET PO PRN (21:07)
[2023-04-19] MEDS ORDERED: ACETAMINOPHEN 325 MG TABLET (FP) PO PRN (21:07)
[2023-04-19] MEDS ORDERED: BENZOCAINE/MENTHOL (CHLORASEPTIC ) LOZENGE MM PRN (21:07)
[2023-04-19] MEDS ORDERED: guaiFENesin 600 MG TABLET.ER (FP) PO PRN (21:07)
[2023-04-19] MEDS ORDERED: BENZONATATE 200 MG CAPSULE PO PRN (21:07)
[2023-04-19] MEDS ORDERED: MAGNESIUM HYDROX 2400MG/30ML ORAL SUSPENSION 30 ML CUP PO PRN (21:07)
[2023-04-19] MEDS: THIAMINE HCL 100 MG TABLET (FP) PO SCH (21:52)
[2023-04-19] MEDS: IBUPROFEN 600 MG TABLET (FP) PO PRN (21:52)
[2023-04-19] MEDS ORDERED: MELATONIN 5 MG TABLETS PO SCH (22:00)
[2023-04-20] MEDS: IBUPROFEN 600 MG TABLET (FP) PO PRN ×2 (07:15→11:38)
[2023-04-20] MEDS ORDERED: PATIENT'S OWN MEDICATION (NON-FORMULARY) (Dolutegravir Sodium/Lamivudine [Dovato 50-300 Mg PO SCH (11:15)
[2023-04-20 11:27] LABS: HEMOGLOBIN 10.9 GM/dL (10.7-15.3); MCH 32.3 pg (25.7-33.7); MEAN CELL VOLUME 97.7 fl (80-96); MEAN PLT VOLUME 8.3 fl (7.5-11.1); PLATELET COUNT 301 10^3/uL (134-434); RBC 3.38 M/mm3 (3.60-5.2); RDW 14.2 % (11.6-15.6)
[2023-04-20 11:31] LABS: POTASSIUM 3.7 mmol/L (3.5-5.1)
[2023-04-20 11:33] LABS: ALBUMIN 3.3 g/dl (3.4-5.0); CALCIUM 9.2 mg/dL (8.5-10.1)
[2023-04-20 11:34] LABS: BLOOD UREA NITROGEN 16.4 mg/dL (7-18)
[2023-04-20 11:36] LABS: CREATININE 0.7 mg/dL (0.55-1.3)
[2023-04-20 11:38] LABS: BILIRUBIN,TOTAL 0.2 mg/dL (0.2-1); TOT PROT 6.3 g/dl (6.4-8.2)
[2023-04-20] MEDS: PRENATAL VITAMINS W/ FOLIC ACID TABLET (FP) PO SCH (12:49)
[2023-04-20] MEDS: GABAPENTIN 300 MG CAPSULE PO SCH ×2 (13:14→21:48)
[2023-04-20] MEDS: DOLUTEGRAVIR SODIUM 50 MG TABLET (NON-FORMULARY) PO SCH (13:14)
[2023-04-20] MEDS: THIAMINE HCL 100 MG TABLET (FP) PO SCH (21:48)
[2023-04-20] MEDS: BENZTROPINE MESYLATE 1 MG TABLET PO SCH (21:48)
[2023-04-20] MEDS: ZIPRASIDONE 20 MG CAPSULE PO SCH (21:48)
[2023-04-20] MEDS: SUVOREXANT 10 MG TABLET PO PRN (22:01)
[2023-04-20 22:05] LABS: PH,URINE 5.5 (5.0-8.0); URINE APPEARANCE CLEAR; URINE BILIRUBIN NEGATIVE (NEGATIVE); URINE COLOR YELLOW; URINE GLUCOSE (UA) NEGATIVE (NEGATIVE); URINE KETONE NEGATIVE (NEGATIVE); URINE LEUK ESTERASE NEGATIVE (NEGATIVE); URINE NITRITE NEGATIVE (NEGATIVE); URINE PROTEIN NEGATIVE (NEGATIVE); URINE UROBILINOGEN 0.2 mg/dL (0.2-1.0)
[2023-04-21] MEDS: GABAPENTIN 300 MG CAPSULE PO SCH ×3 (07:17→21:37)
[2023-04-21] MEDS: DOLUTEGRAVIR SODIUM 50 MG TABLET (NON-FORMULARY) PO SCH (07:18)
[2023-04-21] MEDS: PRENATAL VITAMINS W/ FOLIC ACID TABLET (FP) PO SCH (10:39)
[2023-04-21] MEDS: BENZTROPINE MESYLATE 1 MG TABLET PO SCH ×2 (10:39→21:36)
[2023-04-21] MEDS: ZIPRASIDONE 20 MG CAPSULE PO SCH ×2 (10:40→21:36)
[2023-04-21] MEDS: COLLOIDAL OATMEAL 1 BAR EACH TP PRN (21:36)
[2023-04-21] MEDS: THIAMINE HCL 100 MG TABLET (FP) PO SCH (21:37)
[2023-04-21] MEDS: IBUPROFEN 600 MG TABLET (FP) PO PRN (21:37)
[2023-04-22] MEDS: GABAPENTIN 300 MG CAPSULE PO SCH ×3 (06:33→21:24)
[2023-04-22] MEDS: DOLUTEGRAVIR SODIUM 50 MG TABLET (NON-FORMULARY) PO SCH (07:38)
[2023-04-22] MEDS: PRENATAL VITAMINS W/ FOLIC ACID TABLET (FP) PO SCH (10:25)
[2023-04-22] MEDS: BENZTROPINE MESYLATE 1 MG TABLET PO SCH ×2 (10:25→21:24)
[2023-04-22] MEDS ORDERED: NICOTINE POLACRILEX 2 MG GUM BUC PRN (11:17)
[2023-04-22] MEDS ORDERED: ALBUTEROL SO4 HFA INHALER IH PRN (11:18)
[2023-04-22] MEDS: NICOTINE 10 MG CARTRIDGE (INHALER) IH PRN (15:59)
[2023-04-22] MEDS: THIAMINE HCL 100 MG TABLET (FP) PO SCH (21:24)
[2023-04-22] MEDS: SUVOREXANT 10 MG TABLET PO PRN (21:25)
[2023-04-23] MEDS: GABAPENTIN 300 MG CAPSULE PO SCH ×3 (06:47→21:29)
[2023-04-23] MEDS: DOLUTEGRAVIR SODIUM 50 MG TABLET (NON-FORMULARY) PO SCH (07:20)
[2023-04-23] MEDS: BENZTROPINE MESYLATE 1 MG TABLET PO SCH ×2 (10:07→21:29)
[2023-04-23] MEDS: PRENATAL VITAMINS W/ FOLIC ACID TABLET (FP) PO SCH (10:07)
[2023-04-23] MEDS: IBUPROFEN 600 MG TABLET (FP) PO PRN ×2 (10:09→19:09)
[2023-04-23] MEDS: ACETAMINOPHEN 325 MG TABLET (FP) PO PRN ×2 (14:34→21:44)
[2023-04-23] MEDS: SUVOREXANT 10 MG TABLET PO PRN (21:28)
[2023-04-23] MEDS: THIAMINE HCL 100 MG TABLET (FP) PO SCH (21:29)
[2023-04-24] MEDS: IBUPROFEN 600 MG TABLET (FP) PO PRN ×5 (00:46→22:19)
[2023-04-24] MEDS: GABAPENTIN 300 MG CAPSULE PO SCH ×3 (06:34→21:24)
[2023-04-24] MEDS: DOLUTEGRAVIR SODIUM 50 MG TABLET (NON-FORMULARY) PO SCH (07:43)
[2023-04-24] MEDS: BENZTROPINE MESYLATE 1 MG TABLET PO SCH ×2 (10:21→21:24)
[2023-04-24] MEDS: PRENATAL VITAMINS W/ FOLIC ACID TABLET (FP) PO SCH (10:21)
[2023-04-24] MEDS: ERGOCALCIFEROL (VIT D2) 50,000 UNIT (1.25 MG) CAPSULE PO SCH (10:22)
[2023-04-24] MEDS: ACETAMINOPHEN 325 MG TABLET (FP) PO PRN (14:17)
[2023-04-24] MEDS: BENZOCAINE 20 % GEL TUBE MM PRN (17:53)
[2023-04-24] MEDS: THIAMINE HCL 100 MG TABLET (FP) PO SCH (21:24)
[2023-04-24] MEDS: hydrOXYzine PAMOATE 25 MG CAPSULE (FP) PO PRN (21:29)
[2023-04-24] MEDS ORDERED: SUVOREXANT 10 MG TABLET PO PRN (22:00)
[2023-04-25] MEDS: GABAPENTIN 300 MG CAPSULE PO SCH ×3 (06:41→21:50)
[2023-04-25] MEDS: ACETAMINOPHEN 325 MG TABLET (FP) PO PRN (06:42)
[2023-04-25] MEDS: BENZOCAINE 20 % GEL TUBE MM PRN ×2 (06:44→21:56)
[2023-04-25] MEDS: DOLUTEGRAVIR SODIUM 50 MG TABLET (NON-FORMULARY) PO SCH (07:10)
[2023-04-25] MEDS: IBUPROFEN 400 MG TABLET (FP) PO PRN ×3 (10:16→21:50)
[2023-04-25] MEDS: BENZTROPINE MESYLATE 1 MG TABLET PO SCH ×2 (10:16→21:52)
[2023-04-25] MEDS: PRENATAL VITAMINS W/ FOLIC ACID TABLET (FP) PO SCH (10:17)
[2023-04-25] MEDS: AMOX TR/POT CLAV 500MG/125MG TABLETS (FP) PO SCH (16:37)
[2023-04-25] MEDS: THIAMINE HCL 100 MG TABLET (FP) PO SCH (21:50)
[2023-04-25] MEDS: hydrOXYzine PAMOATE 25 MG CAPSULE (FP) PO PRN (21:50)
[2023-04-26] MEDS: GABAPENTIN 300 MG CAPSULE PO SCH ×4 (06:01→22:02)
[2023-04-26] MEDS: IBUPROFEN 400 MG TABLET (FP) PO PRN (06:03)
[2023-04-26] MEDS: DOLUTEGRAVIR SODIUM 50 MG TABLET (NON-FORMULARY) PO SCH (07:04)
[2023-04-26] MEDS: AMOX TR/POT CLAV 500MG/125MG TABLETS (FP) PO SCH ×2 (07:04→17:23)
[2023-04-26] MEDS: PRENATAL VITAMINS W/ FOLIC ACID TABLET (FP) PO SCH (09:49)
[2023-04-26] MEDS: BENZTROPINE MESYLATE 1 MG TABLET PO SCH ×3 (09:49→22:03)
[2023-04-26] MEDS: ACETAMINOPHEN 325 MG TABLET (FP) PO PRN ×3 (09:49→22:03)
[2023-04-26] MEDS: NICOTINE 10 MG CARTRIDGE (INHALER) IH PRN (09:50)
[2023-04-26] MEDS: AMMONIUM LACTATE 12% LOTION 225 GM BOTTLE TP PRN (09:52)
[2023-04-26] MEDS: IBUPROFEN 600 MG TABLET (FP) PO PRN (13:39)
[2023-04-26] MEDS: THIAMINE HCL 100 MG TABLET (FP) PO SCH ×2 (21:25→22:02)
[2023-04-27] MEDS: AMOX TR/POT CLAV 500MG/125MG TABLETS (FP) PO SCH ×2 (07:27→17:42)
[2023-04-27] MEDS: GABAPENTIN 300 MG CAPSULE PO SCH ×3 (07:27→21:31)
[2023-04-27] MEDS: DOLUTEGRAVIR SODIUM 50 MG TABLET (NON-FORMULARY) PO SCH (07:28)
[2023-04-27] MEDS: ACETAMINOPHEN 325 MG TABLET (FP) PO PRN (07:30)
[2023-04-27] MEDS: PRENATAL VITAMINS W/ FOLIC ACID TABLET (FP) PO SCH (09:43)
[2023-04-27] MEDS: BENZTROPINE MESYLATE 1 MG TABLET PO SCH ×2 (09:43→21:31)
[2023-04-27] MEDS: IBUPROFEN 600 MG TABLET (FP) PO PRN ×2 (14:27→21:32)
[2023-04-27] MEDS: THIAMINE HCL 100 MG TABLET (FP) PO SCH (21:31)
[2023-04-27] MEDS: hydrOXYzine PAMOATE 25 MG CAPSULE (FP) PO PRN (21:36)
[2023-04-27] MEDS: SUVOREXANT 15 MG TABLET PO PRN (21:36)
[2023-04-27] MEDS: BENZOCAINE 20 % GEL TUBE MM PRN (21:37)
[2023-04-28] MEDS: GABAPENTIN 300 MG CAPSULE PO SCH ×3 (06:39→21:25)
[2023-04-28] MEDS: ACETAMINOPHEN 325 MG TABLET (FP) PO PRN ×2 (06:40→21:25)
[2023-04-28] MEDS: DOLUTEGRAVIR SODIUM 50 MG TABLET (NON-FORMULARY) PO SCH (07:10)
[2023-04-28] MEDS: AMOX TR/POT CLAV 500MG/125MG TABLETS (FP) PO SCH ×2 (07:10→17:32)
[2023-04-28] MEDS: BENZTROPINE MESYLATE 1 MG TABLET PO SCH ×2 (09:55→21:25)
[2023-04-28] MEDS: PRENATAL VITAMINS W/ FOLIC ACID TABLET (FP) PO SCH (09:56)
[2023-04-28] MEDS: BUDESONIDE/FORMETEROL FUMARATE 160/4.5 mcg INHALER IH SCH ×2 (12:21→21:27)
[2023-04-28] MEDS: IBUPROFEN 600 MG TABLET (FP) PO PRN (20:51)
[2023-04-28] MEDS: THIAMINE HCL 100 MG TABLET (FP) PO SCH (21:25)
[2023-04-29] MEDS: GABAPENTIN 300 MG CAPSULE PO SCH ×3 (06:46→21:19)
[2023-04-29] MEDS: DOLUTEGRAVIR SODIUM 50 MG TABLET (NON-FORMULARY) PO SCH (07:07)
[2023-04-29] MEDS: AMOX TR/POT CLAV 500MG/125MG TABLETS (FP) PO SCH ×2 (07:07→16:54)
[2023-04-29] MEDS: IBUPROFEN 400 MG TABLET (FP) PO PRN (07:25)
[2023-04-29] MEDS: BENZTROPINE MESYLATE 1 MG TABLET PO SCH ×2 (10:19→21:20)
[2023-04-29] MEDS: BUDESONIDE/FORMETEROL FUMARATE 160/4.5 mcg INHALER IH SCH ×2 (10:19→21:19)
[2023-04-29] MEDS: PRENATAL VITAMINS W/ FOLIC ACID TABLET (FP) PO SCH (10:20)
[2023-04-29] MEDS: THIAMINE HCL 100 MG TABLET (FP) PO SCH (21:19)
[2023-04-29] MEDS: SUVOREXANT 15 MG TABLET PO PRN (21:20)
[2023-04-29] MEDS: ACETAMINOPHEN 325 MG TABLET (FP) PO PRN (21:21)
[2023-04-29] MEDS: METHOCARBAMOL 500 MG TABLET PO PRN (22:21)
[2023-04-30] MEDS: GABAPENTIN 300 MG CAPSULE PO SCH ×3 (06:23→21:09)
[2023-04-30] MEDS: ACETAMINOPHEN 325 MG TABLET (FP) PO PRN (06:25)
[2023-04-30] MEDS: AMOX TR/POT CLAV 500MG/125MG TABLETS (FP) PO SCH ×2 (07:22→17:32)
[2023-04-30] MEDS: DOLUTEGRAVIR SODIUM 50 MG TABLET (NON-FORMULARY) PO SCH (07:23)
[2023-04-30] MEDS ORDERED: SUVOREXANT 15 MG TABLET PO PRN (09:06)
[2023-04-30] MEDS: PRENATAL VITAMINS W/ FOLIC ACID TABLET (FP) PO SCH (10:06)
[2023-04-30] MEDS: BUDESONIDE/FORMETEROL FUMARATE 160/4.5 mcg INHALER IH SCH ×2 (10:06→21:10)
[2023-04-30] MEDS: BENZTROPINE MESYLATE 1 MG TABLET PO SCH ×2 (10:06→21:10)
[2023-04-30] MEDS: IBUPROFEN 600 MG TABLET (FP) PO PRN (10:56)
[2023-04-30] MEDS: THIAMINE HCL 100 MG TABLET (FP) PO SCH (21:09)
[2023-04-30] MEDS: SUVOREXANT 20 MG TABLET PO PRN (21:10)
[2023-04-30] MEDS: METHOCARBAMOL 500 MG TABLET PO PRN (21:10)
[2023-05-01] MEDS: GABAPENTIN 300 MG CAPSULE PO SCH ×3 (06:17→21:04)
[2023-05-01] MEDS: ACETAMINOPHEN 325 MG TABLET (FP) PO PRN ×2 (06:19→21:07)
[2023-05-01] MEDS: AMOX TR/POT CLAV 500MG/125MG TABLETS (FP) PO SCH ×2 (07:09→16:54)
[2023-05-01] MEDS: DOLUTEGRAVIR SODIUM 50 MG TABLET (NON-FORMULARY) PO SCH (07:09)
[2023-05-01] MEDS: BUDESONIDE/FORMETEROL FUMARATE 160/4.5 mcg INHALER IH SCH ×2 (09:30→21:04)
[2023-05-01] MEDS: ERGOCALCIFEROL (VIT D2) 50,000 UNIT (1.25 MG) CAPSULE PO SCH (09:30)
[2023-05-01] MEDS: PRENATAL VITAMINS W/ FOLIC ACID TABLET (FP) PO SCH (09:31)
[2023-05-01] MEDS: BENZTROPINE MESYLATE 1 MG TABLET PO SCH ×2 (09:31→21:04)
[2023-05-01] MEDS: IBUPROFEN 600 MG TABLET (FP) PO PRN ×2 (13:14→16:55)
[2023-05-01] MEDS: THIAMINE HCL 100 MG TABLET (FP) PO SCH (21:04)
[2023-05-01] MEDS: SUVOREXANT 20 MG TABLET PO PRN (21:05)
[2023-05-01] MEDS: MAG HYDROX/AL HYDROX/SIMETH 30 ML UNIT-DOSE CUP PO PRN (21:06)
[2023-05-02] MEDS: GABAPENTIN 300 MG CAPSULE PO SCH ×3 (06:24→21:29)
[2023-05-02] MEDS: IBUPROFEN 600 MG TABLET (FP) PO PRN ×2 (06:25→21:30)
[2023-05-02] MEDS: AMOX TR/POT CLAV 500MG/125MG TABLETS (FP) PO SCH (07:11)
[2023-05-02] MEDS: DOLUTEGRAVIR SODIUM 50 MG TABLET (NON-FORMULARY) PO SCH (07:11)
[2023-05-02] MEDS: BENZTROPINE MESYLATE 1 MG TABLET PO SCH ×2 (09:48→21:29)
[2023-05-02] MEDS: BUDESONIDE/FORMETEROL FUMARATE 160/4.5 mcg INHALER IH SCH ×2 (09:48→21:29)
[2023-05-02] MEDS: PRENATAL VITAMINS W/ FOLIC ACID TABLET (FP) PO SCH (09:48)
[2023-05-02] MEDS: MAG HYDROX/AL HYDROX/SIMETH 30 ML UNIT-DOSE CUP PO PRN (16:11)
[2023-05-02] MEDS: ACETAMINOPHEN 325 MG TABLET (FP) PO PRN (16:22)
[2023-05-02] MEDS: THIAMINE HCL 100 MG TABLET (FP) PO SCH (21:29)
[2023-05-02] MEDS: SUVOREXANT 20 MG TABLET PO PRN (21:32)
[2023-05-03] MEDS ORDERED: ONDANSETRON *ODT* 4 MG TABLET SL PRN (02:49)
[2023-05-03] MEDS: GABAPENTIN 300 MG CAPSULE PO SCH ×3 (06:38→21:22)
[2023-05-03] MEDS: DOLUTEGRAVIR SODIUM 50 MG TABLET (NON-FORMULARY) PO SCH (07:11)
[2023-05-03] MEDS: PRENATAL VITAMINS W/ FOLIC ACID TABLET (FP) PO SCH (09:43)
[2023-05-03] MEDS: BENZTROPINE MESYLATE 1 MG TABLET PO SCH ×2 (09:43→21:21)
[2023-05-03] MEDS: METHOCARBAMOL 500 MG TABLET PO PRN (09:45)
[2023-05-03] MEDS: SIMETHICONE 80 MG TAB.CHEW (FP) PO PRN (14:37)
[2023-05-03] MEDS: IBUPROFEN 600 MG TABLET (FP) PO PRN (17:54)
[2023-05-03] MEDS: SUVOREXANT 20 MG TABLET PO PRN (21:22)
[2023-05-03] MEDS: THIAMINE HCL 100 MG TABLET (FP) PO SCH (21:22)
[2023-05-04] MEDS: GABAPENTIN 300 MG CAPSULE PO SCH ×3 (06:19→21:38)
[2023-05-04] MEDS: IBUPROFEN 600 MG TABLET (FP) PO PRN ×2 (06:22→14:36)
[2023-05-04] MEDS: DOLUTEGRAVIR SODIUM 50 MG TABLET (NON-FORMULARY) PO SCH (07:06)
[2023-05-04] MEDS: PRENATAL VITAMINS W/ FOLIC ACID TABLET (FP) PO SCH (09:54)
[2023-05-04] MEDS: BENZTROPINE MESYLATE 1 MG TABLET PO SCH ×2 (09:54→21:38)
[2023-05-04] MEDS: SUVOREXANT 20 MG TABLET PO PRN (21:38)
[2023-05-04] MEDS: THIAMINE HCL 100 MG TABLET (FP) PO SCH (21:38)
[2023-05-04] MEDS: ACETAMINOPHEN 325 MG TABLET (FP) PO PRN (21:39)
[2023-05-04] MEDS: METHOCARBAMOL 500 MG TABLET PO PRN (21:41)
[2023-05-05] MEDS: IBUPROFEN 600 MG TABLET (FP) PO PRN ×2 (05:18→20:51)
[2023-05-05] MEDS: GABAPENTIN 300 MG CAPSULE PO SCH ×3 (06:32→21:38)
[2023-05-05] MEDS: METHOCARBAMOL 500 MG TABLET PO PRN ×2 (06:34→21:39)
[2023-05-05] MEDS: DOLUTEGRAVIR SODIUM 50 MG TABLET (NON-FORMULARY) PO SCH (07:13)
[2023-05-05] MEDS: BENZTROPINE MESYLATE 1 MG TABLET PO SCH ×2 (10:01→21:38)
[2023-05-05] MEDS: PRENATAL VITAMINS W/ FOLIC ACID TABLET (FP) PO SCH (10:01)
[2023-05-05] MEDS: ACETAMINOPHEN 325 MG TABLET (FP) PO PRN ×2 (10:03→14:59)
[2023-05-05] MEDS: AMOX TR/POT CLAV 500MG/125MG TABLETS (FP) PO SCH ×2 (13:04→16:55)
[2023-05-05] MEDS: BENZOCAINE 20 % GEL TUBE MM PRN ×2 (14:59→19:31)
[2023-05-05] MEDS: IBUPROFEN 400 MG TABLET (FP) PO PRN (16:55)
[2023-05-05] MEDS: SUVOREXANT 20 MG TABLET PO PRN (21:38)
[2023-05-05] MEDS: THIAMINE HCL 100 MG TABLET (FP) PO SCH (21:38)
[2023-05-05] MEDS: AMMONIUM LACTATE 12% LOTION 225 GM BOTTLE TP PRN (21:40)
[2023-05-06] MEDS: IBUPROFEN 600 MG TABLET (FP) PO PRN ×3 (01:12→16:13)
[2023-05-06] MEDS: GABAPENTIN 300 MG CAPSULE PO SCH ×3 (06:28→21:37)
[2023-05-06] MEDS: METHOCARBAMOL 500 MG TABLET PO PRN ×2 (06:30→21:36)
[2023-05-06] MEDS: BENZOCAINE 20 % GEL TUBE MM PRN (06:32)
[2023-05-06] MEDS: DOLUTEGRAVIR SODIUM 50 MG TABLET (NON-FORMULARY) PO SCH (07:31)
[2023-05-06] MEDS: AMOX TR/POT CLAV 500MG/125MG TABLETS (FP) PO SCH ×2 (07:31→16:47)
[2023-05-06] MEDS: PRENATAL VITAMINS W/ FOLIC ACID TABLET (FP) PO SCH (09:54)
[2023-05-06] MEDS: BENZTROPINE MESYLATE 1 MG TABLET PO SCH ×2 (09:54→21:37)
[2023-05-06] MEDS: ALBUTEROL SO4 HFA INHALER IH PRN (21:34)
[2023-05-06] MEDS: IBUPROFEN 400 MG TABLET (FP) PO PRN (21:35)
[2023-05-06] MEDS: SUVOREXANT 20 MG TABLET PO PRN (21:35)
[2023-05-06] MEDS: THIAMINE HCL 100 MG TABLET (FP) PO SCH (21:37)
[2023-05-07] MEDS: GABAPENTIN 300 MG CAPSULE PO SCH ×2 (06:21→13:28)
[2023-05-07] MEDS: ALBUTEROL SO4 HFA INHALER IH PRN (06:22)
[2023-05-07] MEDS: IBUPROFEN 400 MG TABLET (FP) PO PRN (06:23)
[2023-05-07] MEDS: DOLUTEGRAVIR SODIUM 50 MG TABLET (NON-FORMULARY) PO SCH (07:14)
[2023-05-07] MEDS: AMOX TR/POT CLAV 500MG/125MG TABLETS (FP) PO SCH ×2 (07:14→16:56)
[2023-05-07] MEDS: BENZTROPINE MESYLATE 1 MG TABLET PO SCH (10:08)
[2023-05-07] MEDS: PRENATAL VITAMINS W/ FOLIC ACID TABLET (FP) PO SCH (10:08)
[2023-05-07] MEDS: METHOCARBAMOL 500 MG TABLET PO PRN (10:10)
[2023-05-07] MEDS: BENZOCAINE 20 % GEL TUBE MM PRN (14:40)
[2023-05-07] MEDS: ACETAMINOPHEN 325 MG TABLET (FP) PO PRN (16:58)
[2023-05-07] MEDS: SIMETHICONE 80 MG TAB.CHEW (FP) PO PRN (17:52)
[2023-05-08] MEDS: THIAMINE HCL 100 MG TABLET (FP) PO SCH ×2 (00:01→21:12)
[2023-05-08] MEDS: GABAPENTIN 300 MG CAPSULE PO SCH ×4 (00:01→21:12)
[2023-05-08] MEDS: ACETAMINOPHEN 325 MG TABLET (FP) PO PRN ×3 (06:39→21:12)
[2023-05-08] MEDS: AMOX TR/POT CLAV 500MG/125MG TABLETS (FP) PO SCH ×2 (07:02→16:47)
[2023-05-08] MEDS: DOLUTEGRAVIR SODIUM 50 MG TABLET (NON-FORMULARY) PO SCH (07:02)
[2023-05-08 07:31] VITALS: RESP 18
[2023-05-08] MEDS: PRENATAL VITAMINS W/ FOLIC ACID TABLET (FP) PO SCH (09:47)
[2023-05-08] MEDS: ERGOCALCIFEROL (VIT D2) 50,000 UNIT (1.25 MG) CAPSULE PO SCH (09:48)
[2023-05-08] MEDS: BENZTROPINE MESYLATE 1 MG TABLET PO SCH ×3 (09:48→21:14)
[2023-05-08] MEDS: COLLOIDAL OATMEAL 1 BAR EACH TP PRN (09:50)
[2023-05-08] MEDS: MAG HYDROX/AL HYDROX/SIMETH 30 ML UNIT-DOSE CUP PO PRN (13:43)
[2023-05-08] MEDS: METHOCARBAMOL 500 MG TABLET PO PRN (15:50)
[2023-05-09] MEDS: GABAPENTIN 300 MG CAPSULE PO SCH ×3 (06:32→21:38)
[2023-05-09] MEDS: METHOCARBAMOL 500 MG TABLET PO PRN (06:34)
[2023-05-09] MEDS: DOLUTEGRAVIR SODIUM 50 MG TABLET (NON-FORMULARY) PO SCH (07:05)
[2023-05-09] MEDS: AMOX TR/POT CLAV 500MG/125MG TABLETS (FP) PO SCH ×2 (07:08→17:33)
[2023-05-09] MEDS: BENZTROPINE MESYLATE 1 MG TABLET PO SCH ×2 (10:06→21:38)
[2023-05-09] MEDS: PRENATAL VITAMINS W/ FOLIC ACID TABLET (FP) PO SCH (10:06)
[2023-05-09] MEDS: IBUPROFEN 600 MG TABLET (FP) PO PRN (10:55)
[2023-05-09] MEDS: MAG HYDROX/AL HYDROX/SIMETH 30 ML UNIT-DOSE CUP PO PRN (14:20)
[2023-05-09] MEDS: SIMETHICONE 80 MG TAB.CHEW (FP) PO PRN (17:34)
[2023-05-09] MEDS: THIAMINE HCL 100 MG TABLET (FP) PO SCH (21:38)
[2023-05-09] MEDS: IBUPROFEN 400 MG TABLET (FP) PO PRN (21:40)
[2023-05-10] MEDS: ACETAMINOPHEN 325 MG TABLET (FP) PO PRN (06:47)
[2023-05-10] MEDS: GABAPENTIN 300 MG CAPSULE PO SCH ×3 (06:48→21:18)
[2023-05-10] MEDS: AMOX TR/POT CLAV 500MG/125MG TABLETS (FP) PO SCH ×2 (07:05→17:42)
[2023-05-10] MEDS: DOLUTEGRAVIR SODIUM 50 MG TABLET (NON-FORMULARY) PO SCH (07:05)
[2023-05-10] MEDS ORDERED: OFLOXACIN 0.3% OTIC SOLUTION 5 ML BOTTLE AD ONE (09:21)
[2023-05-10] MEDS: PRENATAL VITAMINS W/ FOLIC ACID TABLET (FP) PO SCH (10:01)
[2023-05-10] MEDS: BENZTROPINE MESYLATE 1 MG TABLET PO SCH ×2 (10:02→21:16)
[2023-05-10 12:16] LABS: BASO % 0.8 % (0-2.0); EOS % 1.8 % (0-4.5); HEMATOCRIT 36.2 % (32.4-45.2); HEMOGLOBIN 12.3 GM/dL (10.7-15.3); LYMPH % 36.3 % (8-40); MCH 32.9 pg (25.7-33.7); MCHC 33.9 g/dl (32.0-36.0); MEAN CELL VOLUME 97.3 fl (80-96); MEAN PLT VOLUME 8.9 fl (7.5-11.1); MONO % 14.3 % (3.8-10.2); NEUT % 46.8 % (42.8-82.8); PLATELET COUNT 399 10^3/uL (134-434); RBC 3.73 M/mm3 (3.60-5.2); RDW 14.5 % (11.6-15.6); WHITE BLOOD COUNT 4.2 K/mm3 (4.0-10.0)
[2023-05-10 12:42] LABS: ALBUMIN 4.1 g/dl (3.4-5.0); BLOOD UREA NITROGEN 17.8 mg/dL (7-18)
[2023-05-10 12:44] LABS: BILIRUBIN,TOTAL 0.4 mg/dL (0.2-1)
[2023-05-10 12:45] LABS: CREATININE 0.8 mg/dL (0.55-1.3)
[2023-05-10] MEDS: SIMETHICONE 80 MG TAB.CHEW (FP) PO PRN (17:43)
[2023-05-10] MEDS: THIAMINE HCL 100 MG TABLET (FP) PO SCH (21:18)
[2023-05-10] MEDS: METHOCARBAMOL 500 MG TABLET PO PRN (21:18)
[2023-05-10] MEDS: IBUPROFEN 400 MG TABLET (FP) PO PRN (21:18)
[2023-05-10] MEDS: ALBUTEROL SO4 HFA INHALER IH PRN (21:19)
[2023-05-11] MEDS: METHOCARBAMOL 500 MG TABLET PO PRN ×2 (06:24→17:45)
[2023-05-11] MEDS: ACETAMINOPHEN 325 MG TABLET (FP) PO PRN (06:24)
[2023-05-11] MEDS: GABAPENTIN 300 MG CAPSULE PO SCH ×3 (06:24→22:27)
[2023-05-11] MEDS: ALBUTEROL SO4 HFA INHALER IH PRN (06:26)
[2023-05-11] MEDS: AMOX TR/POT CLAV 500MG/125MG TABLETS (FP) PO SCH ×2 (07:10→17:45)
[2023-05-11] MEDS: DOLUTEGRAVIR SODIUM 50 MG TABLET (NON-FORMULARY) PO SCH (07:11)
[2023-05-11] MEDS: MAG HYDROX/AL HYDROX/SIMETH 30 ML UNIT-DOSE CUP PO PRN (07:18)
[2023-05-11] MEDS: PRENATAL VITAMINS W/ FOLIC ACID TABLET (FP) PO SCH (10:06)
[2023-05-11] MEDS: BENZTROPINE MESYLATE 1 MG TABLET PO SCH ×2 (10:07→22:27)
[2023-05-11] MEDS: SIMETHICONE 80 MG TAB.CHEW (FP) PO PRN (10:11)
[2023-05-11] MEDS: OFLOXACIN 0.3% OTIC SOLUTION 5 ML BOTTLE AD SCH (10:12)
[2023-05-11] MEDS: IBUPROFEN 600 MG TABLET (FP) PO PRN ×2 (13:45→22:27)
[2023-05-11] MEDS ORDERED: ZIPRASIDONE 20 MG CAPSULE PO ONE (14:58)
[2023-05-11] MEDS: THIAMINE HCL 100 MG TABLET (FP) PO SCH (22:27)
[2023-05-11] MEDS: ZIPRASIDONE 20 MG CAPSULE PO SCH (22:27)
[2023-05-12] MEDS: GABAPENTIN 300 MG CAPSULE PO SCH ×3 (07:10→21:23)
[2023-05-12] MEDS: AMOX TR/POT CLAV 500MG/125MG TABLETS (FP) PO SCH (07:10)
[2023-05-12] MEDS: DOLUTEGRAVIR SODIUM 50 MG TABLET (NON-FORMULARY) PO SCH (07:11)
[2023-05-12] MEDS: ACETAMINOPHEN 325 MG TABLET (FP) PO PRN (07:11)
[2023-05-12] MEDS: PRENATAL VITAMINS W/ FOLIC ACID TABLET (FP) PO SCH (09:47)
[2023-05-12] MEDS: BENZTROPINE MESYLATE 1 MG TABLET PO SCH ×2 (09:48→21:24)
[2023-05-12] MEDS: OFLOXACIN 0.3% OTIC SOLUTION 5 ML BOTTLE AD SCH (09:48)
[2023-05-12] MEDS: ZIPRASIDONE 20 MG CAPSULE PO SCH ×2 (09:49→21:25)
[2023-05-12] MEDS: ALBUTEROL SO4 HFA INHALER IH PRN ×2 (09:49→21:25)
[2023-05-12] MEDS: SIMETHICONE 80 MG TAB.CHEW (FP) PO PRN ×2 (09:50→21:25)
[2023-05-12] MEDS: IBUPROFEN 600 MG TABLET (FP) PO PRN ×2 (14:38→21:27)
[2023-05-12] MEDS: THIAMINE HCL 100 MG TABLET (FP) PO SCH (21:24)
[2023-05-12] MEDS: METHOCARBAMOL 500 MG TABLET PO PRN (21:28)
[2023-05-12] MEDS: NICOTINE 10 MG CARTRIDGE (INHALER) IH PRN (21:46)
[2023-05-13] MEDS: GABAPENTIN 300 MG CAPSULE PO SCH (06:08)
[2023-05-13] MEDS: ACETAMINOPHEN 325 MG TABLET (FP) PO PRN ×2 (06:09→09:33)
[2023-05-13 06:52] VITALS: TEMP 97.3
[2023-05-13] MEDS: DOLUTEGRAVIR SODIUM 50 MG TABLET (NON-FORMULARY) PO SCH (07:08)
[2023-05-13] MEDS: BENZTROPINE MESYLATE 1 MG TABLET PO SCH (09:25)
[2023-05-13] MEDS: OFLOXACIN 0.3% OTIC SOLUTION 5 ML BOTTLE AD SCH (09:26)
[2023-05-13] MEDS: ZIPRASIDONE 20 MG CAPSULE PO SCH (09:28)
[2023-05-13] MEDS: PRENATAL VITAMINS W/ FOLIC ACID TABLET (FP) PO SCH (09:29)
[2023-05-13] MEDS: ALBUTEROL SO4 HFA INHALER IH PRN (09:35)
[2023-05-13 10:42] VITALS: BP 135/75; PULSE 90
== END 2023-05-13 10:05 | disposition home or self-care (01) | DRG 772 ==
LOC: YASAS 16:17 → Y5N 21:21
PROVIDERS: ADMIT Allergy & Immunology; ATTEND Psychiatry & Neurology Pain Medicine
PROC: HZ42ZZZ Group Counseling for Substance Abuse Treatment, Cognitive-Behavioral (ICD-10-PCS; principal; 2023-04-19)
DX: F14.20 Cocaine dependence, uncomplicated (principal); F25.9 Schizoaffective disorder, unspecified; Z21 Asymptomatic human immunodeficiency virus [HIV] infection status; D57.3 Sickle-cell trait; D53.1 Other megaloblastic anemias, not elsewhere classified; F17.210 Nicotine dependence, cigarettes, uncomplicated; H60.91 Unspecified otitis externa, right ear; J45.20 Mild intermittent asthma, uncomplicated; K21.9 Gastro-esophageal reflux disease without esophagitis; L30.9 Dermatitis, unspecified; M16.0 Bilateral primary osteoarthritis of hip; M62.838 Other muscle spasm; Z86.69 Personal history of other diseases of the nervous system and sense organs; Z86.19 Personal history of other infectious and parasitic diseases
CPT/HCPCS: 36415; 71046-TC-FY; 80053; 81003; 82962; 85025; 85027; 86359; 86360; 86593; 86780; 87536; 87635; Q0162

== ENCOUNTER 2023-07-05 11:48 | Inpatient (IN) | payer OTHER ==
[2023-07-05 12:41] VITALS: BMI 18.8
[2023-07-05] MEDS ORDERED: LOPERAMIDE HCL 2 MG CAPSULE PO PRN (13:32)
[2023-07-05] MEDS ORDERED: NALOXONE HCL 0.4 MG/ML VIAL IM PRN (13:32)
[2023-07-05] MEDS ORDERED: MAG HYDROX/AL HYDROX/SIMETH 30 ML UNIT-DOSE CUP PO PRN (13:32)
[2023-07-05] MEDS ORDERED: hydrOXYzine PAMOATE 25 MG CAPSULE (FP) PO PRN (13:32)
[2023-07-05] MEDS ORDERED: guaiFENesin 600 MG TABLET.ER (FP) PO PRN (13:32)
[2023-07-05] MEDS ORDERED: MAGNESIUM HYDROX 2400MG/30ML ORAL SUSPENSION 30 ML CUP PO PRN (13:32)
[2023-07-05] MEDS ORDERED: NALOXONE HCL (KLOXXADO) 8 MG SPRAY NS PRN (13:32)
[2023-07-05] MEDS ORDERED: BENZONATATE 200 MG CAPSULE PO PRN (13:32)
[2023-07-05] MEDS ORDERED: AMMONIUM LACTATE 12% LOTION 225 GM BOTTLE TP PRN (13:32)
[2023-07-05] MEDS ORDERED: IBUPROFEN 400 MG TABLET (FP) PO PRN (13:32)
[2023-07-05] MEDS ORDERED: POLYETHYLENE GLYCOL (HEALTHYLAX) 3350 17 GM PACKET PO PRN (13:32)
[2023-07-05] MEDS ORDERED: NICOTINE POLACRILEX 2 MG GUM BUC PRN (13:32)
[2023-07-05] MEDS: IBUPROFEN 600 MG TABLET (FP) PO PRN (15:41)
[2023-07-05 16:15] LABS: HEMOGLOBIN 12.2 GM/dL (10.7-15.3); MCH 31.9 pg (25.7-33.7); MEAN CELL VOLUME 96.7 fl (80-96); MEAN PLT VOLUME 7.8 fl (7.5-11.1); PLATELET COUNT 441 10^3/uL (134-434); RBC 3.82 M/mm3 (3.60-5.2); WHITE BLOOD COUNT 6.8 K/mm3 (4.0-10.0)
[2023-07-05 16:22] LABS: POTASSIUM 3.6 mmol/L (3.5-5.1)
[2023-07-05 16:24] LABS: CALCIUM 9.2 mg/dL (8.5-10.1)
[2023-07-05 16:25] LABS: ALBUMIN 3.9 g/dl (3.4-5.0); BLOOD UREA NITROGEN 25.1 mg/dL (7-18)
[2023-07-05 16:29] LABS: TOT PROT 8.1 g/dl (6.4-8.2)
[2023-07-05 16:30] LABS: BILIRUBIN,TOTAL 0.4 mg/dL (0.2-1)
[2023-07-05] MEDS: COLLOIDAL OATMEAL 1 BAR EACH TP PRN (18:31)
[2023-07-05] MEDS: ACETAMINOPHEN 325 MG TABLET (FP) PO PRN (21:22)
[2023-07-05] MEDS: MELATONIN 5 MG TABLETS PO SCH (21:23)
[2023-07-05] MEDS: THIAMINE HCL 100 MG TABLET (FP) PO SCH (21:23)
[2023-07-06] MEDS: PRENATAL VITAMINS W/ FOLIC ACID TABLET (FP) PO SCH ×2 (10:32→13:44)
[2023-07-06] MEDS: BENZTROPINE MESYLATE 1 MG TABLET PO SCH ×2 (10:35→21:51)
[2023-07-06] MEDS: ACETAMINOPHEN 325 MG TABLET (FP) PO PRN ×2 (10:40→21:54)
[2023-07-06] MEDS: NICOTINE 14 MG/24 HOURS TOPICAL PATCH TD SCH (10:42)
[2023-07-06] MEDS: ZIPRASIDONE 20 MG CAPSULE PO SCH ×2 (10:42→21:51)
[2023-07-06] MEDS: PANTOPRAZOLE 20 MG TABLET PO SCH (13:41)
[2023-07-06] MEDS: AMOX TR/POT CLAV 500MG/125MG TABLETS (FP) PO SCH (17:32)
[2023-07-06] MEDS: MELATONIN 5 MG TABLETS PO SCH (21:51)
[2023-07-06] MEDS: THIAMINE HCL 100 MG TABLET (FP) PO SCH (21:51)
[2023-07-07] MEDS: DOLUTEGRAVIR SODIUM 50 MG TABLET (NON-FORMULARY) PO SCH (07:32)
[2023-07-07] MEDS: AMOX TR/POT CLAV 500MG/125MG TABLETS (FP) PO SCH ×2 (07:32→17:02)
[2023-07-07] MEDS ORDERED: PATIENT'S OWN MEDICATION (NON-FORMULARY) (Dolutegravir Sodium/Lamivudine [Dovato 50-300 Mg PO SCH (10:00)
[2023-07-07] MEDS: BENZTROPINE MESYLATE 1 MG TABLET PO SCH ×2 (10:04→21:17)
[2023-07-07] MEDS: PRENATAL VITAMINS W/ FOLIC ACID TABLET (FP) PO SCH ×2 (10:04→10:09)
[2023-07-07] MEDS: PANTOPRAZOLE 20 MG TABLET PO SCH (10:04)
[2023-07-07] MEDS: NICOTINE 14 MG/24 HOURS TOPICAL PATCH TD SCH (10:05)
[2023-07-07] MEDS: ZIPRASIDONE 20 MG CAPSULE PO SCH ×2 (10:05→21:49)
[2023-07-07] MEDS: IBUPROFEN 600 MG TABLET (FP) PO PRN (15:43)
[2023-07-07] MEDS: THIAMINE HCL 100 MG TABLET (FP) PO SCH (21:17)
[2023-07-07] MEDS: ACETAMINOPHEN 325 MG TABLET (FP) PO PRN (21:17)
[2023-07-07] MEDS: MELATONIN 5 MG TABLETS PO SCH (21:17)
[2023-07-07] MEDS: BACLOFEN 10 MG TABLET (FP) PO PRN (21:23)
[2023-07-07 23:20] LABS: PH,URINE 5.5 (5.0-8.0); URINE APPEARANCE CLEAR; URINE BILIRUBIN NEGATIVE (NEGATIVE); URINE COLOR YELLOW; URINE GLUCOSE (UA) NEGATIVE (NEGATIVE); URINE KETONE NEGATIVE (NEGATIVE); URINE LEUK ESTERASE TRACE (NEGATIVE); URINE NITRITE NEGATIVE (NEGATIVE); URINE PROTEIN NEGATIVE (NEGATIVE); URINE UROBILINOGEN 0.2 mg/dL (0.2-1.0)
[2023-07-07 23:36] LABS: EPI CELLS 2.4 /uL (0-25.1); HYALINE CASTS 0 /uL (0-3.1); URINE BACTERIA 3.1 /uL (0-1359); URINE RBC 0.8 /uL (0-23.9); URINE WBC 9.6 /uL (0-25.8)
[2023-07-08] MEDS: ACETAMINOPHEN 325 MG TABLET (FP) PO PRN ×2 (06:22→14:30)
[2023-07-08] MEDS: AMOX TR/POT CLAV 500MG/125MG TABLETS (FP) PO SCH ×2 (07:11→21:42)
[2023-07-08] MEDS: DOLUTEGRAVIR SODIUM 50 MG TABLET (NON-FORMULARY) PO SCH (07:11)
[2023-07-08] MEDS: BENZTROPINE MESYLATE 1 MG TABLET PO SCH ×2 (09:52→21:13)
[2023-07-08] MEDS: PRENATAL VITAMINS W/ FOLIC ACID TABLET (FP) PO SCH ×2 (09:52→09:53)
[2023-07-08] MEDS: PANTOPRAZOLE 20 MG TABLET PO SCH (09:52)
[2023-07-08] MEDS: ZIPRASIDONE 20 MG CAPSULE PO SCH ×2 (09:52→21:13)
[2023-07-08] MEDS: NICOTINE 14 MG/24 HOURS TOPICAL PATCH TD SCH (09:53)
[2023-07-08] MEDS: BACLOFEN 10 MG TABLET (FP) PO PRN ×2 (09:55→21:14)
[2023-07-08] MEDS: THIAMINE HCL 100 MG TABLET (FP) PO SCH (21:13)
[2023-07-08] MEDS: MELATONIN 5 MG TABLETS PO SCH (21:13)
[2023-07-09 07:38] VITALS: RESP 18
[2023-07-09] MEDS: AMOX TR/POT CLAV 500MG/125MG TABLETS (FP) PO SCH ×2 (07:45→17:03)
[2023-07-09] MEDS: DOLUTEGRAVIR SODIUM 50 MG TABLET (NON-FORMULARY) PO SCH (07:45)
[2023-07-09] MEDS: BACLOFEN 10 MG TABLET (FP) PO PRN (07:47)
[2023-07-09] MEDS: PRENATAL VITAMINS W/ FOLIC ACID TABLET (FP) PO SCH ×2 (09:45→10:04)
[2023-07-09] MEDS: ZIPRASIDONE 20 MG CAPSULE PO SCH ×2 (09:45→21:50)
[2023-07-09] MEDS: BENZTROPINE MESYLATE 1 MG TABLET PO SCH ×2 (09:45→21:50)
[2023-07-09] MEDS: PANTOPRAZOLE 20 MG TABLET PO SCH (09:45)
[2023-07-09] MEDS: ACETAMINOPHEN 325 MG TABLET (FP) PO PRN (09:49)
[2023-07-09] MEDS: NICOTINE 14 MG/24 HOURS TOPICAL PATCH TD SCH (09:50)
[2023-07-09] MEDS: IBUPROFEN 600 MG TABLET (FP) PO PRN (13:48)
[2023-07-09] MEDS: MELATONIN 5 MG TABLETS PO SCH (21:50)
[2023-07-09] MEDS: THIAMINE HCL 100 MG TABLET (FP) PO SCH (21:50)
[2023-07-10] MEDS: ACETAMINOPHEN 325 MG TABLET (FP) PO PRN ×4 (00:52→21:30)
[2023-07-10] MEDS: DOLUTEGRAVIR SODIUM 50 MG TABLET (NON-FORMULARY) PO SCH (07:18)
[2023-07-10] MEDS: AMOX TR/POT CLAV 500MG/125MG TABLETS (FP) PO SCH ×2 (07:18→16:57)
[2023-07-10] MEDS: BENZTROPINE MESYLATE 1 MG TABLET PO SCH ×2 (09:49→21:38)
[2023-07-10] MEDS: PANTOPRAZOLE 20 MG TABLET PO SCH (09:50)
[2023-07-10] MEDS: PRENATAL VITAMINS W/ FOLIC ACID TABLET (FP) PO SCH ×2 (09:50→09:51)
[2023-07-10] MEDS: ZIPRASIDONE 20 MG CAPSULE PO SCH ×2 (09:50→21:29)
[2023-07-10] MEDS: ERGOCALCIFEROL (VIT D2) 50,000 UNIT (1.25 MG) CAPSULE PO SCH (09:50)
[2023-07-10] MEDS: NICOTINE 14 MG/24 HOURS TOPICAL PATCH TD SCH (09:51)
[2023-07-10] MEDS: THIAMINE HCL 100 MG TABLET (FP) PO SCH (21:28)
[2023-07-10] MEDS: MELATONIN 5 MG TABLETS PO SCH (21:28)
[2023-07-11] MEDS: IBUPROFEN 600 MG TABLET (FP) PO PRN (00:54)
[2023-07-11] MEDS: ACETAMINOPHEN 325 MG TABLET (FP) PO PRN ×2 (06:51→10:13)
[2023-07-11] MEDS: DOLUTEGRAVIR SODIUM 50 MG TABLET (NON-FORMULARY) PO SCH (07:10)
[2023-07-11] MEDS: AMOX TR/POT CLAV 500MG/125MG TABLETS (FP) PO SCH ×2 (07:10→17:18)
[2023-07-11] MEDS ORDERED: METHYL SALICYLATE/MENTHOL OINT 30 GM TUBE TP PRN (09:58)
[2023-07-11] MEDS: PRENATAL VITAMINS W/ FOLIC ACID TABLET (FP) PO SCH ×2 (10:11→10:13)
[2023-07-11] MEDS: NICOTINE 14 MG/24 HOURS TOPICAL PATCH TD SCH (10:11)
[2023-07-11] MEDS: PANTOPRAZOLE 20 MG TABLET PO SCH (10:11)
[2023-07-11] MEDS: BENZTROPINE MESYLATE 1 MG TABLET PO SCH ×2 (10:11→21:18)
[2023-07-11] MEDS: ZIPRASIDONE 20 MG CAPSULE PO SCH ×2 (10:12→21:23)
[2023-07-11] MEDS: BENZOCAINE/MENTHOL (CHLORASEPTIC ) LOZENGE MM PRN (10:21)
[2023-07-11] MEDS: ALBUTEROL SO4 HFA INHALER IH PRN (13:18)
[2023-07-11] MEDS: BACLOFEN 10 MG TABLET (FP) PO PRN (17:17)
[2023-07-11] MEDS: GABAPENTIN 300 MG CAPSULE PO SCH ×2 (17:17→21:18)
[2023-07-11] MEDS: THIAMINE HCL 100 MG TABLET (FP) PO SCH (21:18)
[2023-07-11] MEDS: MELATONIN 5 MG TABLETS PO SCH (21:19)
[2023-07-11] MEDS: LIDOCAINE 5% TOPICAL PATCH TP PRN (21:23)
[2023-07-11] MEDS: LIDOCAINE PATCH REMOVAL MC SCH (21:24)
[2023-07-12] MEDS: NAPROXEN 500 MG TABLET PO PRN ×2 (06:41→22:01)
[2023-07-12] MEDS: GABAPENTIN 300 MG CAPSULE PO SCH ×3 (06:41→22:01)
[2023-07-12] MEDS: AMOX TR/POT CLAV 500MG/125MG TABLETS (FP) PO SCH ×2 (07:08→18:05)
[2023-07-12] MEDS: DOLUTEGRAVIR SODIUM 50 MG TABLET (NON-FORMULARY) PO SCH (07:08)
[2023-07-12] MEDS: PANTOPRAZOLE 20 MG TABLET PO SCH (10:00)
[2023-07-12] MEDS: ZIPRASIDONE 20 MG CAPSULE PO SCH ×2 (10:01→22:06)
[2023-07-12] MEDS: BENZTROPINE MESYLATE 1 MG TABLET PO SCH ×2 (10:01→22:01)
[2023-07-12] MEDS: PRENATAL VITAMINS W/ FOLIC ACID TABLET (FP) PO SCH ×2 (10:02)
[2023-07-12] MEDS: NICOTINE 14 MG/24 HOURS TOPICAL PATCH TD SCH (10:02)
[2023-07-12] MEDS: LIDOCAINE 5% TOPICAL PATCH TP PRN (10:03)
[2023-07-12] MEDS: ACETAMINOPHEN 325 MG TABLET (FP) PO PRN (10:36)
[2023-07-12] MEDS: ALBUTEROL SO4 HFA INHALER IH PRN ×2 (10:36→22:05)
[2023-07-12] MEDS: BENZOCAINE/MENTHOL (CHLORASEPTIC ) LOZENGE MM PRN ×2 (10:38→22:04)
[2023-07-12] MEDS: MELATONIN 5 MG TABLETS PO SCH (22:01)
[2023-07-12] MEDS: THIAMINE HCL 100 MG TABLET (FP) PO SCH (22:01)
[2023-07-12] MEDS: BACLOFEN 10 MG TABLET (FP) PO PRN (22:02)
[2023-07-12] MEDS: LIDOCAINE PATCH REMOVAL MC SCH (22:02)
[2023-07-13] MEDS: ALBUTEROL SO4 HFA INHALER IH PRN ×2 (06:46→21:27)
[2023-07-13] MEDS: NAPROXEN 500 MG TABLET PO PRN ×2 (06:48→21:31)
[2023-07-13] MEDS: GABAPENTIN 300 MG CAPSULE PO SCH ×3 (06:48→21:33)
[2023-07-13] MEDS: DOLUTEGRAVIR SODIUM 50 MG TABLET (NON-FORMULARY) PO SCH (07:20)
[2023-07-13] MEDS: AMOX TR/POT CLAV 500MG/125MG TABLETS (FP) PO SCH ×2 (07:20→17:36)
[2023-07-13] MEDS: NICOTINE 14 MG/24 HOURS TOPICAL PATCH TD SCH (10:37)
[2023-07-13] MEDS: BENZTROPINE MESYLATE 1 MG TABLET PO SCH ×2 (10:38→21:27)
[2023-07-13] MEDS: PRENATAL VITAMINS W/ FOLIC ACID TABLET (FP) PO SCH ×2 (10:38)
[2023-07-13] MEDS: ZIPRASIDONE 20 MG CAPSULE PO SCH ×2 (10:39→21:34)
[2023-07-13] MEDS: PANTOPRAZOLE 20 MG TABLET PO SCH (10:39)
[2023-07-13] MEDS: BACLOFEN 10 MG TABLET (FP) PO PRN (10:42)
[2023-07-13] MEDS: LIDOCAINE 5% TOPICAL PATCH TP PRN (10:43)
[2023-07-13] MEDS: MELATONIN 5 MG TABLETS PO SCH (21:28)
[2023-07-13] MEDS: THIAMINE HCL 100 MG TABLET (FP) PO SCH (21:28)
[2023-07-13] MEDS: BENZOCAINE/MENTHOL (CHLORASEPTIC ) LOZENGE MM PRN (21:31)
[2023-07-13] MEDS: LIDOCAINE PATCH REMOVAL MC SCH (22:21)
[2023-07-14] MEDS: NAPROXEN 500 MG TABLET PO PRN ×2 (06:47→21:22)
[2023-07-14] MEDS: GABAPENTIN 300 MG CAPSULE PO SCH ×3 (06:47→21:22)
[2023-07-14] MEDS: DOLUTEGRAVIR SODIUM 50 MG TABLET (NON-FORMULARY) PO SCH (07:01)
[2023-07-14] MEDS: AMOX TR/POT CLAV 500MG/125MG TABLETS (FP) PO SCH ×2 (07:01→17:57)
[2023-07-14] MEDS: PRENATAL VITAMINS W/ FOLIC ACID TABLET (FP) PO SCH ×2 (10:25→10:26)
[2023-07-14] MEDS: BENZTROPINE MESYLATE 1 MG TABLET PO SCH ×2 (10:25→21:23)
[2023-07-14] MEDS: ZIPRASIDONE 20 MG CAPSULE PO SCH ×2 (10:26→21:23)
[2023-07-14] MEDS: NICOTINE 14 MG/24 HOURS TOPICAL PATCH TD SCH (10:26)
[2023-07-14] MEDS: PANTOPRAZOLE 20 MG TABLET PO SCH (10:26)
[2023-07-14] MEDS: ALBUTEROL SO4 HFA INHALER IH PRN ×2 (10:28→21:25)
[2023-07-14] MEDS: LIDOCAINE 5% TOPICAL PATCH TP PRN (10:28)
[2023-07-14] MEDS: ACETAMINOPHEN 325 MG TABLET (FP) PO PRN (10:29)
[2023-07-14] MEDS: BENZOCAINE/MENTHOL (CHLORASEPTIC ) LOZENGE MM PRN (14:40)
[2023-07-14] MEDS: THIAMINE HCL 100 MG TABLET (FP) PO SCH (21:22)
[2023-07-14] MEDS: MELATONIN 5 MG TABLETS PO SCH (21:22)
[2023-07-14] MEDS: LIDOCAINE PATCH REMOVAL MC SCH (21:23)
[2023-07-15] MEDS: GABAPENTIN 300 MG CAPSULE PO SCH ×3 (06:34→21:23)
[2023-07-15] MEDS: ACETAMINOPHEN 325 MG TABLET (FP) PO PRN (06:37)
[2023-07-15] MEDS: NAPROXEN 500 MG TABLET PO PRN ×2 (06:37→16:58)
[2023-07-15] MEDS: DOLUTEGRAVIR SODIUM 50 MG TABLET (NON-FORMULARY) PO SCH (07:05)
[2023-07-15] MEDS: AMOX TR/POT CLAV 500MG/125MG TABLETS (FP) PO SCH ×2 (07:07→16:58)
[2023-07-15] MEDS: BENZTROPINE MESYLATE 1 MG TABLET PO SCH ×2 (10:13→21:23)
[2023-07-15] MEDS: PANTOPRAZOLE 20 MG TABLET PO SCH (10:13)
[2023-07-15] MEDS: PRENATAL VITAMINS W/ FOLIC ACID TABLET (FP) PO SCH ×2 (10:13→10:16)
[2023-07-15] MEDS: ZIPRASIDONE 20 MG CAPSULE PO SCH ×2 (10:14→21:24)
[2023-07-15] MEDS: NICOTINE 14 MG/24 HOURS TOPICAL PATCH TD SCH (10:15)
[2023-07-15] MEDS: ALBUTEROL SO4 HFA INHALER IH PRN ×2 (10:16→21:23)
[2023-07-15] MEDS: LIDOCAINE 5% TOPICAL PATCH TP PRN (10:20)
[2023-07-15] MEDS: BENZOCAINE/MENTHOL (CHLORASEPTIC ) LOZENGE MM PRN ×2 (16:58→21:28)
[2023-07-15 17:25] LABS: EPI CELLS 3 /uL (0-25.1); HYALINE CASTS 0 /uL (0-3.1); PH,URINE 6.5 (5.0-8.0); URINE APPEARANCE CLEAR; URINE BACTERIA 4 /uL (0-1359); URINE BILIRUBIN NEGATIVE (NEGATIVE); URINE COLOR YELLOW; URINE GLUCOSE (UA) NEGATIVE (NEGATIVE); URINE KETONE NEGATIVE (NEGATIVE); URINE LEUK ESTERASE TRACE (NEGATIVE); URINE NITRITE NEGATIVE (NEGATIVE); URINE PROTEIN NEGATIVE (NEGATIVE); URINE RBC 1 /uL (0-23.9); URINE UROBILINOGEN 0.2 mg/dL (0.2-1.0); URINE WBC 16 /uL (0-25.8)
[2023-07-15] MEDS: MELATONIN 5 MG TABLETS PO SCH (21:24)
[2023-07-15] MEDS: THIAMINE HCL 100 MG TABLET (FP) PO SCH (21:24)
[2023-07-15] MEDS: LIDOCAINE PATCH REMOVAL MC SCH (21:24)
[2023-07-15] MEDS: BACLOFEN 10 MG TABLET (FP) PO PRN (21:28)
[2023-07-16] MEDS: GABAPENTIN 300 MG CAPSULE PO SCH ×3 (06:39→21:14)
[2023-07-16] MEDS: NAPROXEN 500 MG TABLET PO PRN (06:39)
[2023-07-16] MEDS: AMOX TR/POT CLAV 500MG/125MG TABLETS (FP) PO SCH ×2 (07:13→17:00)
[2023-07-16] MEDS: DOLUTEGRAVIR SODIUM 50 MG TABLET (NON-FORMULARY) PO SCH (07:14)
[2023-07-16] MEDS: PRENATAL VITAMINS W/ FOLIC ACID TABLET (FP) PO SCH ×2 (10:30→10:32)
[2023-07-16] MEDS: BENZTROPINE MESYLATE 1 MG TABLET PO SCH ×2 (10:30→21:14)
[2023-07-16] MEDS: ZIPRASIDONE 20 MG CAPSULE PO SCH ×2 (10:31→21:15)
[2023-07-16] MEDS: NICOTINE 14 MG/24 HOURS TOPICAL PATCH TD SCH (10:31)
[2023-07-16] MEDS: ACETAMINOPHEN 325 MG TABLET (FP) PO PRN ×2 (10:32→14:02)
[2023-07-16] MEDS: PANTOPRAZOLE 20 MG TABLET PO SCH (10:32)
[2023-07-16] MEDS: LIDOCAINE 5% TOPICAL PATCH TP PRN (10:33)
[2023-07-16] MEDS: COLLOIDAL OATMEAL 1 BAR EACH TP PRN (10:45)
[2023-07-16] MEDS: ALBUTEROL SO4 HFA INHALER IH PRN ×2 (14:02→21:18)
[2023-07-16] MEDS: LIDOCAINE PATCH REMOVAL MC SCH (21:13)
[2023-07-16] MEDS: BACLOFEN 10 MG TABLET (FP) PO PRN (21:14)
[2023-07-16] MEDS: MELATONIN 5 MG TABLETS PO SCH (21:14)
[2023-07-16] MEDS: THIAMINE HCL 100 MG TABLET (FP) PO SCH (21:16)
[2023-07-17] MEDS: NAPROXEN 500 MG TABLET PO PRN ×2 (06:20→21:56)
[2023-07-17] MEDS: GABAPENTIN 300 MG CAPSULE PO SCH ×3 (06:20→21:56)
[2023-07-17] MEDS: DOLUTEGRAVIR SODIUM 50 MG TABLET (NON-FORMULARY) PO SCH (07:03)
[2023-07-17] MEDS: PANTOPRAZOLE 20 MG TABLET PO SCH (09:54)
[2023-07-17] MEDS: PRENATAL VITAMINS W/ FOLIC ACID TABLET (FP) PO SCH ×2 (09:54→09:55)
[2023-07-17] MEDS: ZIPRASIDONE 20 MG CAPSULE PO SCH ×2 (09:54→21:56)
[2023-07-17] MEDS: BENZTROPINE MESYLATE 1 MG TABLET PO SCH ×2 (09:54→21:57)
[2023-07-17] MEDS: ERGOCALCIFEROL (VIT D2) 50,000 UNIT (1.25 MG) CAPSULE PO SCH (09:54)
[2023-07-17] MEDS: ACETAMINOPHEN 325 MG TABLET (FP) PO PRN (09:55)
[2023-07-17] MEDS: NICOTINE 14 MG/24 HOURS TOPICAL PATCH TD SCH (09:55)
[2023-07-17] MEDS: BACLOFEN 10 MG TABLET (FP) PO PRN ×2 (09:58→21:59)
[2023-07-17] MEDS: LIDOCAINE 5% TOPICAL PATCH TP PRN (09:59)
[2023-07-17] MEDS: ALBUTEROL SO4 HFA INHALER IH PRN ×2 (10:00→21:56)
[2023-07-17] MEDS: BENZOCAINE/MENTHOL (CHLORASEPTIC ) LOZENGE MM PRN ×2 (10:16→21:58)
[2023-07-17] MEDS ORDERED: NAPROXEN 500 MG TABLET PO PRN (17:43)
[2023-07-17] MEDS: THIAMINE HCL 100 MG TABLET (FP) PO SCH (21:55)
[2023-07-17] MEDS: MELATONIN 5 MG TABLETS PO SCH (21:55)
[2023-07-17] MEDS: LIDOCAINE PATCH REMOVAL MC SCH (21:57)
[2023-07-18] MEDS: ACETAMINOPHEN 325 MG TABLET (FP) PO PRN ×2 (00:42→10:32)
[2023-07-18] MEDS: GABAPENTIN 300 MG CAPSULE PO SCH ×3 (06:29→21:30)
[2023-07-18] MEDS: NAPROXEN 500 MG TABLET PO PRN ×2 (06:30→21:32)
[2023-07-18 07:03] VITALS: PULSE 89
[2023-07-18] MEDS: DOLUTEGRAVIR SODIUM 50 MG TABLET (NON-FORMULARY) PO SCH (07:05)
[2023-07-18] MEDS: BENZTROPINE MESYLATE 1 MG TABLET PO SCH ×2 (10:29→21:30)
[2023-07-18] MEDS: ALBUTEROL SO4 HFA INHALER IH PRN ×2 (10:29→21:29)
[2023-07-18] MEDS: PRENATAL VITAMINS W/ FOLIC ACID TABLET (FP) PO SCH ×2 (10:29→10:30)
[2023-07-18] MEDS: PANTOPRAZOLE 20 MG TABLET PO SCH (10:30)
[2023-07-18] MEDS: NICOTINE 14 MG/24 HOURS TOPICAL PATCH TD SCH (10:30)
[2023-07-18] MEDS: BACLOFEN 10 MG TABLET (FP) PO PRN ×2 (10:30→21:30)
[2023-07-18] MEDS: LIDOCAINE 5% TOPICAL PATCH TP PRN (10:31)
[2023-07-18] MEDS: ZIPRASIDONE 20 MG CAPSULE PO SCH ×2 (10:32→21:30)
[2023-07-18] MEDS: THIAMINE HCL 100 MG TABLET (FP) PO SCH (21:30)
[2023-07-18] MEDS: MELATONIN 5 MG TABLETS PO SCH (21:30)
[2023-07-18] MEDS: LIDOCAINE PATCH REMOVAL MC SCH (21:30)
[2023-07-18] MEDS: BENZOCAINE/MENTHOL (CHLORASEPTIC ) LOZENGE MM PRN (21:32)
[2023-07-19] MEDS: GABAPENTIN 300 MG CAPSULE PO SCH ×2 (06:35→14:15)
[2023-07-19] MEDS: NAPROXEN 500 MG TABLET PO PRN (06:35)
[2023-07-19] MEDS: DOLUTEGRAVIR SODIUM 50 MG TABLET (NON-FORMULARY) PO SCH (07:09)
[2023-07-19 07:59] VITALS: BP 120/76; TEMP 97.5
[2023-07-19] MEDS: PANTOPRAZOLE 20 MG TABLET PO SCH (10:01)
[2023-07-19] MEDS: BENZTROPINE MESYLATE 1 MG TABLET PO SCH (10:01)
[2023-07-19] MEDS: ZIPRASIDONE 20 MG CAPSULE PO SCH (10:01)
[2023-07-19] MEDS: NICOTINE 14 MG/24 HOURS TOPICAL PATCH TD SCH (10:01)
[2023-07-19] MEDS: ACETAMINOPHEN 325 MG TABLET (FP) PO PRN (10:04)
[2023-07-19] MEDS: LIDOCAINE 5% TOPICAL PATCH TP PRN (10:05)
[2023-07-19] MEDS: PRENATAL VITAMINS W/ FOLIC ACID TABLET (FP) PO SCH ×2 (10:08)
== END 2023-07-19 03:25 | disposition home or self-care (01) | DRG 772 ==
LOC: YASAS 11:48 → Y5N 13:11
PROVIDERS: ADMIT Allergy & Immunology; ATTEND Psychiatry & Neurology Pain Medicine
PROC: HZ42ZZZ Group Counseling for Substance Abuse Treatment, Cognitive-Behavioral (ICD-10-PCS; principal; 2023-07-05)
DX: F10.20 Alcohol dependence, uncomplicated (principal); F14.20 Cocaine dependence, uncomplicated; F17.210 Nicotine dependence, cigarettes, uncomplicated; F31.9 Bipolar disorder, unspecified; F25.9 Schizoaffective disorder, unspecified; B20 Human immunodeficiency virus [HIV] disease; J44.9 Chronic obstructive pulmonary disease, unspecified; K21.9 Gastro-esophageal reflux disease without esophagitis; K02.9 Dental caries, unspecified; M16.0 Bilateral primary osteoarthritis of hip; Z99.89 Dependence on other enabling machines and devices; Z86.19 Personal history of other infectious and parasitic diseases; Z88.8 Allergy status to other drugs, medicaments and biological substances
CPT/HCPCS: 36415; 80053; 81003; 85027; 86359; 86360; 86593; 86780; 87635; 87811; J0475

== ENCOUNTER 2023-09-19 19:31 | Inpatient (IN) | payer OTHER ==
[2023-09-19 20:57] VITALS: BMI 19.7
[2023-09-19] MEDS ORDERED: MELATONIN 5 MG TABLETS PO SCH (22:00)
[2023-09-19] MEDS ORDERED: NICOTINE POLACRILEX 2 MG GUM BUC PRN (23:51)
[2023-09-19] MEDS ORDERED: COLLOIDAL OATMEAL 1 BAR EACH TP PRN (23:51)
[2023-09-19] MEDS ORDERED: MAGNESIUM HYDROX 2400MG/30ML ORAL SUSPENSION 30 ML CUP PO PRN (23:51)
[2023-09-19] MEDS ORDERED: guaiFENesin 600 MG TABLET.ER (FP) PO PRN (23:51)
[2023-09-19] MEDS ORDERED: BENZONATATE 200 MG CAPSULE PO PRN (23:51)
[2023-09-19] MEDS ORDERED: P-EPHED 60MG/TRIPROLIDI 2.5MG TABLET PO PRN (23:51)
[2023-09-19] MEDS ORDERED: NALOXONE HCL 0.4 MG/ML VIAL IVPUSH PRN (23:51)
[2023-09-19] MEDS ORDERED: POLYETHYLENE GLYCOL (HEALTHYLAX) 3350 17 GM PACKET PO PRN (23:51)
[2023-09-19] MEDS ORDERED: IBUPROFEN 400 MG TABLET (FP) PO PRN (23:51)
[2023-09-19] MEDS ORDERED: MAG HYDROX/AL HYDROX/SIMETH 30 ML UNIT-DOSE CUP PO PRN (23:51)
[2023-09-19] MEDS ORDERED: NALOXONE HCL (KLOXXADO) 8 MG SPRAY NS PRN (23:51)
[2023-09-19] MEDS ORDERED: LOPERAMIDE HCL 2 MG CAPSULE PO PRN (23:51)
[2023-09-20] MEDS: LIDOCAINE PATCH REMOVAL MC SCH ×2 (02:29→22:11)
[2023-09-20] MEDS: hydrOXYzine PAMOATE 25 MG CAPSULE (FP) PO PRN (02:35)
[2023-09-20] MEDS: METHOCARBAMOL 500 MG TABLET PO PRN ×2 (02:35→11:35)
[2023-09-20] MEDS: ACETAMINOPHEN 325 MG TABLET (FP) PO PRN ×4 (02:35→16:24)
[2023-09-20] MEDS: ALBUTEROL SO4 HFA INHALER IH PRN (02:36)
[2023-09-20] MEDS: PRENATAL VITAMINS W/ FOLIC ACID TABLET (FP) PO SCH ×2 (11:35→11:40)
[2023-09-20] MEDS: ASPIRIN 81 MG CHEWABLE TABLETS PO SCH (11:36)
[2023-09-20] MEDS: LIDOCAINE 5% TOPICAL PATCH TP SCH (11:36)
[2023-09-20] MEDS: NICOTINE 14 MG/24 HOURS TOPICAL PATCH TD SCH (11:39)
[2023-09-20] MEDS: BENZTROPINE MESYLATE 1 MG TABLET PO SCH ×2 (13:02→22:09)
[2023-09-20] MEDS: ZIPRASIDONE 20 MG CAPSULE PO SCH (17:05)
[2023-09-20] MEDS: THIAMINE HCL 100 MG TABLET (FP) PO SCH (22:09)
[2023-09-20] MEDS: MELATONIN 5 MG TABLETS PO SCH (22:09)
[2023-09-21] MEDS: METHOCARBAMOL 500 MG TABLET PO PRN ×2 (06:27→16:49)
[2023-09-21] MEDS: hydrOXYzine PAMOATE 25 MG CAPSULE (FP) PO PRN (06:28)
[2023-09-21] MEDS: ZIPRASIDONE 20 MG CAPSULE PO SCH ×2 (07:01→16:48)
[2023-09-21] MEDS: PRENATAL VITAMINS W/ FOLIC ACID TABLET (FP) PO SCH ×2 (09:47→09:48)
[2023-09-21] MEDS: BENZTROPINE MESYLATE 1 MG TABLET PO SCH ×2 (09:47→21:09)
[2023-09-21] MEDS: ASPIRIN 81 MG CHEWABLE TABLETS PO SCH (09:47)
[2023-09-21] MEDS: NICOTINE 14 MG/24 HOURS TOPICAL PATCH TD SCH (09:48)
[2023-09-21] MEDS: LIDOCAINE 5% TOPICAL PATCH TP SCH (09:48)
[2023-09-21] MEDS: ACETAMINOPHEN 325 MG TABLET (FP) PO PRN (09:48)
[2023-09-21] MEDS: IBUPROFEN 600 MG TABLET (FP) PO PRN (16:49)
[2023-09-21] MEDS: LIDOCAINE PATCH REMOVAL MC SCH (21:09)
[2023-09-21] MEDS: MELATONIN 5 MG TABLETS PO SCH (21:09)
[2023-09-21] MEDS: GABAPENTIN 300 MG CAPSULE PO SCH (21:09)
[2023-09-21] MEDS: THIAMINE HCL 100 MG TABLET (FP) PO SCH (21:10)
[2023-09-22] MEDS: GABAPENTIN 300 MG CAPSULE PO SCH ×3 (06:29→21:24)
[2023-09-22] MEDS: IBUPROFEN 600 MG TABLET (FP) PO PRN ×2 (06:31→14:23)
[2023-09-22] MEDS: ZIPRASIDONE 20 MG CAPSULE PO SCH ×2 (07:02→17:36)
[2023-09-22] MEDS ORDERED: PATIENT'S OWN MEDICATION (NON-FORMULARY) (Dolutegravir Sodium/Lamivudine [Dovato 50-300 Mg PO SCH (10:00)
[2023-09-22] MEDS: ASPIRIN 81 MG CHEWABLE TABLETS PO SCH (10:06)
[2023-09-22] MEDS: NICOTINE 14 MG/24 HOURS TOPICAL PATCH TD SCH (10:06)
[2023-09-22] MEDS: BENZTROPINE MESYLATE 1 MG TABLET PO SCH ×2 (10:06→21:24)
[2023-09-22] MEDS: PRENATAL VITAMINS W/ FOLIC ACID TABLET (FP) PO SCH ×2 (10:07)
[2023-09-22] MEDS: DOLUTEGRAVIR SODIUM 50 MG TABLET (NON-FORMULARY) PO SCH (10:07)
[2023-09-22] MEDS: METHOCARBAMOL 500 MG TABLET PO PRN (10:10)
[2023-09-22] MEDS: LIDOCAINE 5% TOPICAL PATCH TP SCH (10:13)
[2023-09-22] MEDS: ACETAMINOPHEN 325 MG TABLET (FP) PO PRN ×2 (17:36→21:25)
[2023-09-22] MEDS: LIDOCAINE PATCH REMOVAL MC SCH (21:23)
[2023-09-22] MEDS: MELATONIN 5 MG TABLETS PO SCH (21:23)
[2023-09-22] MEDS: THIAMINE HCL 100 MG TABLET (FP) PO SCH (21:24)
[2023-09-23] MEDS: GABAPENTIN 300 MG CAPSULE PO SCH ×3 (06:34→21:10)
[2023-09-23] MEDS: ACETAMINOPHEN 325 MG TABLET (FP) PO PRN ×2 (06:35→17:17)
[2023-09-23] MEDS: METHOCARBAMOL 500 MG TABLET PO PRN ×2 (06:36→17:19)
[2023-09-23] MEDS: ASPIRIN 81 MG CHEWABLE TABLETS PO SCH (09:48)
[2023-09-23] MEDS: DOLUTEGRAVIR SODIUM 50 MG TABLET (NON-FORMULARY) PO SCH (09:48)
[2023-09-23] MEDS: ZIPRASIDONE 20 MG CAPSULE PO SCH ×2 (09:48→17:36)
[2023-09-23] MEDS: PRENATAL VITAMINS W/ FOLIC ACID TABLET (FP) PO SCH ×2 (09:49→09:50)
[2023-09-23] MEDS: BENZTROPINE MESYLATE 1 MG TABLET PO SCH ×2 (09:49→21:09)
[2023-09-23] MEDS: IBUPROFEN 600 MG TABLET (FP) PO PRN ×2 (09:52→21:11)
[2023-09-23] MEDS: LIDOCAINE 5% TOPICAL PATCH TP SCH (09:54)
[2023-09-23] MEDS: NICOTINE 14 MG/24 HOURS TOPICAL PATCH TD SCH (09:54)
[2023-09-23] MEDS: BENZOCAINE/MENTHOL (CHLORASEPTIC ) LOZENGE MM PRN (18:07)
[2023-09-23] MEDS: MELATONIN 5 MG TABLETS PO SCH (21:10)
[2023-09-23] MEDS: THIAMINE HCL 100 MG TABLET (FP) PO SCH (21:10)
[2023-09-23] MEDS: LIDOCAINE PATCH REMOVAL MC SCH (21:10)
[2023-09-23] MEDS: ALBUTEROL SO4 HFA INHALER IH PRN (21:12)
[2023-09-24] MEDS: GABAPENTIN 300 MG CAPSULE PO SCH ×3 (06:10→21:42)
[2023-09-24] MEDS: METHOCARBAMOL 500 MG TABLET PO PRN ×2 (06:10→21:19)
[2023-09-24] MEDS: ACETAMINOPHEN 325 MG TABLET (FP) PO PRN ×2 (06:11→21:22)
[2023-09-24] MEDS: ZIPRASIDONE 20 MG CAPSULE PO SCH ×2 (07:17→16:51)
[2023-09-24] MEDS: PRENATAL VITAMINS W/ FOLIC ACID TABLET (FP) PO SCH ×2 (10:20→10:22)
[2023-09-24] MEDS: ASPIRIN 81 MG CHEWABLE TABLETS PO SCH (10:20)
[2023-09-24] MEDS: ALBUTEROL SO4 HFA INHALER IH PRN (10:21)
[2023-09-24] MEDS: BENZTROPINE MESYLATE 1 MG TABLET PO SCH ×2 (10:21→21:19)
[2023-09-24] MEDS: NICOTINE 14 MG/24 HOURS TOPICAL PATCH TD SCH (10:22)
[2023-09-24] MEDS: DOLUTEGRAVIR SODIUM 50 MG TABLET (NON-FORMULARY) PO SCH (10:22)
[2023-09-24] MEDS: IBUPROFEN 600 MG TABLET (FP) PO PRN (10:25)
[2023-09-24] MEDS: LIDOCAINE 5% TOPICAL PATCH TP SCH (10:27)
[2023-09-24] MEDS: BENZOCAINE/MENTHOL (CHLORASEPTIC ) LOZENGE MM PRN (14:07)
[2023-09-24] MEDS: SIMETHICONE 80 MG TAB.CHEW (FP) PO PRN (17:17)
[2023-09-24] MEDS: hydrOXYzine PAMOATE 25 MG CAPSULE (FP) PO PRN (21:19)
[2023-09-24] MEDS: THIAMINE HCL 100 MG TABLET (FP) PO SCH (21:19)
[2023-09-24] MEDS: MELATONIN 5 MG TABLETS PO SCH (21:20)
[2023-09-24] MEDS: LIDOCAINE PATCH REMOVAL MC SCH (21:48)
[2023-09-25] MEDS: GABAPENTIN 300 MG CAPSULE PO SCH ×3 (06:48→21:23)
[2023-09-25] MEDS: ACETAMINOPHEN 325 MG TABLET (FP) PO PRN ×2 (06:48→12:00)
[2023-09-25] MEDS: METHOCARBAMOL 500 MG TABLET PO PRN ×2 (06:48→21:26)
[2023-09-25] MEDS: BENZOCAINE/MENTHOL (CHLORASEPTIC ) LOZENGE MM PRN (06:50)
[2023-09-25] MEDS: ALBUTEROL SO4 HFA INHALER IH PRN ×2 (06:51→21:24)
[2023-09-25] MEDS: ZIPRASIDONE 20 MG CAPSULE PO SCH ×2 (07:14→17:44)
[2023-09-25 07:16] VITALS: RESP 18
[2023-09-25] MEDS ORDERED: ERGOCALCIFEROL (VIT D2) 50,000 UNIT (1.25 MG) CAPSULE PO SCH (10:00)
[2023-09-25] MEDS: ASPIRIN 81 MG CHEWABLE TABLETS PO SCH (10:03)
[2023-09-25] MEDS: BENZTROPINE MESYLATE 1 MG TABLET PO SCH ×2 (10:03→21:23)
[2023-09-25] MEDS: PRENATAL VITAMINS W/ FOLIC ACID TABLET (FP) PO SCH ×2 (10:03→10:05)
[2023-09-25] MEDS: NICOTINE 14 MG/24 HOURS TOPICAL PATCH TD SCH (10:05)
[2023-09-25] MEDS: DOLUTEGRAVIR SODIUM 50 MG TABLET (NON-FORMULARY) PO SCH (10:05)
[2023-09-25] MEDS: LIDOCAINE 5% TOPICAL PATCH TP SCH (10:06)
[2023-09-25] MEDS: IBUPROFEN 600 MG TABLET (FP) PO PRN ×2 (13:32→21:26)
[2023-09-25] MEDS: MELATONIN 5 MG TABLETS PO SCH (21:22)
[2023-09-25] MEDS: THIAMINE HCL 100 MG TABLET (FP) PO SCH (21:23)
[2023-09-25] MEDS: LIDOCAINE PATCH REMOVAL MC SCH (21:24)
[2023-09-25] MEDS: SIMETHICONE 80 MG TAB.CHEW (FP) PO PRN (21:25)
[2023-09-26] MEDS: ACETAMINOPHEN 325 MG TABLET (FP) PO PRN (06:18)
[2023-09-26] MEDS: GABAPENTIN 300 MG CAPSULE PO SCH (06:19)
[2023-09-26 07:14] VITALS: BP 117/79; PULSE 75; TEMP 97.7
[2023-09-26] MEDS: ZIPRASIDONE 20 MG CAPSULE PO SCH (07:22)
[2023-09-26] MEDS: PRENATAL VITAMINS W/ FOLIC ACID TABLET (FP) PO SCH ×2 (09:15→09:18)
[2023-09-26] MEDS: ASPIRIN 81 MG CHEWABLE TABLETS PO SCH (09:16)
[2023-09-26] MEDS: DOLUTEGRAVIR SODIUM 50 MG TABLET (NON-FORMULARY) PO SCH (09:16)
[2023-09-26] MEDS: IBUPROFEN 600 MG TABLET (FP) PO PRN (09:17)
[2023-09-26] MEDS: BENZTROPINE MESYLATE 1 MG TABLET PO SCH (09:17)
[2023-09-26] MEDS: NICOTINE 14 MG/24 HOURS TOPICAL PATCH TD SCH (09:18)
[2023-09-26] MEDS: LIDOCAINE 5% TOPICAL PATCH TP SCH (09:20)
== END 2023-09-26 09:30 | disposition home or self-care (01) | DRG 772 ==
LOC: YASAS 19:31 → Y5N 09-20 02:12
PROVIDERS: ADMIT Allergy & Immunology; ATTEND Psychiatry & Neurology Pain Medicine
PROC: HZ42ZZZ Group Counseling for Substance Abuse Treatment, Cognitive-Behavioral (ICD-10-PCS; principal; 2023-09-20)
DX: F10.20 Alcohol dependence, uncomplicated (principal); F14.20 Cocaine dependence, uncomplicated; F17.210 Nicotine dependence, cigarettes, uncomplicated; F19.282 Other psychoactive substance dependence with psychoactive substance-induced sleep disorder; F25.9 Schizoaffective disorder, unspecified; B20 Human immunodeficiency virus [HIV] disease; J43.9 Emphysema, unspecified; J45.20 Mild intermittent asthma, uncomplicated; K21.9 Gastro-esophageal reflux disease without esophagitis; M16.0 Bilateral primary osteoarthritis of hip; M81.0 Age-related osteoporosis without current pathological fracture; R73.03 Prediabetes; Z88.8 Allergy status to other drugs, medicaments and biological substances
CPT/HCPCS: 87635; 87811; 93005; 93010

== ENCOUNTER 2024-03-07 12:59 | Inpatient (IN) | payer OTHER ==
[2024-03-07 14:01] VITALS: BMI 19.9
[2024-03-07] MEDS ORDERED: hydrOXYzine PAMOATE 25 MG CAPSULE (FP) PO PRN (17:30)
[2024-03-07] MEDS ORDERED: BENZOCAINE/MENTHOL (CHLORASEPTIC ) LOZENGE MM PRN (17:30)
[2024-03-07] MEDS ORDERED: ONDANSETRON *ODT* 4 MG TABLET SL PRN (17:30)
[2024-03-07] MEDS ORDERED: MAGNESIUM HYDROX 2400MG/30ML ORAL SUSPENSION 30 ML CUP PO PRN (17:30)
[2024-03-07] MEDS ORDERED: guaiFENesin 600 MG TABLET.ER (FP) PO PRN (17:30)
[2024-03-07] MEDS ORDERED: POLYETHYLENE GLYCOL (HEALTHYLAX) 3350 17 GM PACKET PO PRN (17:30)
[2024-03-07] MEDS ORDERED: NALOXONE HCL (KLOXXADO) 8 MG SPRAY NS PRN (17:30)
[2024-03-07] MEDS ORDERED: BISMUTH SUBSALICYLATE 524 MG/30 ML PO PRN (17:30)
[2024-03-07] MEDS ORDERED: DICYCLOMINE HCL 10 MG CAPSULE PO PRN (17:30)
[2024-03-07] MEDS ORDERED: LOPERAMIDE HCL 2 MG CAPSULE PO PRN (17:30)
[2024-03-07] MEDS ORDERED: MAG HYDROX/AL HYDROX/SIMETH 30 ML UNIT-DOSE CUP PO PRN (17:30)
[2024-03-07] MEDS ORDERED: BENZONATATE 200 MG CAPSULE PO PRN (17:30)
[2024-03-07] MEDS ORDERED: ACETAMINOPHEN 325 MG TABLET (FP) PO PRN (17:30)
[2024-03-07] MEDS ORDERED: NALOXONE HCL 0.4 MG/ML VIAL IM PRN (17:30)
[2024-03-07] MEDS: IBUPROFEN 600 MG TABLET (FP) PO PRN (18:56)
[2024-03-07] MEDS ORDERED: ALBUTEROL SO4 HFA INHALER IH PRN (19:34)
[2024-03-07 21:34] VITALS: RESP 16
[2024-03-07] MEDS: MELATONIN 5 MG TABLETS PO SCH (22:21)
[2024-03-07] MEDS: THIAMINE 100 MG TABLET PO SCH (22:22)
[2024-03-08] MEDS: IBUPROFEN 400 MG TABLET (FP) PO PRN (06:11)
[2024-03-08] MEDS: DOLUTEGRAVIR SODIUM 50 MG TABLET (NON-FORMULARY) PO SCH (07:37)
[2024-03-08] MEDS: lamiVUDine 150 MG TABLET PO SCH (08:20)
[2024-03-08] MEDS: PRENATAL VITAMINS W/ FOLIC ACID TABLET (FP) PO SCH (09:32)
[2024-03-08] MEDS ORDERED: PATIENT'S OWN MEDICATION (NON-FORMULARY) (Dolutegravir Sodium/Lamivudine [Dovato 50-300 Mg PO SCH (10:00)
[2024-03-08 11:34] LABS: HEMATOCRIT 34.8 % (32.4-45.2); HEMOGLOBIN 11.9 GM/dL (10.7-15.3); MCH 33.6 pg (25.7-33.7); MCHC 34.2 g/dl (32.0-36.0); MEAN CELL VOLUME 98.1 fl (80-96); MEAN PLT VOLUME 8.2 fl (7.5-11.1); PLATELET COUNT 302 10^3/uL (134-434); RBC 3.55 M/mm3 (3.60-5.2); RDW 13.5 % (11.6-15.6)
[2024-03-08 11:41] LABS: CHLORIDE 108 mmol/L (98-107); POTASSIUM 3.9 mmol/L (3.5-5.1); SODIUM 136 mmol/L (136-145)
[2024-03-08 11:45] LABS: ALBUMIN 3.4 g/dl (3.4-5.0); ANION GAP 3 mmol/L (4-13); CALCIUM 8.9 mg/dL (8.5-10.1); CO2 25 mmol/L (21-32); GLUCOSE,RANDOM 83 mg/dL (74-106)
[2024-03-08 11:46] LABS: BLOOD UREA NITROGEN 18.1 mg/dL (7-18)
[2024-03-08 11:47] LABS: CREATININE 0.6 mg/dL (0.55-1.3)
[2024-03-08 11:49] LABS: SGOT/AST 24 U/L (15-37); SGPT/ALT 33 U/L (13-61)
[2024-03-08 11:50] LABS: BILIRUBIN,TOTAL 0.2 mg/dL (0.2-1); TOT PROT 6.3 g/dl (6.4-8.2)
[2024-03-08 11:51] LABS: ALK PHOS 144 U/L (45-117)
[2024-03-08] MEDS: ACETAMINOPHEN 325 MG TABLET (FP) PO PRN (15:02)
[2024-03-08] MEDS: METHOCARBAMOL 500 MG TABLET PO PRN (22:27)
[2024-03-09 09:33] VITALS: BP 112/65; PULSE 63; TEMP 97.6
[2024-03-11] MEDS ORDERED: ERGOCALCIFEROL (VIT D2) 50,000 UNIT (1.25 MG) CAPSULE PO SCH (10:00)
== END 2024-03-09 12:35 | disposition other institution (70) | DRG 774 ==
LOC: YASAS 12:59 → Y6N 18:01
PROVIDERS: ADMIT Allergy & Immunology; ATTEND Surgery
PROC: HZ2ZZZZ Detoxification Services for Substance Abuse Treatment (ICD-10-PCS; principal; 2024-03-07)
DX: F10.230 Alcohol dependence with withdrawal, uncomplicated (principal); F14.20 Cocaine dependence, uncomplicated; F17.210 Nicotine dependence, cigarettes, uncomplicated; F19.982 Other psychoactive substance use, unspecified with psychoactive substance-induced sleep disorder; F25.9 Schizoaffective disorder, unspecified; B20 Human immunodeficiency virus [HIV] disease; J45.20 Mild intermittent asthma, uncomplicated; M16.0 Bilateral primary osteoarthritis of hip; M81.0 Age-related osteoporosis without current pathological fracture; D57.3 Sickle-cell trait; R26.2 Difficulty in walking, not elsewhere classified; Z99.89 Dependence on other enabling machines and devices; Z86.11 Personal history of tuberculosis; Z86.69 Personal history of other diseases of the nervous system and sense organs; Z91.51 Personal history of suicidal behavior; Z56.0 Unemployment, unspecified
CPT/HCPCS: 36415; 80053; 80305; 80307; 85027; 86593; 86780; 87811; 93005; 93010

== ENCOUNTER 2024-03-09 12:42 | Inpatient (IN) | payer OTHER ==
[2024-03-09] MEDS ORDERED: NICOTINE POLACRILEX 4 MG LOZENGE BC PRN (16:00)
[2024-03-09] MEDS ORDERED: LOPERAMIDE HCL 2 MG CAPSULE PO PRN (16:00)
[2024-03-09] MEDS ORDERED: NICOTINE 14 MG/24 HOURS TOPICAL PATCH TD PRN (16:00)
[2024-03-09] MEDS ORDERED: IBUPROFEN 600 MG TABLET (FP) PO PRN (16:00)
[2024-03-09] MEDS ORDERED: NICOTINE POLACRILEX 4 MG GUM BUC PRN (16:00)
[2024-03-09] MEDS ORDERED: MAG HYDROX/AL HYDROX/SIMETH 30 ML UNIT-DOSE CUP PO PRN (16:00)
[2024-03-09] MEDS ORDERED: hydrOXYzine PAMOATE 25 MG CAPSULE (FP) PO PRN (16:00)
[2024-03-09] MEDS ORDERED: guaiFENesin 600 MG TABLET.ER (FP) PO PRN (16:00)
[2024-03-09] MEDS ORDERED: NALOXONE HCL 0.4 MG/ML VIAL IVPUSH PRN (16:00)
[2024-03-09] MEDS ORDERED: IBUPROFEN 400 MG TABLET (FP) PO PRN (16:00)
[2024-03-09] MEDS ORDERED: NALOXONE (NYS OPIOID OVERDOSE PROGRAM) 4 MG/0.1 ML SPRAY NS PRN (16:00)
[2024-03-09] MEDS ORDERED: BENZONATATE 200 MG CAPSULE PO PRN (16:00)
[2024-03-09] MEDS ORDERED: MAGNESIUM HYDROX 2400MG/30ML ORAL SUSPENSION 30 ML CUP PO PRN (16:00)
[2024-03-09] MEDS ORDERED: BENZOCAINE/MENTHOL (CHLORASEPTIC ) LOZENGE MM PRN (16:00)
[2024-03-09] MEDS ORDERED: POLYETHYLENE GLYCOL (HEALTHYLAX) 3350 17 GM PACKET PO PRN (16:00)
[2024-03-09] MEDS: LIDOCAINE 5% TOPICAL PATCH TP SCH (18:02)
[2024-03-09] MEDS: METHOCARBAMOL 500 MG TABLET PO PRN (18:07)
[2024-03-09] MEDS: ACETAMINOPHEN 325 MG TABLET (FP) PO PRN (20:39)
[2024-03-09] MEDS: THIAMINE 100 MG TABLET PO SCH (21:21)
[2024-03-09] MEDS: MELATONIN 5 MG TABLETS PO SCH (21:21)
[2024-03-10] MEDS: LIDOCAINE PATCH REMOVAL MC SCH (00:29)
[2024-03-10] MEDS: ALBUTEROL SO4 HFA INHALER IH PRN (04:55)
[2024-03-10] MEDS: PRENATAL VITAMINS W/ FOLIC ACID TABLET (FP) PO SCH (09:51)
[2024-03-10] MEDS: PATIENT'S OWN MEDICATION (NON-FORMULARY) (Dolutegravir Sodium/Lamivudine [Dovato 50-300 Mg PO SCH (16:24)
[2024-03-10] MEDS: lamiVUDine 150 MG TABLET PO SCH (19:15)
[2024-03-10] MEDS: DOLUTEGRAVIR SODIUM 50 MG TABLET (NON-FORMULARY) PO SCH (19:16)
[2024-03-10] MEDS: ZIPRASIDONE 20 MG CAPSULE PO SCH (21:19)
[2024-03-11] MEDS: ERGOCALCIFEROL (VIT D2) 50,000 UNIT (1.25 MG) CAPSULE PO SCH (11:59)
[2024-03-11] MEDS: PATIENT'S OWN MEDICATION (NON-FORMULARY) (Meloxicam 15 MG Tablet) PO SCH (13:18)
[2024-03-11] MEDS: METHYL SALICYLATE/MENTHOL OINT 30 GM TUBE TP PRN (21:38)
[2024-03-12 06:54] VITALS: RESP 18
[2024-03-12] MEDS: GABAPENTIN 300 MG CAPSULE PO SCH (16:50)
[2024-03-13 06:37] VITALS: BP 130/85; PULSE 87; TEMP 97.8
== END 2024-03-13 14:02 | disposition home or self-care (01) | DRG 772 ==
LOC: YASAS 12:42 → Y5N 12:44
PROVIDERS: ADMIT Allergy & Immunology; ATTEND Psychiatry & Neurology Pain Medicine
PROC: HZ42ZZZ Group Counseling for Substance Abuse Treatment, Cognitive-Behavioral (ICD-10-PCS; principal; 2024-03-09)
DX: F10.20 Alcohol dependence, uncomplicated (principal); F14.20 Cocaine dependence, uncomplicated; F17.210 Nicotine dependence, cigarettes, uncomplicated; F25.9 Schizoaffective disorder, unspecified; F19.982 Other psychoactive substance use, unspecified with psychoactive substance-induced sleep disorder; F91.8 Other conduct disorders; B20 Human immunodeficiency virus [HIV] disease; J45.20 Mild intermittent asthma, uncomplicated; J43.9 Emphysema, unspecified; K21.9 Gastro-esophageal reflux disease without esophagitis; M16.0 Bilateral primary osteoarthritis of hip; M81.0 Age-related osteoporosis without current pathological fracture; D57.3 Sickle-cell trait; R26.2 Difficulty in walking, not elsewhere classified; Z99.89 Dependence on other enabling machines and devices; Z91.199 Patient's noncompliance with other medical treatment and regimen due to unspecified reason
CPT/HCPCS: 36415; 82140; 86803